=== PATIENT | female | born 1950 | race Caucasian/White ===

== ENCOUNTER 2019-05-01 09:39 | Emergency (ER) | payer MEDICARE, OTHER ==
[2019-05-01 09:50] VITALS: TEMP 98
--- NOTE | 2019-05-01 10:04 | ED ---
General Adult HPI - General Chief complaint: Anxiety Stated complaint: EPS eval Time Seen by Provider: 05/01/19 09:44 Source: patient, EMS, RN notes reviewed Mode of arrival: EMS Limitations: no limitations - History of Present Illness Initial comments: 68-year-old female presents emergency department via EMS for psychiatric evaluation. Patient reportedly locked herself out of the house so she called police upon arrival she was found to be depressed, suicidal. Patient states that she lost her 1 month ago. Patient states that she is not coping well with this. She states that she does feels that she does not know why she was left behind. She has not given any exact suicidal ideation and no plan. Denies any alcohol or drug abuse. She does admit that she fell yesterday because she tripped on her runner rug and did strike her head but she has no complaints of head, neck pain. She does have an abrasion on the left hand, states that her tetanus is up-to-date. - Related Data Home Medications Medication Instructions Recorded Confirmed Carisoprodol [Soma] 350 mg PO TID 09/03/15 05/01/19 DULoxetine HCL [Cymbalta] 60 mg PO DAILY 09/03/15 05/01/19 Enalapril [Vasotec] 10 mg PO DAILY 09/03/15 05/01/19 Folic Acid 1 mg PO DAILY 09/03/15 05/01/19 Furosemide [Lasix] 40 mg PO DAILY 09/03/15 05/01/19 Hydroxychloroquine Sulfate 200 mg PO HS 09/03/15 05/01/19 [Plaquenil] Omeprazole [PriLOSEC] 20 mg PO AC-BRKFST 09/03/15 05/01/19 Estradiol Cream [Estrace Cream 1 gm VAGINAL DIRECTED 05/01/19 05/01/19 0.01%] Hydrocodone/Acetaminophen [[place] 1 tab PO Q6H PRN 05/01/19 05/01/19 10-325] Methotrexate Sod 25mg/Ml Injec 25 mg SQ WE 05/01/19 05/01/19 Morphine Sulfate [Ms Contin] 30 mg PO Q12HR 05/01/19 05/01/19 busPIRone HCl [Buspar] 10 mg PO BID 05/01/19 05/01/19 Allergies Allergy/AdvReac Type Severity Reaction Status Date / Time adalimumab [From Humira] Allergy Rash/Hives Verified 05/01/19 11:49 cephalexin monohydrate Allergy Rash/Hives Verified 05/01/19 11:49 [From Keflex] meperidine HCl [From Demerol] AdvReac Nausea & Verified 05/01/19 11:49 Vomiting TB Med Allergy Unknown Uncoded 05/01/19 11:49 Review of Systems ROS Statement: Those systems with pertinent positive or pertinent negative responses have been documented in the HPI. ROS Other: All systems not noted in ROS Statement are negative. Past Medical History Past Medical History: Hypertension, Rheumatoid Arthritis (RA) History of Any Multi-Drug Resistant Organisms: None Reported Past Surgical History: Hysterectomy, Joint Replacement, Tonsillectomy Past Psychological History: No Psychological Hx Reported Smoking Status: Never smoker Past Alcohol Use History: None Reported Past Drug Use History: None Reported General Exam Limitations: no limitations General appearance: alert, in no apparent distress Head exam: Present: atraumatic, normocephalic. Absent: normal inspection (small hematoma on the right side of forehead) Eye exam: Present: normal appearance, PERRL, EOMI. Absent: scleral icterus, conjunctival injection, periorbital swelling ENT exam: Present: normal exam, mucous membranes moist Neck exam: Present: normal inspection, full ROM. Absent: tenderness, meningismus, lymphadenopathy Respiratory exam: Present: normal lung sounds bilaterally. Absent: respiratory distress, wheezes, rales, rhonchi, stridor Cardiovascular Exam: Present: regular rate, normal rhythm, normal heart sounds. Absent: systolic murmur, diastolic murmur, rubs, gallop, clicks Extremities exam: Present: other (abrasion to the left hand fourth fdigit) Course Vital Signs 05/01/19 09:45 Temperature 98.0 F Pulse Rate 87 Respiratory 16 Rate Blood Pressure 137/75 O2 Sat by Pulse 95 Oximetry - Reevaluation(s) Reevaluation #1: 05/01/19 10:[address] of the head and neck patient refuses states that she is asymptomatic. Medical Decision Making - Medical Decision Making patient evaluated by EPS case discussed with psychiatrist recommends patient be discharged she is not suicidal she does contract for safety and she does have underlying depression from recent grieving deaths. - Lab Data Lab Results 12/16/19 Range/Units 10:25 Urine Opiates Screen Detected H (NotDetected) Ur Oxycodone Screen Not Detected (NotDetected) Urine Methadone Screen Not Detected (NotDetected) Ur Propoxyphene Screen Not Detected (NotDetected) Ur Barbiturates Screen Not Detected (NotDetected) U Tricyclic Antidepress Not Detected (NotDetected) Ur Phencyclidine Scrn Not Detected (NotDetected) Ur Amphetamines Screen Not Detected (NotDetected) U Methamphetamines Scrn Not Detected (NotDetected) U Benzodiazepines Scrn Detected H (NotDetected) Urine Cocaine Screen Not Detected (NotDetected) U Marijuana (THC) Screen Not Detected (NotDetected) Disposition Clinical Impression: Depression Disposition: HOME SELF-CARE Condition: Stable Instructions (If sedation given, give patient instructions): Depression (ED) Additional Instructions: Please return to the Emergency Department if symptoms worsen or any other concerns. Is patient prescribed a controlled substance at d/c from ED?: No Referrals: Marina Franklin MD [Primary Care Provider] - 1-2 days Time of Disposition: 14:05
[2019-05-01 10:55] LABS: Amphetamine Screen,Urine Not Detected (NotDetected); Barbiturate Screen,Urine Not Detected (NotDetected); Benzodiazepines Screen,Urine Detected (NotDetected); Cocaine Screen,Urine Not Detected (NotDetected); Methadone Screen, Urine Not Detected (NotDetected); Opiate Screen,Urine Detected (NotDetected); Oxycodone Screen, Urine Not Detected (NotDetected); Phencyclidine Screen,Urine Not Detected (NotDetected); Tricyclic Antidepressant,Urine Not Detected (NotDetected); Urn Cannabinoid Scrn Not Detected (NotDetected)
--- NOTE | 2019-05-01 13:52 | CT ---
EXAMINATION TYPE: CT brain tatum [facility] con DATE OF EXAM: 05/01/2019 COMPARISON: 09/03/2015 HISTORY: Fall, bruise to right side supraorbital area CT DLP: 1281.[address] of the brain was performed. The ventricles, basal cisterns and sulci overlying the cerebral convexities demonstrate mild enlargem ent. There is no evidence for intracranial hemorrhage or sulcal effacement. There is decreased attenuatio n about the periventricular white matter and deep white matter of both cerebral hemispheres, compatib le with chronic small vessel ischemia. No mass effects are seen. If symptoms persist consider MRI. Osseous calvarium is intact. IMPRESSION: 1. Age related atrophic and chronic small vessel ischemic change without acute intracranial process seen at this time. CT Cervical Spine: Unenhanced CT of the cervical spine was performed with bone and soft tissue window settings submitted . Coronal and sagittal reconstruction is obtained. There is normal alignment and prevertebral soft tissues. No evidence for acute cervical fracture . Scattered degenerative disc disease and spondylosis. Biapical scarring. IMPRESSION: 1. No evidence for acute fracture or subluxation of the cervical spine.
[2019-05-01 14:44] VITALS: BP 130/70; PULSE 88; RESP 18
== END 2019-05-01 14:10 | disposition home or self-care (01) ==
LOC: EC 09:39
DX: F32.9 Major depressive disorder, single episode, unspecified (principal); S60.512A Abrasion of left hand, initial encounter; I10 Essential (primary) hypertension; M06.9 Rheumatoid arthritis, unspecified; Z79.899 Other long term (current) drug therapy; Z88.1 Allergy status to other antibiotic agents; Z88.5 Allergy status to narcotic agent; Z88.7 Allergy status to serum and vaccine; Z88.8 Allergy status to other drugs, medicaments and biological substances; W01.0XXA Fall on same level from slipping, tripping and stumbling without subsequent striking against object, initial encounter
CPT/HCPCS: 70450; 72125; 80306; 82075; 99284

== ENCOUNTER 2019-05-03 11:43 | Emergency (ER) | payer MEDICARE, OTHER ==
[2019-05-03 12:15] VITALS: TEMP 98.3
[2019-05-03 13:39] VITALS: RESP 18
[2019-05-03 13:50] LABS: Basophils % (A) 0 %; Eosinophils # (A) 0.3 k/uL (0-0.7); Eosinophils % (A) 5 %; HCT 31.2 % (34.0-46.0); HGB 11.7 gm/dL (11.4-16.0); Lymphocytes # (A) 1.4 k/uL (1.0-4.8); Lymphocytes % (A) 23 %; MCH 35.8 pg (25.0-35.0); MCHC 37.3 g/dL (31.0-37.0); MCV 95.9 fL (80.0-100.0); Mean Platelet Volume 6.7; Monocytes # (A) 0.3 k/uL (0-1.0); Monocytes % (A) 5 %; Neutrophils % (A) 64 %; Platelet Count 372 k/uL (150-450); RBC 3.26 m/uL (3.80-5.40); RDW 14.3 % (11.5-15.5); WBC 6.2 k/uL (3.8-10.6)
[2019-05-03 14:18] LABS: Albumin 4.6 g/dL (3.5-5.0); Appearance,Urine Clear (Clear); Bilirubin,Urine Negative (Negative); Blood,Urine Negative (Negative); Calcium 9.5 mg/dL (8.4-10.2); Color,Urine Light Yellow; Glucose,Urine (UA) Negative (Negative); Hyaline Casts,Urine 6 /lpf (0-2); Ketones,Urine Negative (Negative); Leukocyte Esterase,Urine Small (Negative); Mucus,Urine Rare /hpf; Nitrite,Urine Negative (Negative); Potassium 3.9 mmol/L (3.5-5.1); Protein,Urine Negative (Negative); RBC,Urine 1 /hpf (0-5); Specific Gravity,Urine 1.006 (1.001-1.035); Squamous Epithelial Cell,Urine 5 /hpf (0-4); Total Bilirubin 0.6 mg/dL (0.2-1.3); Total Protein 7.8 g/dL (6.3-8.2); Urobilinogen,Urine <2.0 mg/dL (<2.0); WBC,Urine 6 /hpf (0-5)
--- NOTE | 2019-05-03 14:25 | ED ---
General Adult HPI - General Chief complaint: Recheck/Abnormal Lab/Rx Stated complaint: Dehydration Source: patient Mode of arrival: ambulatory Limitations: no limitations - History of Present Illness Initial comments: The patient is a [age] female presents the emergency department with reported possible dehydration. She states that she sustained a mechanical fall 2 days ago and hit her head. She did come into the emergency room and had a CT performed. Imaging was negative. She then called and discussed the case with her primary care physician. Her primary care physician said that her weakness may have been from dehydration she wanted her to go into the emergency room and be evaluated. The patient states that she lost her 2 months ago. She has been grieving his loss. She has been eating and drinking without difficulty. Denies any difficulties with sleep. States that she does feel that on most days however she thinks that she is getting over the loss fairly well. Her primary care physician feels that it is taking her too long to grieve. The patient denies any suicidal, homicidal ideations. No hallucinations. Denies any drug use. There are no other alleviating, precipitating or modifying - Related Data Home Medications Medication Instructions Recorded Confirmed Carisoprodol [Soma] 350 mg PO TID 09/03/15 05/01/19 DULoxetine HCL [Cymbalta] 60 mg PO DAILY 09/03/15 05/01/19 Enalapril [Vasotec] 10 mg PO DAILY 09/03/15 05/01/19 Folic Acid 1 mg PO DAILY 09/03/15 05/01/19 Furosemide [Lasix] 40 mg PO DAILY 09/03/15 05/01/19 Hydroxychloroquine Sulfate 200 mg PO HS 09/03/15 05/01/19 [Plaquenil] Omeprazole [PriLOSEC] 20 mg PO AC-BRKFST 09/03/15 05/01/19 Estradiol Cream [Estrace Cream 1 gm VAGINAL DIRECTED 05/01/19 05/01/19 0.01%] Hydrocodone/Acetaminophen [[place] 1 tab PO Q6H PRN 05/01/19 05/01/19 10-325] Methotrexate Sod 25mg/Ml Injec 25 mg SQ WE 05/01/19 05/01/19 Morphine Sulfate [Ms Contin] 30 mg PO Q12HR 05/01/19 05/01/19 busPIRone HCl [Buspar] 10 mg PO BID 05/01/19 05/01/19 Allergies Allergy/AdvReac Type Severity Reaction Status Date / Time adalimumab [From Humira] Allergy Rash/Hives Verified 05/01/19 11:49 cephalexin monohydrate Allergy Rash/Hives Verified 05/01/19 11:49 [From Keflex] meperidine HCl [From Demerol] AdvReac Nausea & Verified 05/01/19 11:49 Vomiting TB Med Allergy Unknown Uncoded 05/01/19 11:49 Review of Systems ROS Statement: Those systems with pertinent positive or pertinent negative responses have been documented in the HPI. ROS Other: All systems not noted in ROS Statement are negative. Past Medical History Past Medical History: Hypertension, Rheumatoid Arthritis (RA) History of Any Multi-Drug Resistant Organisms: None Reported Past Surgical History: Hysterectomy, Joint Replacement, Tonsillectomy Past Psychological History: No Psychological Hx Reported Smoking Status: Never smoker Past Alcohol Use History: None Reported Past Drug Use History: None Reported General Exam Limitations: no limitations Course Vital Signs 05/03/19 05/03/19 05/03/19 12:12 13:37 15:37 Temperature 98.3 F Pulse Rate 96 70 90 Respiratory 19 18 18 Rate Blood Pressure 107/63 128/70 121/72 O2 Sat by Pulse 93 L 100 100 Oximetry 05/03/19 17:10 Temperature Pulse Rate 78 Respiratory 18 Rate Blood Pressure 138/72 O2 Sat by Pulse 100 Oximetry Medical Decision Making - Medical Decision Making Upon arrival the patient was placed into hallway 11. I did a thorough history and physical exam. The patient denies that she is suicidal or homicidal. A complete laboratory studies to evaluate for dehydration. CBC, CMP are within normal range. Urinalysis shows small leukocyte esterase with 6 white blood cells. No bacteria. I did receive a call from the patient's primary care physician who states that they are concerned for the patient's safety. They state that she has been having erratic behavior and made some comments to her brother and passed her that she didn't want to live. Because of this I did director of group counseling program bps. They did evaluate the patient's. She is of sound mind during the evaluation. They do believe that the patient is stable for discharge. 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 The patient is of sound mind and not curren tly suicidal, homicidal or hallucinating. The patient will be discharged home. She is asked to return to the emergency room for any worsening symptoms. - Lab Data Result diagrams: 05/03/19 13:30 05/03/19 13:30 Lab Results 05/03/19 05/03/19 05/03/19 Range/Units 13:30 13:30 13:30 WBC 6.2 (3.8-10.6) k/uL RBC 3.26 L (3.80-5.40) m/uL Hgb 11.7 (11.4-16.0) gm/dL Hct 31.2 L (34.0-46.0) % MCV 95.9 (80.0-100.0) fL MCH 35.8 H (25.0-35.0) pg MCHC 37.3 H (31.0-37.0) g/dL RDW 14.3 (11.5-15.5) % Plt Count 372 (150-450) k/uL Neutrophils % 64 % Lymphocytes % 23 % Monocytes % 5 % Eosinophils % 5 % Basophils % 0 % Neutrophils # 4.0 (1.3-7.7) k/uL Lymphocytes # 1.4 (1.0-4.8) k/uL Monocytes # 0.3 (0-1.0) k/uL Eosinophils # 0.3 (0-0.7) k/uL Basophils # 0.0 (0-0.2) k/uL Sodium 142 (137-145) mmol/L Potassium 3.9 (3.5-5.1) mmol/L Chloride 112 H (98-107) mmol/L Carbon Dioxide 19 L (22-30) mmol/L Anion Gap 11 mmol/L BUN 24 H (7-17) mg/dL Creatinine 1.12 H (0.52-1.04) mg/dL Est GFR (CKD-EPI)AfAm 59 (>60 ml/min/1.73 sqM) Est GFR (CKD-EPI)NonAf 51 (>60 ml/min/1.73 sqM) Glucose 121 H (74-99) mg/dL Calcium 9.5 (8.4-10.2) mg/dL Total Bilirubin 0.6 (0.2-1.3) mg/dL AST 45 H (14-36) U/L ALT 28 (4-34) U/L Alkaline Phosphatase 104 (38-126) U/L Total Protein 7.8 (6.3-8.2) g/dL Albumin 4.6 (3.5-5.0) g/dL Urine Color Light Yellow Urine Appearance Clear (Clear) Urine pH 5.0 (5.0-8.0) Ur Specific [place] 1.006 (1.001-1.035) Urine Protein Negative (Negative) Urine Glucose (UA) Negative (Negative) Urine Ketones Negative (Negative) Urine Blood Negative (Negative) Urine Nitrite Negative (Negative) Urine Bilirubin Negative (Negative) Urine Urobilinogen <2.0 (<2.0) mg/dL Ur Leukocyte Esterase Small H (Negative) Urine RBC 1 (0-5) /hpf Urine WBC 6 H (0-5) /hpf Ur Squamous Epith Cells 5 H (0-4) /hpf Hyaline Casts 6 H (0-2) /lpf Urine Mucus Rare H (None) /hpf Disposition Clinical Impression: Dehydration, Depression Disposition: HOME SELF-CARE Condition: Stable Additional Instructions: Please follow up with your primary care doctor in 2-4 days. Return to the emergency room for any new or worsening symptoms Is patient prescribed a controlled substance at d/c from ED?: No Referrals: Marina Franklin MD [Primary Care Provider] - 1-2 days Time of Disposition: 16:56
[2019-05-03 17:11] VITALS: BP 138/72; PULSE 78
== END 2019-05-03 17:10 | disposition home or self-care (01) ==
LOC: EC 11:43
DX: E86.0 Dehydration (principal); F32.9 Major depressive disorder, single episode, unspecified; Z79.899 Other long term (current) drug therapy; Z88.5 Allergy status to narcotic agent; Z88.1 Allergy status to other antibiotic agents; Z88.8 Allergy status to other drugs, medicaments and biological substances
CPT/HCPCS: 36415; 80053; 81001; 82075; 85025; 99283

== ENCOUNTER 2020-08-26 14:54 | Inpatient (IN) | payer MEDICARE, OTHER ==
[2020-08-26] MEDS ORDERED: SODIUM CHLORIDE 0.9% 1,000 ML IV ONE (15:29)
[2020-08-26 15:50] LABS: HCT 32.3 % (34.0-46.0); HGB 10.6 gm/dL (11.4-16.0); MCH 31.8 pg (25.0-35.0); MCHC 32.9 g/dL (31.0-37.0); MCV 96.6 fL (80.0-100.0); Mean Platelet Volume 6.7; Platelet Count 566 k/uL (150-450); RBC 3.34 m/uL (3.80-5.40); RDW 14.8 % (11.5-15.5); WBC 36.1 k/uL (3.8-10.6)
--- NOTE | 2020-08-26 15:56 | ED ---
General Adult HPI - General Chief complaint: Altered Mental Status Stated complaint: CARYL Time Seen by Provider: 08/26/20 15:06 Source: patient, EMS, RN notes reviewed Mode of arrival: EMS Limitations: altered mental status - History of Present Illness Initial comments: Patient is a pleasant 69-year-old female presenting to the emergency department with confusion. Patient was found wandering around her yard. Patient is unclear why. Patient is able to answer questions however does need to be re- asked questions at times or redirected on instructions. Patient does admit to having some difficulty in breathing. Patient is unclear of any history of dyspnea. Patient is a poor historian. - Related Data Home Medications Medication Instructions Recorded Confirmed Carisoprodol [Soma] 350 mg PO TID 09/03/15 08/26/20 DULoxetine HCL [Cymbalta] 60 mg PO DAILY 09/03/15 08/26/20 Enalapril [Vasotec] 10 mg PO DAILY 09/03/15 08/26/20 Furosemide [Lasix] 40 mg PO DAILY 09/03/15 08/26/20 Hydroxychloroquine Sulfate 200 mg PO DAILY 09/03/15 08/26/20 [Plaquenil] Hydrocodone/Acetaminophen [Duff 1 tab PO Q4H PRN 05/01/19 08/26/20 10-325] Methotrexate Sod 25mg/Ml Injec 15 mg SQ Q7D 05/01/19 08/26/20 Morphine Sulfate [Ms Contin] 30 mg PO Q12HR PRN 05/01/19 08/26/20 busPIRone HCl [Buspar] 10 mg PO BID 05/01/19 08/26/20 Fluticasone Nasal [place] [Flonase 2 spr EA NOSTRIL DAILY 08/26/20 08/26/20 Nasal [place]] Sulfamethoxazole/Trimethoprim 1 tab PO BID 08/26/20 08/26/20 [Bactrim DS 800-160 mg] Allergies Allergy/AdvReac Type Severity Reaction Status Date / Time adalimumab [From Humira] Allergy Rash/Hives Verified 08/26/20 16:55 cephalexin monohydrate Allergy Rash/Hives Verified 08/26/20 16:55 [From Keflex] meperidine HCl [From Demerol] AdvReac Nausea & Verified 08/26/20 16:55 Vomiting TB Med Allergy Unknown Uncoded 08/26/20 15:07 Review of Systems ROS Statement: Those systems with pertinent positive or pertinent negative responses have been documented in the HPI. ROS Other: All systems not noted in ROS Statement are negative. Constitutional: Denies: fever Eyes: Denies: eye pain ENT: Denies: ear pain Respiratory: Reports: as per HPI, dyspnea Cardiovascular: Denies: chest pain Endocrine: Denies: fatigue Gastrointestinal: Denies: abdominal pain Genitourinary: Denies: dysuria Musculoskeletal: Denies: back pain Skin: Denies: rash Neurological: Reports: as per HPI. Denies: headache, weakness Past Medical History Past Medical History: Hypertension, Rheumatoid Arthritis (RA) History of Any Multi-Drug Resistant Organisms: None Reported Past Surgical History: Hysterectomy, Joint Replacement, Tonsillectomy Past Psychological History: No Psychological Hx Reported Smoking Status: Former smoker Past Alcohol Use History: None Reported Past Drug Use History: None Reported General Exam Limitations: altered mental status General appearance: alert, in no apparent distress Head exam: Present: atraumatic, normocephalic Eye exam: Present: normal appearance, PERRL, EOMI. Absent: nystagmus ENT exam: Present: mucous membranes dry Neck exam: Present: normal inspection. Absent: tenderness, meningismus Respiratory exam: Present: normal lung sounds bilaterally Cardiovascular Exam: Present: regular rate, normal rhythm GI/Abdominal exam: Present: soft. Absent: tenderness Extremities exam: Present: normal inspection Neurological exam: Present: alert, oriented X3, CN II-XII intact, other (Occasionally needs to be redirected or re asked questions). Absent: motor sensory deficit Psychiatric exam: Present: normal affect, normal mood Skin exam: Present: normal color Course Vital Signs 08/26/20 08/26/20 08/26/20 14:58 15:30 16:00 Temperature 98.8 F Pulse Rate 97 97 Respiratory 24 20 Rate Blood Pressure 108/51 94/63 O2 Sat by Pulse 94 L 87 L 90 L Oximetry 08/26/20 08/26/20 16:21 17:10 Temperature Pulse Rate 90 90 Respiratory 20 20 Rate Blood Pressure 118/59 107/66 O2 Sat by Pulse 90 L 89 L Oximetry EKG Findings - EKG Comments: EKG Findings:: Normal sinus rhythm and 94. IL 120. QRS 76. QT 358. QTC 447. Normal axis. Low QRS voltage. Nonspecific ST-T. Medical Decision Making - Medical Decision Making Patient reevaluated. Patient updated. Case discussed in detail with Dr. muñoz, who will admit covering for Dr. Pascal. He does agree with consult with nephrology and pulmonology. Patient has been increased to Ventimask. - Lab Data Result diagrams: 08/26/20 15:35 08/26/20 15:35 Lab Results 08/26/20 08/26/20 08/26/20 Range/Units 15:35 15:35 15:35 WBC 36.1 H (3.8-10.6) k/uL RBC 3.34 L (3.80-5.40) m/uL Hgb 10.6 L (11.4-16.0) gm/dL Hct 32.3 L (34.0-46.0) % MCV 96.6 (80.0-100.0) fL MCH 31.8 (25.0-35.0) pg MCHC 32.9 (31.0-37.0) g/dL RDW 14.8 (11.5-15.5) % Plt Count 566 H (150-450) k/uL MPV 6.7 PT 10.3 (9.0-12.0) sec INR 1.0 (<1.2) APTT 21.5 L (22.0-30.0) sec Sample Site ABG pH (7.35-7.45) ABG pCO2 (35-45) mmHg ABG pO2 (83-108) mmHg ABG HCO3 (21-25) mmol/L ABG Total CO2 (19-24) mmol/L ABG O2 Saturation (94-97) % ABG Base Excess mmol/L Law Test VBG pH (7.31-7.41) VBG pCO2 (37-51) mmHg VBG HCO3 (24-28) mmol/L FiO2 % Sodium (137-145) mmol/L Potassium (3.5-5.1) mmol/L Chloride (98-107) mmol/L Carbon Dioxide (22-30) mmol/L Anion Gap mmol/L BUN (7-17) mg/dL Creatinine (0.52-1.04) mg/dL Est GFR (CKD-EPI)AfAm (>60 ml/min/1.73 sqM) Est GFR (CKD-EPI)NonAf (>60 ml/min/1.73 sqM) Glucose (74-99) mg/dL POC Glucose (mg/dL) (75-99) mg/dL POC Glu Hazardous Waste Management Specialist ID Calcium (8.4-10.2) mg/dL Total Bilirubin (0.2-1.3) mg/dL AST (14-36) U/L ALT (4-34) U/L Alkaline Phosphatase (38-126) U/L Ammonia (<30) umol/L Troponin I (0.000-0.034) ng/mL Total Protein (6.3-8.2) g/dL Albumin (3.5-5.0) g/dL Urine Color Yellow Urine Appearance Cloudy H (Clear) Urine pH 5.0 (5.0-8.0) Ur Specific [place] 1.015 (1.001-1.035) Urine Protein 1+ H (Negative) Urine Glucose (UA) Negative (Negative) Urine Ketones Negative (Negative) Urine Blood Small H (Negative) Urine Nitrite Negative (Negative) Urine Bilirubin 1+ H (Negative) Urine Urobilinogen <2.0 (<2.0) mg/dL Ur Leukocyte Esterase Negative (Negative) Urine RBC 1 (0-5) /hpf Urine WBC 3 (0-5) /hpf Ur Squamous Epith Cells 2 (0-4) /hpf Urine Bacteria Rare H (None) /hpf Hyaline Casts 39 H (0-2) /lpf Urine Mucus Rare H (None) /hpf Urine Opiates Screen Detected H (NotDetected) Ur Oxycodone Screen Not Detected (NotDetected) Urine Methadone Screen Not Detected (NotDetected) Ur Propoxyphene Screen Not Detected (NotDetected) Ur Barbiturates Screen Not Detected (NotDetected) U Tricyclic Antidepress Not Detected (NotDetected) Ur Phencyclidine Scrn Not Detected (NotDetected) Ur Amphetamines Screen Not Detected (NotDetected) U Methamphetamines Scrn Not Detected (NotDetected) U Benzodiazepines Scrn Not Detected (NotDetected) Urine Cocaine Screen Not Detected (NotDetected) U Marijuana (THC) Screen Not Detected (NotDetected) Coronavirus (PCR) (Not Detectd) 08/26/20 08/26/2008/26/21 Range/Units 15:35 15:35 15:35 WBC (3.8-10.6) k/uL RBC (3.80-5.40) m/uL Hgb (11.4-16.0) gm/dL Hct (34.0-46.0) % MCV (80.0-100.0) fL MCH (25.0-35.0) pg MCHC (31.0-37.0) g/dL RDW (11.5-15.5) % Plt Count (150-450) k/uL MPV PT (9.0-12.0) sec INR (<1.2) APTT (22.0-30.0) sec Sample Site ABG pH (7.35-7.45) ABG pCO2 (35-45) mmHg ABG pO2 (83-108) mmHg ABG HCO3 (21-25) mmol/L ABG Total CO2 (19-24) mmol/L ABG O2 Saturation (94-97) % ABG Base Excess mmol/L Law Test VBG pH (7.31-7.41) VBG pCO2 (37-51) mmHg VBG HCO3 (24-28) mmol/L FiO2 % Sodium 135 L (137-145) mmol/L Potassium 5.3 H (3.5-5.1) mmol/L Chloride 103 (98-107) mmol/L Carbon Dioxide 12 L (22-30) mmol/L Anion Gap 20 mmol/L BUN 75 H (7-17) mg/dL Creatinine 6.54 H (0.52-1.04) mg/dL Est GFR (CKD-EPI)AfAm 7 (>60 ml/min/1.73 sqM) Est GFR (CKD-EPI)NonAf 6 (>60 ml/min/1.73 sqM) Glucose 115 H (74-99) mg/dL POC Glucose (mg/dL) (75-99) mg/dL POC Glu Hazardous Waste Management Specialist ID Calcium 8.3 L (8.4-10.2) mg/dL Total Bilirubin 0.4 (0.2-1.3) mg/dL AST 40 H (14-36) U/L ALT 17 (4-34) U/L Alkaline Phosphatase 115 (38-126) U/L Ammonia 30 H (<30) umol/L Troponin I 0.022 (0.000-0.034) ng/mL Total Protein 6.5 (6.3-8.2) g/dL Albumin 3.7 (3.5-5.0) g/dL Urine Color Urine Appearance (Clear) Urine pH (5.0-8.0) Ur Specific [place] (1.001-1.035) Urine Protein (Negative) Urine Glucose (UA) (Negative) Urine Ketones (Negative) Urine Blood (Negative) Urine Nitrite (Negative) Urine Bilirubin (Negative) Urine Urobilinogen (<2.0) mg/dL Ur Leukocyte Esterase (Negative) Urine RBC (0-5) /hpf Urine WBC (0-5) /hpf Ur Squamous Epith Cells (0-4) /hpf Urine Bacteria (None) /hpf Hyaline Casts (0-2) /lpf Urine Mucus (None) /hpf Urine Opiates Screen (NotDetected) Ur Oxycodone Screen (NotDetected) Urine Methadone Screen (NotDetected) Ur Propoxyphene Screen (NotDetected) Ur Barbiturates Screen (NotDetected) U Tricyclic Antidepress (NotDetected) Ur Phencyclidine Scrn (NotDetected) Ur Amphetamines Screen (NotDetected) U Methamphetamines Scrn (NotDetected) U Benzodiazepines Scrn (NotDetected) Urine Cocaine Screen (NotDetected) U Marijuana (THC) Screen (NotDetected) Coronavirus (PCR) (Not Detectd) 08/26/20 08/26/20 08/26/20 Range/Units 15:57 15:59 16:00 WBC (3.8-10.6) k/uL RBC (3.80-5.40) m/uL Hgb (11.4-16.0) gm/dL Hct (34.0-46.0) % MCV (80.0-100.0) fL MCH (25.0-35.0) pg MCHC (31.0-37.0) g/dL RDW (11.5-15.5) % Plt Count (150-450) k/uL MPV PT (9.0-12.0) sec INR (<1.2) APTT (22.0-30.0) sec Sample Site ABG pH (7.35-7.45) ABG pCO2 (35-45) mmHg ABG pO2 (83-108) mmHg ABG HCO3 (21-25) mmol/L ABG Total CO2 (19-24) mmol/L ABG O2 Saturation (94-97) % ABG Base Excess mmol/L Law Test VBG pH 7.21 L (7.31-7.41) VBG pCO2 36 L (37-51) mmHg VBG HCO3 14 L (24-28) mmol/L FiO2 % Sodium (137-145) mmol/L Potassium (3.5-5.1) mmol/L Chloride (98-107) mmol/L Carbon Dioxide (22-30) mmol/L Anion Gap mmol/L BUN (7-17) mg/dL Creatinine (0.52-1.04) mg/dL Est GFR (CKD-EPI)AfAm (>60 ml/min/1.73 sqM) Est GFR (CKD-EPI)NonAf (>60 ml/min/1.73 sqM) Glucose (74-99) mg/dL POC Glucose (mg/dL) 117 H (75-99) mg/dL POC Glu Hazardous Waste Management Specialist ID Oliver, Johanna Calcium (8.4-10.2) mg/dL Total Bilirubin (0.2-1.3) mg/dL AST (14-36) U/L ALT (4-34) U/L Alkaline Phosphatase (38-126) U/L Ammonia (<30) umol/L Troponin I (0.000-0.034) ng/mL Total Protein (6.3-8.2) g/dL Albumin (3.5-5.0) g/dL Urine Color Urine Appearance (Clear) Urine pH (5.0-8.0) Ur Specific [place] (1.001-1.035) Urine Protein (Negative) Urine Glucose (UA) (Negative) Urine Ketones (Negative) Urine Blood (Negative) Urine Nitrite (Negative) Urine Bilirubin (Negative) Urine Urobilinogen (<2.0) mg/dL Ur Leukocyte Esterase (Negative) Urine RBC (0-5) /hpf Urine WBC (0-5) /hpf Ur Squamous Epith Cells (0-4) /hpf Urine Bacteria (None) /hpf Hyaline Casts (0-2) /lpf Urine Mucus (None) /hpf Urine Opiates Screen (NotDetected) Ur Oxycodone Screen (NotDetected) Urine Methadone Screen (NotDetected) Ur Propoxyphene Screen (NotDetected) Ur Barbiturates Screen (NotDetected) U Tricyclic Antidepress (NotDetected) Ur Phencyclidine Scrn (NotDetected) Ur Amphetamines Screen (NotDetected) U Methamphetamines Scrn (NotDetected) U Benzodiazepines Scrn (NotDetected) Urine Cocaine Screen (NotDetected) U Marijuana (THC) Screen (NotDetected) Coronavirus (PCR) Not Detected (Not Detectd) 08/26/20 Range/Units 16:28 WBC (3.8-10.6) k/uL RBC (3.80-5.40) m/uL Hgb (11.4-16.0) gm/dL Hct (34.0-46.0) % MCV (80.0-100.0) fL MCH (25.0-35.0) pg MCHC (31.0-37.0) g/dL RDW (11.5-15.5) % Plt Count (150-450) k/uL MPV PT (9.0-12.0) sec INR (<1.2) APTT (22.0-30.0) sec Sample Site Right Radial ABG pH 7.25 L (7.35-7.45) ABG pCO2 31 L (35-45) mmHg ABG pO2 69 L (83-108) mmHg ABG HCO3 13 L (21-25) mmol/L ABG Total CO2 14 L (19-24) mmol/L ABG O2 Saturation 89.0 L (94-97) % ABG Base Excess 13.9 mmol/L Law Test Yes VBG pH (7.31-7.41) VBG pCO2 (37-51) mmHg VBG HCO3 (24-28) mmol/L FiO2 45 % Sodium (137-145) mmol/L Potassium (3.5-5.1) mmol/L Chloride (98-107) mmol/L Carbon Dioxide (22-30) mmol/L Anion Gap mmol/L BUN (7-17) mg/dL Creatinine (0.52-1.04) mg/dL Est GFR (CKD-EPI)AfAm (>60 ml/min/1.73 sqM) Est GFR (CKD-EPI)NonAf (>60 ml/min/1.73 sqM) Glucose (74-99) mg/dL POC Glucose (mg/dL) (75-99) mg/dL POC Glu Hazardous Waste Management Specialist ID Calcium (8.4-10.2) mg/dL Total Bilirubin (0.2-1.3) mg/dL AST (14-36) U/L ALT (4-34) U/L Alkaline Phosphatase (38-126) U/L Ammonia (<30) umol/L Troponin I (0.000-0.034) ng/mL Total Protein (6.3-8.2) g/dL Albumin (3.5-5.0) g/dL Urine Color Urine Appearance (Clear) Urine pH (5.0-8.0) Ur Specific [place] (1.001-1.035) Urine Protein (Negative) Urine Glucose (UA) (Negative) Urine Ketones (Negative) Urine Blood (Negative) Urine Nitrite (Negative) Urine Bilirubin (Negative) Urine Urobilinogen (<2.0) mg/dL Ur Leukocyte Esterase (Negative) Urine RBC (0-5) /hpf Urine WBC (0-5) /hpf Ur Squamous Epith Cells (0-4) /hpf Urine Bacteria (None) /hpf Hyaline Casts (0-2) /lpf Urine Mucus (None) /hpf Urine Opiates Screen (NotDetected) Ur Oxycodone Screen (NotDetected) Urine Methadone Screen (NotDetected) Ur Propoxyphene Screen (NotDetected) Ur Barbiturates Screen (NotDetected) U Tricyclic Antidepress (NotDetected) Ur Phencyclidine Scrn (NotDetected) Ur Amphetamines Screen (NotDetected) U Methamphetamines Scrn (NotDetected) U Benzodiazepines Scrn (NotDetected) Urine Cocaine Screen (NotDetected) U Marijuana (THC) Screen (NotDetected) Coronavirus (PCR) (Not Detectd) - Radiology Data Radiology results: report reviewed (Computed tomography scan of the brain shows mild patchy chronic small vessel ischemic disease. No acute abnormality.), image reviewed (Chest x-ray shows patchy posterior infiltrate.) Critical Care Time Critical Care Time: Yes Total Critical Care Time: 32 Disposition Clinical Impression: Sepsis, Pneumonia, Acute renal failure (ARF) Disposition: ADMITTED IP TO THIS HOSP Condition: Serious Is patient prescribed a controlled substance at d/c from ED?: No Referrals: Marina Franklin MD [Primary Care Provider] - 1-2 days Decision Time: 17:39
[2020-08-26 16:02] LABS: Glucose,Whole Blood 117 mg/dL (75-99)
[2020-08-26 16:02] LABS: Albumin 3.7 g/dL (3.5-5.0); Calcium 8.3 mg/dL (8.4-10.2); Potassium 5.3 mmol/L (3.5-5.1); Total Bilirubin 0.4 mg/dL (0.2-1.3); Total Protein 6.5 g/dL (6.3-8.2)
[2020-08-26 16:11] LABS: Prothrombin Time 10.3 sec (9.0-12.0)
[2020-08-26 16:13] LABS: Partial Thromboplastin Time 21.5 sec (22.0-30.0)
[2020-08-26 16:18] LABS: Appearance,Urine Cloudy (Clear); Bacteria,Urine Rare /hpf; Bilirubin,Urine 1+ (Negative); Blood,Urine Small (Negative); Color,Urine Yellow; Glucose,Urine (UA) Negative (Negative); Hyaline Casts,Urine 39 /lpf (0-2); Ketones,Urine Negative (Negative); Leukocyte Esterase,Urine Negative (Negative); Mucus,Urine Rare /hpf; Nitrite,Urine Negative (Negative); Protein,Urine 1+ (Negative); RBC,Urine 1 /hpf (0-5); Specific Gravity,Urine 1.015 (1.001-1.035); Squamous Epithelial Cell,Urine 2 /hpf (0-4); Urobilinogen,Urine <2.0 mg/dL (<2.0); WBC,Urine 3 /hpf (0-5)
[2020-08-26 16:19] LABS: Amphetamine Screen,Urine Not Detected (NotDetected); Barbiturate Screen,Urine Not Detected (NotDetected); Benzodiazepines Screen,Urine Not Detected (NotDetected); Cocaine Screen,Urine Not Detected (NotDetected); Methadone Screen, Urine Not Detected (NotDetected); Opiate Screen,Urine Detected (NotDetected); Oxycodone Screen, Urine Not Detected (NotDetected); Phencyclidine Screen,Urine Not Detected (NotDetected); Tricyclic Antidepressant,Urine Not Detected (NotDetected); Urn Cannabinoid Scrn Not Detected (NotDetected)
[2020-08-26 16:21] LABS: VBG PH 7.21 (7.31-7.41)
--- NOTE | 2020-08-26 16:28 | CT ---
EXAMINATION TYPE: CT brain wo con DATE OF EXAM: 08/26/2020 COMPARISON: 05/01/2019 HISTORY: 69-year-old female confusion, altered mental status TECHNIQUE: Examination was done in axial plane without intravenous contrast. Coronal and sagittal r econstructions performed. CT DLP: 2192.4 mGycm Automated exposure control for dose reduction was used. FINDINGS: There is no evidence of acute intracranial hemorrhage, acute ischemic changes, mass, mass-effect, or extra-axial fluid collection. There is no effacement of cerebral sulci or basal subarachnoid cister ns. There is no hydrocephalus. There is no midline shift. Canales-white matter distinction is preserv ed. Mild patchy white matter hypodensities in both cerebral hemispheres. Visualized paranasal sinuses and mastoid air cells are pneumatized. Orbits and globes are intact. IMPRESSION: Mild patchy burden of chronic small vessel ischemic disease. No acute intracranial abnormality seen.
--- NOTE | 2020-08-26 16:29 | XR ---
EXAMINATION TYPE: XR chest 2V DATE OF EXAM: 08/26/2020 COMPARISON: None HISTORY: 69-year-old female confusion, altered mental status TECHNIQUE: AP and lateral views FINDINGS: Heart normal size. Aorta and pulmonary vasculature within normal limits. Patchy posterior basilar opa cities well-seen on the lateral view. No pleural effusion. IMPRESSION: Unable to exclude posterior basilar infiltrates best seen on the lateral view. Correlate for infectio us or aspiration pneumonitis.
[2020-08-26 16:41] LABS: ABG PH 7.25 (7.35-7.45); Allen Test Performed? Yes
[2020-08-26 16:42] LABS: ABG Base Excess 13.9 mmol/L; ABG HCO3 13 mmol/L (21-25); ABG PCO2 31 mmHg (35-45); ABG PO2 69 mmHg (83-108); ABG TCO2 14 mmol/L (19-24)
[2020-08-26] MEDS ORDERED: SODIUM CHLORIDE 0.9% 1,000 ML IV STA (17:40)
[2020-08-26] MEDS ORDERED: IPRATROPIUM-ALBUTEROL 3 ML NEB INHALATION PRN ×2 (17:41→17:56)
[2020-08-26] MEDS ORDERED: AZITHROMYCIN 500 MG in SODIUM CHLORIDE 0.9% 250 ML IVPB STA (17:41)
[2020-08-26] MEDS ORDERED: PNEUMONIA PROTOCOL UTILIZED 1 EACH MISC PO PRN (17:41)
[2020-08-26] MEDS ORDERED: LEVOFLOXACIN 500MG-D5W PMX 500 MG in DEXTROSE/WATER 1 100ML.BAG IVPB STA (17:44)
[2020-08-26] MEDS ORDERED: SODIUM CHLORIDE 0.9% 1,000 ML IV SCH (17:45)
[2020-08-26] MEDS ORDERED: NALOXONE 0.4 MG/ML 1 ML VIAL IVP STA (17:46)
[2020-08-26] MEDS ORDERED: ONDANSETRON 4 MG/2 ML VIAL IVP STA (18:09)
--- NOTE | 2020-08-26 18:12 | P.HPIM ---
History of Present Illness Patient's 69-year-old female came in with her to the ER with compensative confusion. Patient is able to provide me history patient knows year and where she is but not appropriate patient denied any fever chills patient denied any Dy suria. Patient does answer questions so the mother in appropriate. Patient does have constricted pupils patient was given a dose of Marcaine with the improvement in pupillary constriction patient is bit more awake still confused. Patient is found to have a severe metabolic acidosis and anion gap lactic acid is being obtained patient has white blood cell count of 36,000 doesn't have any fevers chest x-ray showed infiltrate in the posterior lung hurley possibly of aspiration patient is ALLERGIC to cephalosporins because of which patient was started on levofloxacin. Patient baseline creatinine is around 1.2 and patient is found to have creatinine was 6.5 ultrasound of the kidney will be obtained nephrology was consulted patient had coffee-ground emesis possibly of upper GI bleed, not gastroenterology will be consulted and patient was started on Protonix. Review of Systems Other review of systems is negative patient is confused unable to obtain most of review of systems Past Medical History Past Medical History: Hypertension, Rheumatoid Arthritis (RA) History of Any Multi-Drug Resistant Organisms: None Reported Past Surgical History: Hysterectomy, Joint Replacement, Tonsillectomy Past Psychological History: No Psychological Hx Reported Smoking Status: Former smoker Past Alcohol Use History: None Reported Past Drug Use History: None Reported Medications and Allergies Home Medications Medication Instructions Recorded Confirmed Type Carisoprodol [Soma] 350 mg PO TID 09/03/15 08/26/20 History DULoxetine HCL [Cymbalta] 60 mg PO DAILY 09/03/15 08/26/20 History Enalapril [Vasotec] 10 mg PO DAILY 09/03/15 08/26/20 History Furosemide [Lasix] 40 mg PO DAILY 09/03/15 08/26/20 History Hydroxychloroquine Sulfate 200 mg PO DAILY 09/03/15 08/26/20 History [Plaquenil] Hydrocodone/Acetaminophen [[place]ix 1 tab PO Q4H PRN 05/01/19 08/26/20 History 10-325] Methotrexate Sod 25mg/Ml Injec 15 mg SQ Q7D 05/01/19 08/26/20 History Morphine Sulfate [Ms Contin] 30 mg PO Q12HR PRN 05/01/19 08/26/20 History busPIRone HCl [Buspar] 10 mg PO BID 05/01/19 08/26/20 History Fluticasone Nasal [place] [Flonase 2 spr EA NOSTRIL DAILY 08/26/20 08/26/20 History Nasal [place]] Sulfamethoxazole/Trimethoprim 1 tab PO BID 08/26/20 08/26/20 History [Bactrim DS 800-160 mg] Allergies Allergy/AdvReac Type Severity Reaction Status Date / Time adalimumab [From Humira] Allergy Rash/Hives Verified 08/26/20 16:55 cephalexin monohydrate Allergy Rash/Hives Verified 08/26/20 16:55 [From Keflex] meperidine HCl [From Demerol] AdvReac Nausea & Verified 08/26/20 16:55 Vomiting TB Med Allergy Unknown Uncoded 08/26/20 15:07 Physical Exam Vitals: Vital Signs Temp Pulse Resp BP Pulse Ox 08/26/20 17:57 18 08/26/20 17:42 93 20 107/66 90 L 08/26/20 17:10 90 20 107/66 89 L 08/26/20 16:21 90 20 118/59 90 L 08/26/20 16:00 90 L 08/26/20 15:30 97 20 94/63 87 L 08/26/20 14:58 98.8 F 97 24 108/51 94 L Intake and Output 08/26/20 08/26/20 08/26/20 06:59 14:59 22:59 Other: Weight 54.431 kg PHYSICAL EXAMINATION: GENERAL: The patient is krupa confused oriented 3, not in any acute distress. Well developed, well nourished. HEENT: Restricted pupils nonreactive to light. EOMI. No scleral icterus. No conjunctival pallor. Normocephalic, atraumatic. No pharyngeal erythema. No thyromegaly. CARDIOVASCULAR: S1 and S2 present. No murmurs, rubs, or gallops. PULMONARY: Chest is clear to auscultation, no wheezing or crackles. ABDOMEN: Soft, nontender, nondistended, normoactive bowel sounds. No palpable organomegaly. MUSCULOSKELETAL: No joint swelling or deformity. EXTREMITIES: No cyanosis, clubbing, or pedal edema. NEUROLOGICAL: All 4 limbs doesn't appear to have any focal deficits SKIN: No rashes. Results CBC & Chem 7: 08/26/20 15:35 08/26/20 15:35 Labs: Abnormal Lab Results - Last 24 Hours (Table) 08/26/20 08/26/20 08/26/20 Range/Units 15:35 15:35 15:35 WBC 36.1 H (3.8-10.6) k/uL RBC 3.34 L (3.80-5.40) m/uL Hgb 10.6 L (11.4-16.0) gm/dL Hct 32.3 L (34.0-46.0) % Plt Count 566 H (150-450) k/uL APTT 21.5 L (22.0-30.0) sec ABG pH (7.35-7.45) ABG pCO2 (35-45) mmHg ABG pO2 (83-108) mmHg ABG HCO3 (21-25) mmol/L ABG Total CO2 (19-24) mmol/L ABG O2 Saturation (94-97) % VBG pH (7.31-7.41) VBG pCO2 (37-51) mmHg VBG HCO3 (24-28) mmol/L Sodium (137-145) mmol/L Potassium (3.5-5.1) mmol/L Carbon Dioxide (22-30) mmol/L BUN (7-17) mg/dL Creatinine (0.52-1.04) mg/dL Glucose (74-99) mg/dL POC Glucose (mg/dL) (75-99) mg/dL Calcium (8.4-10.2) mg/dL AST (14-36) U/L Ammonia (<30) umol/L Urine Appearance Cloudy H (Clear) Urine Protein 1+ H (Negative) Urine Blood Small H (Negative) Urine Bilirubin 1+ H (Negative) Urine Bacteria Rare H (None) /hpf Hyaline Casts 39 H (0-2) /lpf Urine Mucus Rare H (None) /hpf Urine Opiates Screen Detected H (NotDetected) 08/26/20 08/26/20 08/26/20 Range/Units 15:35 15:35 15:59 WBC (3.8-10.6) k/uL RBC (3.80-5.40) m/uL Hgb (11.4-16.0) gm/dL Hct (34.0-46.0) % Plt Count (150-450) k/uL APTT (22.0-30.0) sec ABG pH (7.35-7.45) ABG pCO2 (35-45) mmHg ABG pO2 (83-108) mmHg ABG HCO3 (21-25) mmol/L ABG Total CO2 (19-24) mmol/L ABG O2 Saturation (94-97) % VBG pH (7.31-7.41) VBG pCO2 (37-51) mmHg VBG HCO3 (24-28) mmol/L Sodium 135 L (137-145) mmol/L Potassium 5.3 H (3.5-5.1) mmol/L Carbon Dioxide 12 L (22-30) mmol/L BUN 75 H (7-17) mg/dL Creatinine 6.54 H (0.52-1.04) mg/dL Glucose 115 H (74-99) mg/dL POC Glucose (mg/dL) 117 H (75-99) mg/dL Calcium 8.3 L (8.4-10.2) mg/dL AST 40 H (14-36) U/L Ammonia 30 H (<30) umol/L Urine Appearance (Clear) Urine Protein (Negative) Urine Blood (Negative) Urine Bilirubin (Negative) Urine Bacteria (None) /hpf Hyaline Casts (0-2) /lpf Urine Mucus (None) /hpf Urine Opiates Screen (NotDetected) 08/26/20 08/26/20 Range/Units 16:00 16:28 WBC (3.8-10.6) k/uL RBC (3.80-5.40) m/uL Hgb (11.4-16.0) gm/dL Hct (34.0-46.0) % Plt Count (150-450) k/uL APTT (22.0-30.0) sec ABG pH 7.25 L (7.35-7.45) ABG pCO2 31 L (35-45) mmHg ABG pO2 69 L (83-108) mmHg ABG HCO3 13 L (21-25) mmol/L ABG Total CO2 14 L (19-24) mmol/L ABG O2 Saturation 89.0 L (94-97) % VBG pH 7.21 L (7.31-7.41) VBG pCO2 36 L (37-51) mmHg VBG HCO3 14 L (24-28) mmol/L Sodium (137-145) mmol/L Potassium (3.5-5.1) mmol/L Carbon Dioxide (22-30) mmol/L BUN (7-17) mg/dL Creatinine (0.52-1.04) mg/dL Glucose (74-99) mg/dL POC Glucose (mg/dL) (75-99) mg/dL Calcium (8.4-10.2) mg/dL AST (14-36) U/L Ammonia (<30) umol/L Urine Appearance (Clear) Urine Protein (Negative) Urine Blood (Negative) Urine Bilirubin (Negative) Urine Bacteria (None) /hpf Hyaline Casts (0-2) /lpf Urine Mucus (None) /hpf Urine Opiates Screen (NotDetected) Assessment and Plan Plan: -Altered mental status, toxic encephalopathy probably because of "opiate overdose, patient will be can you done IV fluids and patient was given a dose of Narcan. Patient remains confused and agitated. We will use Haldol for agitation. -Acute upper GI bleed secondary to be because of disease or gastritis patient will be started on Protonix Zofran gastric body was consulted -Anion gap are folic acidosis probably lactic acidosis patient was started on IV fluids Acute renal failure on chronic kidney disease stage II acute renal failure secondary to prerenal azotemia maybe even acute tubal necrosis will the rule out obstructive uropathy Marie catheter was replaced ultrasound of the kidneys will be obtained urine random creatinine urine random sodium will be obtained nephrology will be consulted. Lisinopril Bactrim, diuretics will be held, urinary symptoms will be obtained as well -Hypertension appears to have history of rheumatoid arthritis medications. -Depression
[2020-08-26] MEDS ORDERED: ONDANSETRON 4 MG/2 ML VIAL IVP PRN (18:16)
[2020-08-26] MEDS ORDERED: HALOPERIDOL LACTATE 5 MG/ML 1 ML VIAL IVP PRN (18:17)
[2020-08-26 18:53] LABS: Band Neutrophils % 1 %; Lymphocytes # (M) 0.36 k/uL (1.0-4.8); Monocytes # (M) 0.72 k/uL (0-1.0); Neutrophils % (M) 96 %; Nucleated Red Blood Cells 0 /100 WBC (0-0); Total Cells Counted 100
[2020-08-26] MEDS ORDERED: QUEtiapine 25 MG TAB PO STA (21:31)
[2020-08-26] MEDS: busPIRone HCl 10 MG TAB PO SCH (21:40)
[2020-08-26] MEDS: PANTOPRAZOLE 40 MG/10 ML VIAL IVP SCH (21:40)
[2020-08-26] MEDS: HEPARIN SODIUM,PORCINE/PF 5,000 UNIT/0.5 ML SYRINGE SQ SCH (21:41)
--- NOTE | 2020-08-26 21:50 | US ---
EXAMINATION TYPE: US kidneys/renal and bladder DATE OF EXAM: 08/26/2020 COMPARISON: NONE CLINICAL HISTORY: JEF. JEF per order. Patient very anxious and confused. Unable to obtain history. EXAM MEASUREMENTS: Right Kidney: 9.2 x 4.8 x 4.1 cm Left Kidney: 8.8 x 4.9 x 4.0 cm Very limited due to patient movement and bowel gas. Right Kidney: No hydronephrosis or masses seen Left Kidney: Appears slightly small, although measurement is slightly limited. Bladder: Unable to evaluate. Patient has catheter in place. Bilateral Jets seen: No IMPRESSION: Kidneys are small but no significant cortical thinning. No hydronephrosis.
[2020-08-27] MEDS: DEXTROSE 5% IN WATER 1,000 ML with SODIUM BICARB (1 MEQ/ML) 150 ML IV SCH ×3 (02:20→22:21)
[2020-08-27] MEDS ORDERED: HALOPERIDOL LACTATE 5 MG/ML 1 ML VIAL IM PRN (02:31)
[2020-08-27 08:26] LABS: African American GFR (CKD) 13 (>60 ml/min/1.73 sqM); Anion Gap 12 mmol/L; Blood Urea Nitrogen 68 mg/dL (7-17); Calcium 8.4 mg/dL (8.4-10.2); Carbon Dioxide 14 mmol/L (22-30); Chloride 110 mmol/L (98-107); Glucose 124 mg/dL (74-99); Magnesium 2.7 mg/dL (1.6-2.3); Non-African American GFR(CKD) 11 (>60 ml/min/1.73 sqM); Potassium 5.2 mmol/L (3.5-5.1); Sodium 136 mmol/L (137-145)
[2020-08-27] MEDS: HEPARIN SODIUM,PORCINE/PF 5,000 UNIT/0.5 ML SYRINGE SQ SCH ×2 (09:50→20:13)
[2020-08-27] MEDS: PANTOPRAZOLE 40 MG/10 ML VIAL IVP SCH ×2 (09:50→20:13)
[2020-08-27] MEDS: busPIRone HCl 10 MG TAB PO SCH ×2 (09:51→20:13)
[2020-08-27] MEDS: DULoxetine HCL 60 MG CAPSULE.DR PO SCH (09:51)
[2020-08-27] MEDS: FLUTICASONE 50MCG/SPRAY NASAL 16GM EA NOSTRIL SCH (09:52)
--- NOTE | 2020-08-27 10:40 | XR ---
EXAMINATION TYPE: XR chest 1V portable DATE OF EXAM: 08/27/2020 Comparison: 08/26/2020 Clinical History: 69-year-old female pneumonia Findings: Heart normal size. Aorta and pulmonary vasculature within normal limits. Patchy retrocardiac opacity remains. No pleural effusion. Impression: Persistent retrocardiac infiltrate.
--- NOTE | 2020-08-27 11:30 | P.NPCON ---
History of Present Illness - Reason for Consult acute renal failure - History of Present Illness Reason for admission: Acute kidney injury History of present illness: A patient is a 69-year-old female seen in consultation for acute kidney injury. Patient's creatinine in April 2019 was 1.12. This admission and was elevated at 6.54 and is down to 3.95 today. She is currently maintained on bicarb drip running at 100 mL an hour. Patient presented to the hospital with confusion. She was found wandering around her yard. She is currently not a reliable historian. Blood pressure was as low as 94/63 this admission. This morning it was 128/66. No edema. Has a Marie catheter. Nonoliguric. She was on enalapril as well as Lasix at home which are both healthy. Additionally Bactrim is also listed in her home medications but unclear as to when she last took her dose. COVID PCR was negative. Acidosis is improving. Bicarb level was 14 this morning. No vomiting or diarrhea. Renal ultrasound revealed no hydronephrosis. Chest x-ray suggestive of pneumonia. Receiving antibiotics. Vital signs are stable. General: The patient appeared well nourished and normally developed. HEENT: Head exam is unremarkable. Neck is without jugular venous distension. LUNGS: Breath sounds decreased. HEART: Rate and Rhythm are regular. ABDOMEN: Soft, nontender. EXTREMITITES: No edema. Past Medical History Past Medical History: Hypertension, Rheumatoid Arthritis (RA) History of Any Multi-Drug Resistant Organisms: None Reported Past Surgical History: Hysterectomy, Joint Replacement, Tonsillectomy Past Psychological History: No Psychological Hx Reported Smoking Status: Former smoker Past Alcohol Use History: None Reported Past Drug Use History: None Reported Medications and Allergies Home Medications Medication Instructions Recorded Confirmed Type Carisoprodol [Soma] 350 mg PO TID 09/03/15 08/26/20 History DULoxetine HCL [Cymbalta] 60 mg PO DAILY 09/03/15 08/26/20 History Enalapril [Vasotec] 10 mg PO DAILY 09/03/15 08/26/20 History Furosemide [Lasix] 40 mg PO DAILY 09/03/15 08/26/20 History Hydroxychloroquine Sulfate 200 mg PO DAILY 09/03/15 08/26/20 History [Plaquenil] Hydrocodone/Acetaminophen [[place] 1 tab PO Q4H PRN 05/01/19 08/26/20 History 10-325] Methotrexate Sod 25mg/Ml Injec 15 mg SQ Q7D 05/01/19 08/26/20 History Morphine Sulfate [Ms Contin] 30 mg PO Q12HR PRN 05/01/19 08/26/20 History busPIRone HCl [Buspar] 10 mg PO BID 05/01/19 08/26/20 History Fluticasone Nasal [place] [Flonase 2 spr EA NOSTRIL DAILY 08/26/20 08/26/20 History Nasal [place]] Sulfamethoxazole/Trimethoprim 1 tab PO BID 08/26/20 08/26/20 History [Bactrim DS 800-160 mg] Allergies Allergy/AdvReac Type Severity Reaction Status Date / Time adalimumab [From Humira] Allergy Rash/Hives Verified 08/26/20 16:55 cephalexin monohydrate Allergy Rash/Hives Verified 08/26/20 16:55 [From Keflex] meperidine HCl [From Demerol] AdvReac Nausea & Verified 08/26/20 16:55 Vomiting TB Med Allergy Unknown Uncoded 08/26/20 15:07 Physical Exam Vitals: Vital Signs Temp Pulse Pulse Resp BP BP Pulse Ox 08/27/20 10:36 98.6 F 97 16 128/66 93 L 08/27/20 08:00 16 08/27/20 06:00 97.8 F 93 109/57 93 L 08/27/20 02:50 98.6 F 103 H 20 119/63 95 08/26/20 20:33 98.5 F 20 101/57 91 L 08/26/20 20:00 91 L 08/26/20 19:11 99.5 F 98 22 104/58 96 08/26/20 18:15 91 22 147/75 93 L 08/26/20 17:57 18 08/26/20 17:42 93 20 107/66 90 L 08/26/20 17:10 90 20 107/66 89 L 08/26/20 16:21 90 20 118/59 90 L 08/26/20 16:00 90 L 08/26/20 15:30 97 20 94/63 87 L 08/26/20 14:58 98.8 F 97 24 108/51 94 L Intake and Output 08/26/20 08/27/2021 22:59 06:59 14:59 Output Total 1000 Balance -1000 Output: Urine 1000 Other: Voiding Method Indwelling Catheter Indwelling Catheter Results - Lab Results Most recent lab results ABG pH 7.25 (7.35-7.45) L 08/26/20 16:28 ABG pCO2 31 mmHg (35-45) L 08/26/20 16:28 ABG pO2 69 mmHg (83-108) L 08/26/20 16:28 ABG HCO3 13 mmol/L (21-25) L 08/26/20 16:28 ABG O2 Saturation 89.0 % (94-97) L 08/26/20 16:28 Calcium 8.4 mg/dL (8.4-10.2) 08/27/20 06:05 Magnesium 2.7 mg/dL (1.6-2.3) H 08/27/20 06:05 08/26/20 15:35 08/27/20 06:05 Assessment and Plan Plan: Assessment: 1. Acute kidney injury mostly prerenal improving with IV hydration. Creatinine 6.54 on admission and is 3.95 this morning. Creatinine was 1.12 in April 2019. No hydronephrosis noted on kidney ultrasound. Left kidney noted to be small in size. 2. Mild hyperkalemia secondary to acute kidney injury, enalapril and acidosis. ? Bactrim. 3. Metabolic acidosis secondary to acute kidney injury. 4. Acute hypoxia respiratory failure secondary to pneumonia currently on high flow nasal cannula. 5. Benign hypertension. Controlled. 6. Altered mental status. Possibly from hypoxia. Urine drug screen positive for opiates. She did receive Narcan. Plan: Maintain isotonic bicarbonate drip at 100 mL an hour. Maintain Marie catheter for now. Strict is and os. Avoid nephrotoxins. Hold off on antihypertensives and diuretics for now. Repeat electrolytes in the morning. Wean FiO2. Thank you for the consultation. I will continue to follow the patient with you during her hospital stay.
--- NOTE | 2020-08-27 12:42 | CDI ---
Sepsis is documented in the ED note 08/26. History/Risk Factors: 69-year-old female presents to the ED with confusion, the patient had constricted pupils was given a dose of Narcan. The patient had coffee ground emesis possibly of upper GI bleed. Medical history HTN and RA. H&P 08/26. Clinical Indicators: Patient is found to have severe metabolic acidosis and anion gap lactic acid is being obtained patient has Wbc count 36,000 doesnt have any fevers chest x ray showed infiltrate in the posterior lung [place] possibly of aspiration. H&P 08/26 WBC 41/2: 36.1 Lactic acid 08/26: 1.1 Vitals signs 08/26 14:58: B/P 108/51; HR 97; Temp 98.8 F. Oral; RR 24; SpO2 94% 4L nasal cannula. CXR 08/26: Patchy posterior basilar opacities well seen on the lateral view. Treatment: Antibiotics: 08/26 Levofloxacin 500mg IVPB x1; 08/27 Levofloxacin 500mg IVPB Q24HR. IV Bolus: 08/26 0.9NS 1L bolus. In your professional opinion, please clarify if these findings signify one of the following conditions: Sepsis POA Sepsis ruled out Other, please specify Unable to determine SIRS Criteria: 2 or more of the following may indicate SIRS -Temperature < 96.8F (36C) or > 101.0F (38.3C) -Heart Rate > 90 bpm -Respiratory Rate > 20 breaths/min or PaCO2 < 32 mmHg -White Blood Cell Count > 12,000 or < 4,000 cells/mm3 or > 10% bands No clear evidence of sepsis at this time [facility]
--- NOTE | 2020-08-27 13:14 | P.CNPUL ---
History of Present Illness Consult date: 08/27/20 Reason for consult: dyspnea History of present illness: 69-year-old female presented to the ED with altered mental status. The patient was confused. The patient was found to be wandering around in [place] in her apartment.. The patient was able to answer questions upon frequent questionings. The patient's was complaining of some shortness of breath. Essentially the history was limited and patient himself was very poor in her history providing ability. Pupils are constricted. She was found to have anion gap metabolic acidosis with elevated lactic acid level. White cell count was 36. Chest x-ray showed normal pulmonary infiltrates. Aspiration was considered and the patient was given Levaquin. The patient was also found to have an acute kidney injury in the creatinine was up to 6.5. He was 77 and the patient has anion gap metabolic acidosis with a serum bicarb of 12. The blood gas showed a pH of 7.25 with a pCO2 of 31 and pO2 of 69 and this was on FiO2 of 45%. The patient also had +1 bilirubin and +1 protein and her UA, negative for any infection, urine toxin was positive for opiates, the COVID 19 testing was neg ative. The patient was started on IV fluids and currently the patient is receiving normal saline at the rate of 130 mL an hour. The patient was given a dose of Levaquin in the emergency department. She was placed also on Levaquin. CAT scan of the brain showed mild patchy burden of chronic small vessel ischemic disease. No acute abnormalities noted. The ultrasound the kidneys showed no evidence of hydronephrosis. The patient is known to have RA and hypertension. The patient is currently on 10 L by nasal cannula to maintain saturation above 90%. Overnight, the patient was given IV fluids and the patient was also given bicarb infusion after being given normal saline. The patient was seen by nephrology. Renal function is improving and the patient is producing adequate amount of urine output. Oxygenation is still impaired and the patient on 10 L of oxygen by nasal cannula. She has crackling and there is still consideration of Covid 19 infection. Review of Systems General appearance: alert, in no apparent distress Head exam: Present: atraumatic, normocephalic Eye exam: Present: normal appearance, PERRL, EOMI. Absent: nystagmus ENT exam: Present: mucous membranes dry Neck exam: Present: normal inspection. Absent: tenderness, meningismus Respiratory exam: Present: normal lung sounds bilaterally Cardiovascular Exam: Present: regular rate, normal rhythm GI/Abdominal exam: Present: soft. Absent: tenderness Extremities exam: Present: normal inspection Neurological exam: Present: alert, oriented X3, CN II-XII intact, other (Occasionally needs to be redirected or re asked questions). Absent: motor sensory deficit Psychiatric exam: Present: normal affect, normal mood Skin exam: Present: normal color Past Medical History Past Medical History: Hypertension, Rheumatoid Arthritis (RA) History of Any Multi-Drug Resistant Organisms: None Reported Past Surgical History: Hysterectomy, Joint Replacement, Tonsillectomy Past Psychological History: No Psychological Hx Reported Smoking Status: Former smoker Past Alcohol Use History: None Reported Past Drug Use History: None Reported Medications and Allergies Home Medications Medication Instructions Recorded Confirmed Type Carisoprodol [Soma] 350 mg PO TID 09/03/15 08/26/20 History DULoxetine HCL [Cymbalta] 60 mg PO DAILY 09/03/15 08/26/20 History Enalapril [Vasotec] 10 mg PO DAILY 09/03/15 08/26/20 History Furosemide [Lasix] 40 mg PO DAILY 09/03/15 08/26/20 History Hydroxychloroquine Sulfate 200 mg PO DAILY 09/03/15 08/26/20 History [Plaquenil] Hydrocodone/Acetaminophen [[place] 1 tab PO Q4H PRN 05/01/19 08/26/20 History 10-325] Methotrexate Sod 25mg/Ml [place] 15 mg SQ Q7D 05/01/19 08/26/20 History Morphine Sulfate [Ms Contin] 30 mg PO Q12HR PRN 05/01/19 08/26/20 History busPIRone HCl [Buspar] 10 mg PO BID 05/01/19 08/26/20 History Fluticasone Nasal [place] [Flonase 2 spr EA NOSTRIL DAILY 08/26/20 08/26/20 Histo ry Nasal [place]] Sulfamethoxazole/Trimethoprim 1 tab PO BID 08/26/20 08/26/20 History [Bactrim DS 800-160 mg] Allergies Allergy/AdvReac Type Severity Reaction Status Date / Time adalimumab [From Humira] Allergy Rash/Hives Verified 08/26/20 16:55 cephalexin monohydrate Allergy Rash/Hives Verified 08/26/20 16:55 [From Keflex] meperidine HCl [From Demerol] AdvReac Nausea & Verified 08/26/20 16:55 Vomiting TB Med Allergy Unknown Uncoded 08/26/20 15:07 Physical Exam Vitals: Vital Signs Temp Pulse Pulse Resp BP BP Pulse Ox 08/27/20 10:36 98.6 F 97 16 128/66 93 L 08/27/20 08:00 16 08/27/20 06:00 97.8 F 93 109/57 93 L 08/27/20 02:50 98.6 F 103 H 20 119/63 95 08/26/20 20:33 98.5 F 20 101/57 91 L 08/26/20 20:00 91 L 08/26/20 19:11 99.5 F 98 22 104/58 96 08/26/20 18:15 91 22 147/75 93 L 08/26/20 17:57 18 08/26/20 17:42 93 20 107/66 90 L 08/26/20 17:10 90 20 107/66 89 L 08/26/20 16:21 90 20 118/59 90 L 08/26/20 16:00 90 L 08/26/20 15:30 97 20 94/63 87 L 08/26/20 14:58 98.8 F 97 24 108/51 94 L Intake and Output 08/26/20 08/27/20 08/27/20 22:59 06:59 14:59 Output Total 1000 Balance -1000 Output: Urine 1000 Other: Voiding Method Indwelling Catheter Indwelling Catheter General appearance: alert, in no apparent distress Head exam: Present: atraumatic, normocephalic Eye exam: Present: normal appearance, PERRL, EOMI. Absent: nystagmus ENT exam: Present: mucous membranes dry Neck exam: Present: normal inspection. Absent: tenderness, meningismus Respiratory exam: Present: normal lung sounds bilaterally, there is scattered rhonchi and scattered expiratory wheezes heard throughout the lung bases bilaterally Cardiovascular Exam: Present: regular rate, normal rhythm GI/Abdominal exam: Present: soft. Absent: tenderness Extremities exam: Present: normal inspection Neurological exam: Present: alert, oriented X3, CN II-XII intact, other (Occasionally needs to be redirected or re asked questions). Absent: motor sensory deficit Psychiatric exam: Present: normal affect, normal mood Skin exam: Present: normal color Results - Laboratory Findings CBC and BMP: 08/26/20 15:35 08/27/20 06:05 ABG ABG pH 7.25 (7.35-7.45) L 08/26/20 16:28 ABG pCO2 31 mmHg (35-45) L 08/26/20 16:28 ABG pO2 69 mmHg (83-108) L 08/26/20 16:28 ABG O2 Saturation 89.0 % (94-97) L 08/26/20 16:28 PT/INR, D-dimer PT 10.3 sec (9.0-12.0) 08/26/20 15:35 INR 1.0 (<1.2) 08/26/20 15:35 Abnormal lab findings: Abnormal Labs 08/26/20 08/26/20 08/26/20 15:35 15:35 15:35 WBC 36.1 H RBC 3.34 L Hgb 10.6 L Hct 32.3 L Plt Count 566 H Neutrophils # (Manual) 35.00 H Lymphocytes # (Manual) 0.36 L APTT 21.5 L ABG pH ABG pCO2 ABG pO2 ABG HCO3 ABG Total CO2 ABG O2 Saturation VBG pH VBG pCO2 VBG HCO3 Sodium Potassium Chloride Carbon Dioxide BUN Creatinine Glucose POC Glucose (mg/dL) Plasma Lactic Acid [place] Calcium Magnesium AST Ammonia Urine Appearance Cloudy H Urine Protein 1+ H Urine Blood Small H Urine Bilirubin 1+ H Urine Bacteria Rare H Hyaline Casts 39 H Urine Mucus Rare H Urine Opiates Screen Detected H 08/26/20 08/26/20 08/26/20 15:35 15:35 15:59 WBC RBC Hgb Hct Plt Count Neutrophils # (Manual) Lymphocytes # (Manual) APTT ABG pH ABG pCO2 ABG pO2 ABG HCO3 ABG Total CO2 ABG O2 Saturation VBG pH VBG pCO2 VBG HCO3 Sodium 135 L Potassium 5.3 H Chloride Carbon Dioxide 12 L BUN 75 H Creatinine 6.54 H Glucose 115 H POC Glucose (mg/dL) 117 H Plasma Lactic Acid [place] Calcium 8.3 L Magnesium AST 40 H Ammonia 30 H Urine Appearance Urine Protein Urine Blood Urine Bilirubin Urine Bacteria Hyaline Casts Urine Mucus Urine Opiates Screen 08/26/20 08/26/20 08/27/20 16:00 16:28 06:05 WBC RBC Hgb Hct Plt Count Neutrophils # (Manual) Lymphocytes # (Manual) APTT ABG pH 7.25 L ABG pCO2 31 L ABG pO2 69 L ABG HCO3 13 L ABG Total CO2 14 L ABG O2 Saturation 89.0 L VBG pH 7.21 L VBG pCO2 36 L VBG HCO3 14 L Sodium 136 L Potassium 5.2 H Chloride 110 H Carbon Dioxide 14 L BUN 68 H Creatinine 3.95 H Glucose 124 H POC Glucose (mg/dL) Plasma Lactic Acid [place] Calcium Magnesium 2.7 H AST Ammonia Urine Appearance Urine Protein Urine Blood Urine Bilirubin Urine Bacteria Hyaline Casts Urine Mucus Urine Opiates Screen 08/27/20 11:15 WBC RBC Hgb Hct Plt Count Neutrophils # (Manual) Lymphocytes # (Manual) APTT ABG pH ABG pCO2 ABG pO2 ABG HCO3 ABG Total CO2 ABG O2 Saturation VBG pH VBG pCO2 VBG HCO3 Sodium Potassium Chloride Carbon Dioxide BUN Creatinine Glucose POC Glucose (mg/dL) Plasma Lactic Acid [place] 0.6 L Calcium Magnesium AST Ammonia Urine Appearance Urine Protein Urine Blood Urine Bilirubin Urine Bacteria Hyaline Casts Urine Mucus Urine Opiates Screen - Diagnostic Findings Chest x-ray: image reviewed Assessment and Plan Plan: 1 altered mental status. In addition the patient has a component of metabolic encephalopathy secondary to acute kidney injury/renal failure. 2 acute kidney injury , with secondary metabolic acidosis 3 acute hypoxic respiratory failure with bilateral pulmonary infiltrates involving the lung bases, consider underlying aspiration. The patient is c urrently on 10 L O2 by nasal cannula, her Covid 19 testing was negative, he had nevertheless, there is still a high suspicion and I will suggest repeating the study. 4 GI bleed is suspected and the patient some coffee-ground emesis and the patient is considered to have an underlying upper GI bleeding 5 Arthritis 6 hypertension 7 depression 8 acute leukocytosis Plan Repeat Covid 19 testing by PCR Check COVID 19 antibodies IV fluids, icarb infusion so replaced underlying bicarb deficit Oxygen 10 L per minute nasal cannula Obtain blood culture Continue current antibiotic coverage with Levaquin Nephrology consultation monitor renal function Monitor electrolytes Ultrasound of the kidney was noted Noncontrast CAT scan of the chest We'll continue to follow
--- NOTE | 2020-08-27 14:22 | CT ---
EXAMINATION TYPE: CT neck chest without con DATE OF EXAM: 08/27/2020 COMPARISON: Chest x-ray 08/27/2020 HISTORY: SOB, loss of voice, covid CT DLP: 432.1 mGycm Automated exposure control for dose reduction was used. FINDINGS: Lack of contrast could compromise sensitivity. Airspace disease is present at the lung bases, no pleural or pericardial effusion. Dental amalgam causes streak artifact. Airway is patent. No endobronchial lesion seen. Borderline enl arged node present at the aorticopulmonary window level. There are some prevascular nodes which are s ubcentimeter size. There are extensive coronary artery calcifications present, heart is enlarged. There is a hiatal david ia present, thickening of the distal esophagus is indeterminate. No evident hilar, cervical, supracla vicular adenopathy. Salivary glands are within normal limits. Atheromatous changes are present within the carotid bifurcations. Thyroid gland shows homogenous density. There is a manubrial fracture whic h is not fused. Anterior rib fracture on the left is present at the fourth rib and likely the anterio r third rib which are nondisplaced, possible fracture healing. IMPRESSION: NONCONTRAST EXAM MAY LIMIT SENSITIVITY. CORRELATE FOR POSSIBLE ESOPHAGITIS, THERE IS A HIATAL HERNIA. CORRELATE FOR PNEUMONIA. CORONARY ARTERY DISEASE AND CARDIOMEGALY. 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
--- NOTE | 2020-08-27 15:38 | P.PN ---
Subjective Progress Note Date: 08/27/20 Patient's 69-year-old female came in with her to the ER with compensative confusion. Patient is able to provide me history patient knows year and where she is but not appropriate patient denied any fever chills patient denied any Dysuria. Patient does answer questions so the mother in appropriate. Patient does have constricted pupils patient was given a dose of Marcaine with the improvement in pupillary constriction patient is bit more awake still confused. Patient is found to have a severe metabolic acidosis and anion gap lactic acid is being obtained patient has white blood cell count of 36,000 doesn't have any fevers chest x-ray showed infiltrate in the posterior lung hurley possibly of aspiration patient is ALLERGIC to cephalosporins because of which patient was started on levofloxacin. Patient baseline creatinine is around 1.2 and patient is found to have creatinine was 6.5 ultrasound of the kidney will be obtained nephrology was consulted patient had coffee-ground emesis possibly of upper GI bleed, not gastroenterology will be consulted and patient was started on Protonix. 08/27/2020 Patient is seen and evaluated and follow-up continues to be confused. Multiple medical consultations including GI, nephrology, and pulmonary following. Patient currently continues to be dyspneic and requiring 11 L of oxygen via nasal cannula. Patient's initial Covid testing was negative and pulmonary following and there is high suspicion of Covid and repeat studies have been ordered and pending. Patient is maintained on IV bicarb and will continue. Patient continues with Levaquin. Kidney functions improved today and creatinine is 3.95. Lactic acid is also improved and is currently 0.6. No reports of chest pain or palpitations noted. No further reports of any GI bleeding noted. Will repeat a.m. labs and continue to monitor closely. review of systems: Unable to obtain as patient continues to be confused. Objective - Vital Signs Vital signs: Vital Signs Temp 98.6 F 08/27/20 10:36 Pulse 97 08/27/20 10:36 Resp 16 08/27/20 10:36 BP 128/66 08/27/20 10:36 Pulse Ox 93 L 08/27/20 10:36 Intake & Output 08/26/20 08/27/20 08/27/20 18:59 06:59 18:59 Output Total 1000 Balance -1000 Weight 54.431 kg Output: Urine 1000 Other: Voiding Method Indwelling Catheter Indwelling Catheter - Exam GENERAL: The patient is pleasantly confused oriented 1-2, not in any acute distress. Well developed, well nourished. HEENT: Restricted pupils nonreactive to light. EOMI. No scleral icterus. No conjunctival pallor. Normocephalic, atraumatic. No pharyngeal erythema. No thyromegaly. CARDIOVASCULAR: S1 and S2 present. No murmurs, rubs, or gallops. PULMONARY: Chest is clear to auscultation, no wheezing or crackles. ABDOMEN: Soft, nontender, nondistended, normoactive bowel sounds. No palpable organomegaly. MUSCULOSKELETAL: No joint swelling or deformity. EXTREMITIES: No cyanosis, clubbing, or pedal edema. NEUROLOGICAL: All 4 limbs doesn't appear to have any focal deficits SKIN: No rashes. - Labs CBC & Chem 7: 08/26/20 15:35 08/27/20 06:05 Labs: Abnormal Lab Results - Last 24 Hours (Table) 08/26/20 08/26/20 08/26/20 Range/Units 15:35 15:35 15:35 WBC 36.1 H (3.8-10.6) k/uL RBC 3.34 L (3.80-5.40) m/uL Hgb 10.6 L (11.4-16.0) gm/dL Hct 32.3 L (34.0-46.0) % Plt Count 566 H (150-450) k/uL Neutrophils # (Manual) 35.00 H (1.3-7.7) k/uL Lymphocytes # (Manual) 0.36 L (1.0-4.8) k/uL APTT 21.5 L (22.0-30.0) sec ABG pH (7.35-7.45) ABG pCO2 (35-45) mmHg ABG pO2 (83-108) mmHg ABG HCO3 (21-25) mmol/L ABG Total CO2 (19-24) mmol/L ABG O2 Saturation (94-97) % VBG pH (7.31-7.41) VBG pCO2 (37-51) mmHg VBG HCO3 (24-28) mmol/L Sodium (137-145) mmol/L Potassium (3.5-5.1) mmol/L Chloride (98-107) mmol/L Carbon Dioxide (22-30) mmol/L BUN (7-17) mg/dL Creatinine (0.52-1.04) mg/dL Glucose (74-99) mg/dL POC Glucose (mg/dL) (75-99) mg/dL Calcium (8.4-10.2) mg/dL Magnesium (1.6-2.3) mg/dL AST (14-36) U/L Ammonia (<30) umol/L Urine Appearance Cloudy H (Clear) Urine Protein 1+ H (Negative) Urine Blood Small H (Negative) Urine Bilirubin 1+ H (Negative) Urine Bacteria Rare H (None) /hpf Hyaline Casts 39 H (0-2) /lpf Urine Mucus Rare H (None) /hpf Urine Opiates Screen Detected H (NotDetected) 08/26/20 08/26/20 08/26/20 Range/Units 15:35 15:35 15:59 WBC (3.8-10.6) k/uL RBC (3.80-5.40) m/uL Hgb (11.4-16.0) gm/dL Hct (34.0-46.0) % Plt Count (150-450) k/uL Neutrophils # (Manual) (1.3-7.7) k/uL Lymphocytes # (Manual) (1.0-4.8) k/uL APTT (22.0-30.0) sec ABG pH (7.35-7.45) ABG pCO2 (35-45) mmHg ABG pO2 (83-108) mmHg ABG HCO3 (21-25) mmol/L ABG Total CO2 (19-24) mmol/L ABG O2 Saturation (94-97) % VBG pH (7.31-7.41) VBG pCO2 (37-51) mmHg VBG HCO3 (24-28) mmol/L Sodium 135 L (137-145) mmol/L Potassium 5.3 H (3.5-5.1) mmol/L Chloride (98-107) mmol/L Carbon Dioxide 12 L (22-30) mmol/L BUN 75 H (7-17) mg/dL Creatinine 6.54 H (0.52-1.04) mg/dL Glucose 115 H (74-99) mg/dL POC Glucose (mg/dL) 117 H (75-99) mg/dL Calcium 8.3 L (8.4-10.2) mg/dL Magnesium (1.6-2.3) mg/dL AST 40 H (14-36) U/L Ammonia 30 H (<30) umol/L Urine Appearance (Clear) Urine Protein (Negative) Urine Blood (Negative) Urine Bilirubin (Negative) Urine Bacteria (None) /hpf Hyaline Casts (0-2) /lpf Urine Mucus (None) /hpf Urine Opiates Screen (NotDetected) 08/26/20 08/26/20 08/27/20 Range/Units 16:00 16:28 06:05 WBC (3.8-10.6) k/uL RBC (3.80-5.40) m/uL Hgb (11.4-16.0) gm/dL Hct (34.0-46.0) % Plt Count (150-450) k/uL Neutrophils # (Manual) (1.3-7.7) k/uL Lymphocytes # (Manual) (1.0-4.8) k/uL APTT (22.0-30.0) sec ABG pH 7.25 L (7.35-7.45) ABG pCO2 31 L (35-45) mmHg ABG pO2 69 L (83-108) mmHg ABG HCO3 13 L (21-25) mmol/L ABG Total CO2 14 L (19-24) mmol/L ABG O2 Saturation 89.0 L (94-97) % VBG pH 7.21 L (7.31-7.41) VBG pCO2 36 L (37-51) mmHg VBG HCO3 14 L (24-28) mmol/L Sodium 136 L (137-145) mmol/L Potassium 5.2 H (3.5-5.1) mmol/L Chloride 110 H (98-107) mmol/L Carbon Dioxide 14 L (22-30) mmol/L BUN 68 H (7-17) mg/dL Creatinine 3.95 H (0.52-1.04) mg/dL Glucose 124 H (74-99) mg/dL POC Glucose (mg/dL) (75-99) mg/dL Calcium (8.4-10.2) mg/dL Magnesium 2.7 H (1.6-2.3) mg/dL AST (14-36) U/L Ammonia (<30) umol/L Urine Appearance (Clear) Urine Protein (Negative) Urine Blood (Negative) Urine Bilirubin (Negative) Urine Bacteria (None) /hpf Hyaline Casts (0-2) /lpf Urine Mucus (None) /hpf Urine Opiates Screen (NotDetected) Assessment and Plan Assessment: -possible aspiration pneumonia for which patient was started on levofloxacin -Hyperkalemia due to renal failure -Leukocytosis -Altered mental status, toxic encephalopathy probably because of "opiate overdose, patient continues on sodium bicarb. Patient remains confused and agitated. We will use Haldol for agitation. -Acute upper GI bleed secondary to possible gastritis, continue IV Protonix and Zofran as needed for nausea and GI following -Anion gap metabolic acidosis probably lactic acidosis which is improved and patient is maintained on sodium bicarb drip with no clear evidence of sepsis at this time -Acute renal failure on chronic kidney disease stage II acute renal failure secondary to prerenal azotemia maybe even acute tubular necrosis , continue with indwelling Marie catheter. ultrasound of the kidneys showing a slightly small left kidney with no evidence of hydronephrosis noted -Hypertension -Patient appears to have history of rheumatoid arthritis given her medication list -Depression Plan: Continue with current medications and IV antibiotics. Patient is maintained on sodium bicarb and will continue. Nephrology following. Pulmonary also following and patient is requiring 11 L of oxygen high flow and continues to be dyspneic. Repeat Covid testing and PCR and antibodies have been ordered and pending. Patient continues to be confused. Will repeat a.m. labs and continue to monitor closely.
--- NOTE | 2020-08-27 16:40 | CONS ---
CONSULTATION DATE OF DICTATION: 08/27/2020 REASON FOR CONSULTATION: Upper GI bleed and anemia. HISTORY OF PRESENT ILLNESS: The patient is a 69-year-old pleasant white female who presented to the emergency room yesterday with altered mental status, confusion and some shortness of breath. Apparently she was wandering in her apartment, and some of her neighbors brought her to the emergency room. In the ER she had an episode of coffee-ground emesis and hence we are consulted for an upper GI bleed. The patient is much more awake today but still continues to remain confused. She denies any abdominal pain. No further episodes of nausea or vomiting. She denies any rectal bleeding or melena. She does complain of some shortness of breath and hoarse voice. In the ER she did have a chest x-ray that showed pulmonary infiltrates, and the possibility of aspiration pneumonia is being considered; presently on broad-spectrum antibiotics. Initial labs showed a hemoglobin of 10.5 g/dL. PAST MEDICAL HISTORY: Significant for hypertension, history of rheumatoid arthritis, anxiety, depression, allergies. MEDICATIONS: Medications at home include Soma, Cymbalta, Vasotec, Lasix, Plaquenil, [place], methotrexate, MS Contin, BuSpar, Flonase, Bactrim. ALLERGIES: HUMIRA, KEFLEX, DEMEROL. SOCIAL HISTORY: Former smoker. No alcohol use. PAST SURGICAL HISTORY: Hysterectomy, tonsillectomy and some joint replacement. REVIEW OF SYSTEMS: CARDIOPULMONARY: She has some shortness of breath but no chest pain. GENITOURINARY: No dysuria or hematuria. MUSCULOSKELETAL: Unremarkable. SKIN: Unremarkable. ENDOCRINE: Unremarkable. PSYCHIATRIC: History of anxiety, depression. NEUROLOGY: Slightly confused. ENT/VISION: Unremarkable. CONSTITUTIONAL: No recent weight loss. No fever, chills, night sweats. PHYSICAL EXAMINATION: She appears comfortable. No apparent distress. VITAL SIGNS: Stable. Blood pressure is 128/66, pulse rate 97, temperature 98.6. HEENT examination unremarkable. Conjunctivae pink. Sclerae anicteric. Oral cavity no lesions. NECK: No JVD or lymph node enlargement. CHEST: Clear to auscultation. HEART: Regular rate and rhythm. ABDOMEN: Soft. It was non-tender, non-distended. Bowel sounds are positive. No organomegaly. EXTREMITIES: No pedal edema. SKIN: No rashes. NEUROLOGIC: She is alert to name and place but not to time. LABS: Labs from yesterday showed WBC 36.1, hemoglobin 10.6, platelets 566. PT 10.3, INR 1. BUN is 75, creatinine 6.54. Sodium 135, potassium 5.3, chloride 102, CO2 12. Ammonia level is 30. AST and ALT are 40 and 17, respectively. T-bilirubin and alkaline phosphatase are within normal limits. Coronavirus PCR is negative. IMPRESSION: 1. Coffee-ground emesis x1 in the emergency room yesterday. Hemoglobin at 10.6 g/dL. No further episodes of bleeding since being in the hospital. Presently on Protonix 40 mg daily. 2. Altered mental status. 3. Acute kidney injury with elevated BUN and creatinine. 4. Shortness of breath and chest x-ray showing bilateral pulmonary infiltrates suspicious for pneumonia, possible aspiration. Presently on high-flow nasal cannula at 10 L. COVID-19 was negative. 5. History of rheumatoid arthritis, on methotrexate and Plaquenil. 6. History of anxiety and depression. RECOMMENDATIONS: 1. Continue with broad-spectrum antibiotics. 2. Continue with Protonix 40 mg daily. 3. Monitor CBC on a daily basis. 4. No plans for any endoscopic intervention at the present time, given her underlying cardiopulmonary status. 5. Will follow with you closely. Thank you for this consultation. MMMINNIEL / IJN: [id number] /
[2020-08-27] MEDS ORDERED: AZITHROMYCIN 500 MG TAB PO SCH (17:42)
[2020-08-27] MEDS ORDERED: LEVOFLOXACIN 500MG-D5W PMX 500 MG in DEXTROSE/WATER 1 100ML.BAG IVPB SCH (18:00)
[2020-08-28 07:05] LABS: African American GFR (CKD) 48 (>60 ml/min/1.73 sqM); Anion Gap 8 mmol/L; Blood Urea Nitrogen 38 mg/dL (7-17); Calcium 8.9 mg/dL (8.4-10.2); Carbon Dioxide 22 mmol/L (22-30); Chloride 110 mmol/L (98-107); Glucose 116 mg/dL (74-99); Magnesium 2.3 mg/dL (1.6-2.3); Non-African American GFR(CKD) 41 (>60 ml/min/1.73 sqM); Potassium 4.9 mmol/L (3.5-5.1); Sodium 140 mmol/L (137-145)
[2020-08-28] MEDS: busPIRone HCl 10 MG TAB PO SCH ×2 (08:28→20:18)
[2020-08-28] MEDS: PANTOPRAZOLE 40 MG/10 ML VIAL IVP SCH ×2 (08:29→20:18)
[2020-08-28] MEDS: DULoxetine HCL 60 MG CAPSULE.DR PO SCH (08:29)
[2020-08-28] MEDS: HEPARIN SODIUM,PORCINE/PF 5,000 UNIT/0.5 ML SYRINGE SQ SCH ×2 (08:30→20:18)
[2020-08-28] MEDS ORDERED: LEVOFLOXACIN 250MG-D5W PMX 250 MG in DEXTROSE/WATER 1 50ML.BAG IVPB SCH (09:00)
[2020-08-28] MEDS: FLUTICASONE 50MCG/SPRAY NASAL 16GM EA NOSTRIL SCH (09:10)
[2020-08-28] MEDS: DEXTROSE 5% IN WATER 1,000 ML with SODIUM BICARB (1 MEQ/ML) 150 ML IV SCH (09:10)
[2020-08-28 09:38] LABS: HCT 31.5 % (34.0-46.0); HGB 9.8 gm/dL (11.4-16.0); MCH 30.7 pg (25.0-35.0); MCHC 31.1 g/dL (31.0-37.0); MCV 98.9 fL (80.0-100.0); Macrocytosis Slight; Mean Platelet Volume 7.1; Platelet Count 511 k/uL (150-450); RBC 3.18 m/uL (3.80-5.40); RDW 15.6 % (11.5-15.5); WBC 17.7 k/uL (3.8-10.6)
--- NOTE | 2020-08-28 11:07 | P.PN ---
Subjective Patient is seen in follow-up for acute kidney injury. Renal function continues to improve. Acidosis also improved. Currently on bicarb drip. Not a reliable historian. Nonoliguric. Hemodynamically stable. Vital signs are stable. General: The patient appeared well nourished and normally developed. HEENT: Head exam is unremarkable. Neck is without jugular venous distension. LUNGS: Breath sounds decreased. HEART: Rate and Rhythm are regular. ABDOMEN: Soft, nontender. EXTREMITITES: No edema. Objective - Vital Signs Vital signs: Vital Signs Temp 98.5 F 08/28/20 08:00 Pulse 101 H 08/28/20 08:00 Resp 18 08/28/20 08:00 BP 139/80 08/28/20 08:00 Pulse Ox 93 L 08/28/20 08:00 Intake & Output 08/27/20 08/28/20 08/28/20 18:59 06:59 18:59 Intake Total 480 1500 Output Total 2100 Balance 480 -600 Intake: Intake, IV Titration 180 600 Amount Dextrose 5% in Water 1, 600 000 ml @ 100 mls/hr IV . [id number] JINNY with Sodium Bicarb (1 Meq/ml) 150 ml Rx#:[id number] Levofloxacin 250Mg-D5w 50 Pmx 250 mg In Dextrose/ Water 1 50ml.bag @ 50 mls /hr IVPB Q48H [facility] Rx#: [id number] Sodium Chloride 0.9% 1, 130 000 ml @ 130 mls/hr IV . Q7H42M [facility] Rx#:[id number] Oral 300 900 Output: Urine 2100 Other: Voiding Method Indwelling Catheter Indwelling Catheter Indwelling Catheter - Labs CBC & Chem 7: 08/28/20 06:06 08/28/20 06:06 Labs: Abnormal Lab Results - Last 24 Hours (Table) 08/27/20 08/28/20 08/28/20 Range/Units 11:15 06:06 06:06 WBC 17.7 H (3.8-10.6) k/uL RBC 3.18 L (3.80-5.40) m/uL Hgb 9.8 L (11.4-16.0) gm/dL Hct 31.5 L (34.0-46.0) % RDW 15.6 H (11.5-15.5) % Plt Count 511 H (150-450) k/uL Chloride 110 H (98-107) mmol/L BUN 38 H (7-17) mg/dL Creatinine 1.33 H (0.52-1.04) mg/dL Glucose 116 H (74-99) mg/dL Plasma Lactic Acid Juan Francisco 0.6 L (0.7-2.0) mmol/L Microbiology - Last 24 Hours (Table) 08/26/20 16:37 Blood Culture - Preliminary Blood No Growth after 24 hours Assessment and Plan Plan: Assessment: 1. Acute kidney injury mostly prerenal improving with IV hydration. Creatinine 6.54 on admission and is 1.33 this morning. Creatinine was 1.12 in April 2019. No hydronephrosis noted on kidney ultrasound. Left kidney noted to be small in size. 2. Mild hyperkalemia secondary to acute kidney injury, enalapril and acidosis. ? Bactrim. Resolved. 3. Metabolic acidosis secondary to acute kidney injury. Improved with bicarbonate drip. 4. Acute hypoxia respiratory failure secondary to pneumonia currently on high flow nasal cannula. 5. Benign hypertension. Controlled. 6. Altered mental status. Possibly from hypoxia. Urine drug screen positive for opiates. She did receive Narcan. Plan: Stop bicarb drip. Start normal saline at 75 mL an hour. Maintain Marie catheter for now. Strict is and os. Avoid nephrotoxins. Repeat electrolytes in the morning. Wean FiO2. Okay to remove Marie catheter and to monitor serial postvoid residuals.
--- NOTE | 2020-08-28 14:03 | P.PN ---
Subjective Progress Note Date: 08/28/20 Principal diagnosis: Coffee-ground emesis A 69-year-old confused white female who presented to the emergency room with altered mental status, confusion and signs of shortness of breath. While in the emergency room she had an episode of coffee-ground emesis and hence gastroenter ology was consulted for possibility of an upper GI bleed. Today the patient seems more alert and answering questions more appropriately, however still remains confused. She's had no further episodes of coffee-ground emesis since she was admitted. She denies any black or maroon colored stool. Her hemoglobin is stable at 9.8. She remains on broad-spectrum antibiotics. Objective - Vital Signs Vital signs: Vital Signs Temp 98.5 F 08/28/20 05:35 Pulse 77 08/28/20 05:35 Resp 20 08/28/20 05:35 BP 144/70 08/28/20 05:35 Pulse Ox 93 L 08/28/20 05:35 Intake & Output 08/27/20 08/28/20 08/28/20 18:59 06:59 18:59 Intake Total 480 1500 Output Total 2100 Balance 480 -600 Intake: Intake, IV Titration 180 600 Amount Dextrose 5% in Water 1, 600 000 ml @ 100 mls/hr IV . [id number] JINNY with Sodium Bicarb (1 Meq/ml) 150 ml Rx#:[id number] Levofloxacin 250Mg-D5w 50 Pmx 250 mg In Dextrose/ Water 1 50ml.bag @ 50 mls /hr IVPB Q48H [facility] Rx#: [id number] Sodium Chloride 0.9% 1, 130 000 ml @ 130 mls/hr IV . Q7H42M [facility] Rx#:[id number] Oral 300 900 Output: Urine 2100 Other: Voiding Method Indwelling Catheter Indwelling Catheter - Exam General appearance: The patient is alert, confused, appears in no acute distr ess. HET: Head is normocephalic and atraumatic. Conjunctiva pink. Sclera anicteric. Neck: Supple without lymphadenopathy. Abdomen: Soft, nontender, nondistended with bowel sounds. No guarding or rigidity. Extremities: Normal skin color and turgor. No pedal edema Skin: No rashes, no jaundice Neurological: No focal deficits. Alert and oriented 2. - Labs CBC & Chem 7: 08/28/20 06:06 08/28/20 06:06 Labs: Abnormal Lab Results - Last 24 Hours (Table) 08/27/20 08/28/20 Range/Units 11:15 06:06 Chloride 110 H (98-107) mmol/L BUN 38 H (7-17) mg/dL Creatinine 1.33 H (0.52-1.04) mg/dL Glucose 116 H (74-99) mg/dL Plasma Lactic Acid Juan [place] 0.6 L (0.7-2.0) mmol/L Microbiology - Last 24 Hours (Table) 08/26/20 16:37 Blood Culture - Preliminary Blood No Growth after 24 hours Assessment and Plan (1) Coffee ground emesis Narrative/Plan: This is a 69-year-old female who had one episode of coffee-ground emesis while in the emergency room on admission. She's had no further episodes of bleeding since her admission. She is presently on Protonix 40 mg daily. Current Visit: Yes Status: Acute Code(s): K92.0 - HEMATEMESIS SNOMED Code(s): 73230380 (2) Acute renal failure (ARF) Narrative/Plan: Patient has acute kidney injury with elevated BUN and creatinine for which nephrology is following Current Visit: Yes Status: Acute Code(s): N17.9 - ACUTE KIDNEY FAILURE, UNSPECIFIED SNOMED Code(s): 06045496 (3) Pneumonia Narrative/Plan: Chest x-ray showing bilateral pulmonary infiltrates suspicious for pneumonia, possible aspiration. Covid-19 negative Current Visit: Yes Status: Acute Code(s): J18.9 - PNEUMONIA, UNSPECIFIED ORGANISM SNOMED Code(s): 611935884 (4) Altered mental status Current Visit: Yes Status: Acute Code(s): R41.82 - ALTERED MENTAL STATUS, UNSPECIFIED SNOMED Code(s): 094655465 Plan: 1. Continue with broad-spectrum antibiotic 2. Continue Protonix 40 mg daily 3. Monitor CBC daily 4. No plans for any endoscopic intervention at the present time given her underlying cardiopulmonary status. 5. Continue to monitor for signs and symptoms GI bleed Thank you for this consultation, we will continue to follow Dr. Mikal Steinberg I agree with the dictator's note, documented as a scribe by Sharona Hope.
[2020-08-28] MEDS: SODIUM CHLORIDE 0.9% 1,000 ML IV SCH (15:17)
--- NOTE | 2020-08-28 15:33 | P.PN ---
Subjective Progress Note Date: 08/28/20 Patient's 69-year-old female came in with her to the ER with compensative confusion. Patient is able to provide me history patient knows year and where she is but not appropriate patient denied any fever chills patient denied any Dysuria. Patient does answer questions so the mother in appropriate. Patient does have constricted pupils patient was given a dose of Marcaine with the improvement in pupillary constriction patient is bit more awake still confused. Patient is found to have a severe metabolic acidosis and anion gap lactic acid is being obtained patient has white blood cell count of 36,000 doesn't have any fevers chest x-ray showed infiltrate in the posterior lung hurley possibly of aspiration patient is ALLERGIC to cephalosporins because of which patient was started on levofloxacin. Patient baseline creatinine is around 1.2 and patient is found to have creatinine was 6.5 ultrasound of the kidney will be obtained nephrology was consulted patient had coffee-ground emesis possibly of upper GI bleed, not gastroenterology will be consulted and patient was started on Protonix. 08/27/2020 Patient is seen and evaluated and follow-up continues to be confused. Multiple medical consultations including GI, nephrology, and pulmonary following. Patient currently continues to be dyspneic and requiring 11 L of oxygen via nasal cannula. Patient's initial Covid testing was negative and pulmonary following and there is high suspicion of Covid and repeat studies have been ordered and pending. Patient is maintained on IV bicarb and will continue. Patient continues with Levaquin. Kidney functions improved today and creatinine is 3.95. Lactic acid is also improved and is currently 0.6. No reports of chest pain or palpitations noted. No further reports of any GI bleeding noted. Will repeat a.m. labs and continue to monitor closely. 08/28/2020 Patient is seen this morning continues to be confused although more verbal but conversation is scattered and patient is not able to stay on topic. Denies any worsening shortness of breath or difficulty in breathing although continues to be maintained on 10 L high flow. Serial antibody and repeat Covid testing are negative. Pulmonary and nephrology following along with GI. Patient denies any nausea or vomiting states she does not have much of an appetite and is not eating very much. Creatinine improved and is currently 1.33 with a BUN of 38 and sodium is 140 with a potassium of 4.9. White blood count is 17.7 and val ent is maintained on IV Levaquin and will continue, hemoglobin is 9.8 again with no active bleeding noted. Sodium bicarb was discontinued and patient is maintained on normal saline and will continue. Will repeat a.m. labs and continue to monitor closely. Review of systems: Constitutional: No reports of fatigue, fever, or chills, reports of being cold Cardiovascular: No reports of chest pain or palpitations Respiratory: No reports of shortness of breath or cough GI: No reports of nausea, vomiting, or diarrhea, reports no appetite : No reports of dysuria or retention, continued indwelling Marie catheter Neurovascular: No reports of weakness or numbness All medications have been reviewed Objective - Vital Signs Vital signs: Vital Signs Temp 98.5 F 08/28/20 05:35 Pulse 77 08/28/20 05:35 Resp 20 08/28/20 05:35 BP 144/70 08/28/20 05:35 Pulse Ox 93 L 08/28/20 05:35 Intake & Output 08/27/20 08/28/20 08/28/20 18:59 06:59 18:59 Intake Total 480 1500 Output Total 2100 Balance 480 -600 Intake: Intake, IV Titration 180 600 Amount Dextrose 5% in Water 1, 600 000 ml @ 100 mls/hr IV . [id number] JINNY with Sodium Bicarb (1 Meq/ml) 150 ml Rx#:[id number] Levofloxacin 250Mg-D5w 50 Pmx 250 mg In Dextrose/ Water 1 50ml.bag @ 50 mls /hr IVPB Q48H [facility] Rx#: [id number] Sodium Chloride 0.9% 1, 130 000 ml @ 130 mls/hr IV . Q7H42M [facility] Rx#:[id number] Oral 300 900 Output: Urine 2100 Other: Voiding Method Indwelling Catheter Indwelling Catheter - Exam GENERAL: The patient is pleasantly confused oriented 1-2, not in any acute distress. Well developed, well nourished. HEENT: Restricted pupils nonreactive to light. EOMI. No scleral icterus. No conjunctival pallor. Normocephalic, atraumatic. No pharyngeal erythema. No thyromegaly. CARDIOVASCULAR: S1 and S2 present. No murmurs, rubs, or gallops. PULMONARY: Chest is clear to auscultation, no wheezing or crackles. A few scattered rhonchi noted bilaterally ABDOMEN: Soft, nontender, nondistended, normoactive bowel sounds. No palpable organomegaly. MUSCULOSKELETAL: No joint swelling or deformity. EXTREMITIES: No cyanosis, clubbing, or pedal edema. NEUROLOGICAL: All 4 limbs doesn't appear to have any focal deficits SKIN: No rashes. - Labs CBC & Chem 7: 08/28/20 06:06 08/28/20 06:06 Labs: Abnormal Lab Results - Last 24 Hours (Table) 08/27/20 08/28/20 Range/Units 11:15 06:06 Chloride 110 H (98-107) mmol/L BUN 38 H (7-17) mg/dL Creatinine 1.33 H (0.52-1.04) mg/dL Glucose 116 H (74-99) mg/dL Plasma Lactic Acid Juan Francisco 0.6 L (0.7-2.0) mmol/L Microbiology - Last 24 Hours (Table) 08/26/20 16:37 Blood Culture - Preliminary Blood No Growth after 24 hours Assessment and Plan Assessment: -possible aspiration pneumonia for which patient was started on levofloxacin -Hyperkalemia due to renal failure, improving -Leukocytosis, trending down white blood count today is 17.7 -Altered mental status, toxic encephalopathy probably because of opiate overdose. Patient remains confused and agitated at times. We will use Haldol for agitation. -Acute upper GI bleed secondary to possible gastritis, continue IV Protonix and Zofran as needed for nausea and GI following, no further emesis or bleeding noted -Anion gap metabolic acidosis probably lactic acidosis which is improved with no clear evidence of sepsis at this time -Acute renal failure on chronic kidney disease stage II acute renal failure secondary to prerenal azotemia maybe even acute tubular necrosis , continue with indwelling Marie catheter. ultrasound of the kidneys showing a slightly small left kidney with no evidence of hydronephrosis noted -Hypertension -Patient appears to have history of rheumatoid arthritis given her medication list -Depression Plan: Continue with current medications and IV antibiotics. Patient is maintained on normal saline IV bicarb has been discontinued. Nephrology following. Pulmonary also following and patient is requiring 10 L of oxygen high flow and continues to be dyspneic. Repeat Covid testing and PCR and antibodies have been negative. Patient continues to be confused. Will repeat a.m. labs and continue to monitor closely.
--- NOTE | 2020-08-28 17:33 | P.PN ---
Subjective Progress Note Date: 08/28/20 69-year-old female presented to the ED with altered mental status. The patient was confused. The patient was found to be wandering around in [place] in her apartment.. The patient was able to answer questions upon frequent questionings. The patient's was complaining of some shortness of breath. E ssentially the history was limited and patient himself was very poor in her history providing ability. Pupils are constricted. She was found to have anion gap metabolic acidosis with elevated lactic acid level. White cell count was 36. Chest x-ray showed normal pulmonary infiltrates. Aspiration was considered and the patient was given Levaquin. The patient was also found to have an acute kidney injury in the creatinine was up to 6.5. He was 77 and the patient has anion gap metabolic acidosis with a serum bicarb of 12. The blood gas showed a pH of 7.25 with a pCO2 of 31 and pO2 of 69 and this was on FiO2 of 45%. The patient also had +1 bilirubin and +1 protein and her UA, negative for any infection, urine toxin was positive for opiates, the COVID 19 testing was negative. The patient was started on IV fluids and currently the patient is receiving normal saline at the rate of 130 mL an hour. The patient was given a dose of Levaquin in the emergency department. She was placed also on Levaquin. CAT scan of the brain showed mild patchy burden of chronic small vessel ischemic disease. No acute abnormalities noted. The ultrasound the kidneys showed no evidence of hydronephrosis. The patient is known to have RA and hypertension. The patient is currently on 10 L by nasal cannula to maintain saturation above 90%. Overnight, the patient was given IV fluids and the patient was also given bicarb infusion after being given normal saline. The patient was seen by nephrology. Renal function is improving and the patient is producing adequate amount of urine output. Oxygenation is still impaired and the patient on 10 L of oxygen by nasal cannula. She has crackling and there is still consideration of Covid 19 infection. On 08/28/2020 the patient is looking improved compared to yesterday. The patient is currently on 8 L of oxygen by nasal cannula. Her white cell count is improved. The patient is still on Levaquin. Computed tomography scan of the chest was done and showed some limited bibasilar pulmonary infiltrates. Overall CAT scan picture was limited due to lack of contrast. Otherwise, the patient is receiving IV fluids. The renal function continues to improve. The patient is producing urine output. Nephrology is on the case. The white cell count of 17.7 which is improved. Creatinine is down to 1.3. The SARS Cov2 d antibodies were negative and the rapid PCR was also negative. Computed tomography scan of the neck was also unremarkable. The blood culture is negative. Objective - Vital Signs Vital signs: Vital Signs Temp 98.5 F 08/28/20 13:58 Pulse 92 08/28/20 13:58 Resp 18 08/28/20 13:58 BP 147/73 08/28/20 13:58 Pulse Ox 94 L 08/28/20 13:58 Intake & Output 08/27/20 08/28/20 08/28/20 18:59 06:59 18:59 Intake Total 480 1500 Output Total 2100 Balance 480 -600 Intake: Intake, IV Titration 180 600 Amount Dextrose 5% in Water 1, 600 000 ml @ 100 mls/hr IV . [id number] JINNY with Sodium Bicarb (1 Meq/ml) 150 ml Rx#:[id number] Levofloxacin 250Mg-D5w 50 Pmx 250 mg In Dextrose/ Water 1 50ml.bag @ 50 mls /hr IVPB Q48H [facility] Rx#: [id number] Sodium Chloride 0.9% 1, 130 000 ml @ 130 mls/hr IV . Q7H42M [facility] Rx#:[id number] Oral 300 900 Output: Urine 2100 Other: Voiding Method Indwelling Catheter Indwelling Catheter Indwelling Catheter - Exam General appearance: alert, in no apparent distress Head exam: Present: atraumatic, normocephalic Eye exam: Present: normal appearance, PERRL, EOMI. Absent: nystagmus ENT exam: Present: mucous membranes dry Neck exam: Present: normal inspection. Absent: tenderness, meningismus Respiratory exam: Present: normal lung sounds bilaterally, there is scattered rhonchi and scattered expiratory wheezes heard throughout the lung bases bilaterally Cardiovascular Exam: Present: regular rate, normal rhythm GI/Abdominal exam: Present: soft. Absent: tenderness Extremities exam: Present: normal inspection Neurological exam: Present: alert, oriented X3, CN II-XII intact, other (Occasionally needs to be redirected or re asked questions). Absent: motor sensory deficit Psychiatric exam: Present: normal affect, normal mood Skin exam: Present: normal color - Labs CBC & Chem 7: 08/28/20 06:06 08/28/20 06:06 Labs: Abnormal Lab Results - Last 24 Hours (Table) 08/28/20 08/28/20 Range/Units 06:06 06:06 WBC 17.7 H (3.8-10.6) k/uL RBC 3.18 L (3.80-5.40) m/uL Hgb 9.8 L (11.4-16.0) gm/dL Hct 31.5 L (34.0-46.0) % RDW 15.6 H (11.5-15.5) % Plt Count 511 H (150-450) k/uL Chloride 110 H (98-107) mmol/L BUN 38 H (7-17) mg/dL Creatinine 1.33 H (0.52-1.04) mg/dL Glucose 116 H (74-99) mg/dL Microbiology - Last 24 Hours (Table) 08/26/20 16:37 Blood Culture - Preliminary Blood No Growth after 24 hours Assessment and Plan Plan: 1 altered mental status. In addition the patient has a component of metabolic encephalopathy secondary to acute kidney injury/renal failure. Clinically improving 2 acute kidney injury , with secondary metabolic acidosis , improving with adequate urine output and the creatinine is down to 1.3 3 acute hypoxic respiratory failure with bilateral pulmonary infiltrates involving the lung bases, consider underlying aspiration. this computed tomography scan also showing bilateral lower lobe pulmonary infiltrates. The patient is currently on 10 L by nasal cannula. The oxygenation in general is improved. The computed tomography scan is showing some lower lobe pulmonary infiltration. Patient is on Levaquin. 4 GI bleed is suspected and the patient some coffee-ground emesis and the patient is considered to have an underlying upper GI bleeding, stable hemoglobin 5 Arthritis 6 hypertension 7 depression 8 acute leukocytosis, improving Plan Covid 19 testing by PCR was negative COVID 19 antibodies was also negative IV fluids, icarb infusion so replaced underlying bicarb deficit Oxygen 10 L per minute nasal cannula white cell count is improving and the cultures are negative Continue current antibiotic coverage with Levaquin Nephrology consultation monitor renal function Monitor electrolytes Ultrasound of the kidney was noted Noncontrast CAT scan of the chest was noted We'll continue to follow
[2020-08-29] MEDS: SODIUM CHLORIDE 0.9% 1,000 ML IV SCH ×2 (00:05→17:00)
[2020-08-29 09:01] LABS: Basophils # (A) 0.1 k/uL (0-0.2); Basophils % (A) 0 %; Eosinophils # (A) 0.1 k/uL (0-0.7); Eosinophils % (A) 1 %; HCT 28.7 % (34.0-46.0); HGB 9.7 gm/dL (11.4-16.0); Lymphocytes # (A) 1.5 k/uL (1.0-4.8); Lymphocytes % (A) 9 %; MCH 32.3 pg (25.0-35.0); MCHC 33.7 g/dL (31.0-37.0); MCV 95.7 fL (80.0-100.0); Mean Platelet Volume 6.7; Monocytes # (A) 1.4 k/uL (0-1.0); Monocytes % (A) 8 %; Neutrophils # (A) 14.2 k/uL (1.3-7.7); Neutrophils % (A) 81 %; Platelet Count 433 k/uL (150-450); RDW 14.7 % (11.5-15.5); WBC 17.5 k/uL (3.8-10.6)
[2020-08-29] MEDS: busPIRone HCl 10 MG TAB PO SCH ×2 (09:12→19:29)
[2020-08-29] MEDS: PANTOPRAZOLE 40 MG/10 ML VIAL IVP SCH ×2 (09:12→19:29)
[2020-08-29] MEDS: HEPARIN SODIUM,PORCINE/PF 5,000 UNIT/0.5 ML SYRINGE SQ SCH ×2 (09:12→19:29)
[2020-08-29] MEDS: DULoxetine HCL 60 MG CAPSULE.DR PO SCH (09:12)
[2020-08-29] MEDS: LEVOFLOXACIN 250 MG TAB PO SCH (09:12)
[2020-08-29] MEDS: FLUTICASONE 50MCG/SPRAY NASAL 16GM EA NOSTRIL SCH (09:13)
--- NOTE | 2020-08-29 09:57 | P.PN ---
Subjective Progress Note Date: 08/29/20 Principal diagnosis: Coffee-ground emesis A 69-year-old confused white female who presented to the emergency room with altered mental status, confusion and signs of shortness of breath. While in the emergency room she had an episode of coffee-ground emesis and hence gastroenter ology was consulted for possibility of an upper GI bleed. The patient remains confused, cannot answer questions appropriately. Nursing is reporting that she's not had any further episodes of vomiting or coffee-ground emesis. She has not had any black or maroon-colored stools. Hemoglobin is stable at 9.7. Patient has a psychiatric consult pending evaluation. She denies any abdominal pain. Objective - Vital Signs Vital signs: Vital Signs Temp 98.4 F 08/29/20 05:37 Pulse 67 08/29/20 05:37 Resp 18 08/29/20 05:37 BP 152/73 08/29/20 05:37 Pulse Ox 94 L 08/29/20 05:37 Intake & Output 08/28/20 08/29/20 08/29/20 18:59 06:59 18:59 Intake Total 1100 Output Total 350 Balance 750 Intake: Intake, IV Titration 900 Amount Sodium Chloride 0.9% 1, 900 000 ml @ 75 mls/hr IV . [id number] [facility] Rx#:[id number] Oral 200 Output: Urine 350 Other: Voiding Method Indwelling Catheter Indwelling Catheter - Exam General appearance: The patient is alert, confused, appears in no acute di stress. HET: Head is normocephalic and atraumatic. Conjunctiva pink. Sclera anicteric. Neck: Supple without lymphadenopathy. Abdomen: Soft, nontender, nondistended with bowel sounds. No guarding or rigidity. Extremities: Normal skin color and turgor. No pedal edema Skin: No rashes, no jaundice Neurological: No focal deficits. Alert and oriented 2. - Labs CBC & Chem 7: 08/29/20 08:15 08/28/20 06:06 Labs: Abnormal Lab Results - Last 24 Hours (Table) 08/29/20 Range/Units 08:15 WBC 17.5 H (3.8-10.6) k/uL RBC 3.00 L (3.80-5.40) m/uL Hgb 9.7 L (11.4-16.0) gm/dL Hct 28.7 L (34.0-46.0) % Neutrophils # 14.2 H (1.3-7.7) k/uL Monocytes # 1.4 H (0-1.0) k/uL Microbiology - Last 24 Hours (Table) 08/26/20 16:37 Blood Culture - Preliminary Blood No Growth after 48 hours Assessment and Plan (1) Coffee ground emesis Narrative/Plan: This is a 69-year-old female who had one episode of coffee-ground emesis while in the emergency room on admission. She's had no further episodes of bleeding since her admission. She is presently on Protonix 40 mg daily. Continue Protonix 40 mg daily. Patient has had no further coffee-ground emesis, emesis, abdominal pain, melena. No plans for endoscopic evaluation at this time. Current Visit: Yes Status: Acute Code(s): K92.0 - HEMATEMESIS SNOMED Code(s): 71457277 (2) Acute renal failure (ARF) Narrative/Plan: Patient has acute kidney injury with elevated BUN and creatinine for which neph rology is following Current Visit: Yes Status: Acute Code(s): N17.9 - ACUTE KIDNEY FAILURE, UNSPECIFIED SNOMED Code(s): 63609325 (3) Pneumonia Narrative/Plan: Chest x-ray showing bilateral pulmonary infiltrates suspicious for pneumonia, possible aspiration. Covid-19 negative Current Visit: Yes Status: Acute Code(s): J18.9 - PNEUMONIA, UNSPECIFIED ORGANISM SNOMED Code(s): 715426237 (4) Altered mental status Current Visit: Yes Status: Acute Code(s): R41.82 - ALTERED MENTAL STATUS, UNSPECIFIED SNOMED Code(s): 017692074 Plan: 1. Continue with broad-spectrum antibiotic 2. Continue Protonix 40 mg daily 3. Monitor CBC daily 4. No plans for any endoscopic intervention at the present time given her underlying cardiopulmonary status and no signs or symptoms of GI bleed. 5. Continue to monitor for signs and symptoms GI bleed Thank you for this consultation, we will sign off at this time. Please do not hesitate to call us back with any concerns. Dr. Mikal Steinberg I agree with the dictator's note, documented as a scribe by Sharona Hope.
--- NOTE | 2020-08-29 10:59 | P.PN ---
Subjective Patient is seen in follow-up for acute kidney injury. Renal function continues to improve. Acidosis also improved. Maintained on normal saline. Not a reliable historian. Nonoliguric. Hemodynamically stable. Vital signs are stable. General: The patient appeared well nourished and normally developed. HEENT: Head exam is unremarkable. Neck is without jugular venous distension. LUNGS: Breath sounds decreased. HEART: Rate and Rhythm are regular. ABDOMEN: Soft, nontender. EXTREMITITES: No edema. Objective - Vital Signs Vital signs: Vital Signs Temp 98.5 F 08/29/20 10:13 Pulse 56 L 08/29/20 10:13 Resp 24 08/29/20 10:13 BP 153/65 08/29/20 10:13 Pulse Ox 96 08/29/20 10:13 Intake & Output 08/28/20 08/29/20 08/29/20 18:59 06:59 18:59 Intake Total 1100 Output Total 350 Balance 750 Intake: Intake, IV Titration 900 Amount Sodium Chloride 0.9% 1, 900 000 ml @ 75 mls/hr IV . R10H70M [facility] Rx#:[id number] Oral 200 Output: Urine 350 Other: Voiding Method Indwelling Catheter Indwelling Catheter - Labs CBC & Chem 7: 08/29/20 08:15 08/28/20 06:06 Labs: Abnormal Lab Results - Last 24 Hours (Table) 08/29/20 Range/Units 08:15 WBC 17.5 H (3.8-10.6) k/uL RBC 3.00 L (3.80-5.40) m/uL Hgb 9.7 L (11.4-16.0) gm/dL Hct 28.7 L (34.0-46.0) % Neutrophils # 14.2 H (1.3-7.7) k/uL Monocytes # 1.4 H (0-1.0) k/uL Microbiology - Last 24 Hours (Table) 08/26/20 16:37 Blood Culture - Preliminary Blood No Growth after 48 hours Assessment and Plan Plan: Assessment: 1. Acute kidney injury mostly prerenal improving with IV hydration. Creatinine 6.54 on admission and is 1.33 as of yesterday. Creatinine was 1.12 in April 2019. No hydronephrosis noted on kidney ultrasound. Left kidney noted to be small in size. 2. Mild hyperkalemia secondary to acute kidney injury, enalapril and acidosis. ? Bactrim. Resolved. 3. Metabolic acidosis secondary to acute kidney injury. Improved with bicarbonate drip. 4. Acute hypoxia respiratory failure secondary to pneumonia currently on high flow nasal cannula. 5. Benign hypertension. Controlled. 6. Altered mental status. Possibly from hypoxia. Urine drug screen positive for opiates. She did receive Narcan. Psychiatry consulted. 7. Anemia. Rule out iron deficiency. Plan: Maintain normal saline at 75 mL an hour. Maintain Marie catheter for now. Strict is and os. Avoid nephrotoxins. Repeat electrolytes in the morning. Wean FiO2. Marie catheter to be removed today. Monitor postvoid residuals to make sure no urinary retention. Morning labs pending. Check iron studies.
[2020-08-29 12:28] LABS: African American GFR (CKD) 88.4 (60.0-200.0); Anion Gap 12.1 mmol/L (4.00-12.00); Calcium 8.5 mg/dL (8.7-10.3); Carbon Dioxide 26.9 mmol/L (21.6-31.8); Magnesium 1.8 mg/dL (1.5-2.4); Non-African American GFR(CKD) 76.3 (60.0-200.0); Potassium 4.1 mmol/L (3.5-5.5)
[2020-08-29 13:01] LABS: Appearance,Urine Clear (Clear); Bilirubin,Urine Negative (Negative); Blood,Urine Trace (Negative); Color,Urine Yellow; Glucose,Urine (UA) Negative (Negative); Hyaline Casts,Urine 1 /lpf (0-2); Ketones,Urine Negative (Negative); Leukocyte Esterase,Urine Moderate (Negative); Mucus,Urine Rare /hpf; Nitrite,Urine Negative (Negative); Protein,Urine Trace (Negative); RBC,Urine 3 /hpf (0-5); WBC,Urine 9 /hpf (0-5)
[2020-08-29] MEDS ORDERED: HALOPERIDOL LACTATE 5 MG/ML 1 ML VIAL IM PRN (13:48)
--- NOTE | 2020-08-29 13:48 | P.CN ---
Psychiatric Consult - . Consult date: 08/29/20 Consult:: 08/29/20 13:33 IDENTIFYING DATA: This patient is a 69 yo female lives in a house independently. REASON FOR REFERRAL: Psychiatry was consulted for "capacity, found wandering around the yard" HISTORY OF PRESENT ILLNESS: The patient presented to the hospital on 08/26/20 for confusion. Patient was apparently found wandering around her yard prior to coming in the hospital. She was a poor historian and was confused in the ER. She was complaining of dyspnea. Patient's UDS was positive for opiates. Her white blood cell count was elevated to 36.1 and RBCs were down to 3.34 on admission. Patient also had platelet count of 566. She had elevated creatinine at 6.54 and BUN was 74. Patient had a computed tomography scan of her brain which showed mild patchy small vessel ischemia and no acute changes. Patient was found to have metabolic acidosis and hyperkalemia and was admitted to medicine. Nursing care physician states that patient has been confused throughout her hospitalization and has been sleeping poorly and has been grabbing at things/hallucinating at times. Patient was seen at the bedside today by check writer and patient was looking at the TV. Patient responded to check writer and acknowledged him however did not respond to her name. She repeated her name "Libia" after check writer did however would then turn away from check writer. Patient appeared to be bizarre and confused during the conversation and had poor att ention span/concentration. She was following minimal commands. She would not answer most questions during the interview and simply looked at check writer and said "ahh" then would turn away. He was unable to get any further history from patient. PAST PSYCHIATRIC HISTORY: Patient has no documented psychiatric hospitalizations on the mental health floor. She was seen in April 2019 for depression by EPS. Patient is currently on Cymbalta and BuSpar. PAST MEDICAL HISTORY: Hypertension and rheumatoid arthritis. ALLERGIES: as per EMR. CHEMICAL DEPENDENCY HISTORY: Patient's UDS was positive for opiates. FAMILY PSYCHIATRIC/SUBSTANCE USE HISTORY: Unable to obtain SOCIAL HISTORY: Unable to obtain. MENTAL STATUS EXAM: General Appearance: Patient appears to be stated age is alert, difficult to redirect poor concentration and appears to be confused and bizarre. Patient appears to have fair hygiene and grooming wearing hospital gown with poor eye contact. Behavior: Confused and bizarre. Lying in bed with no agitation. Speech: Patient's speech is fluent and nonpressured. Mood/Affect: Unable to obtain Suicidality/Homicidality: Unable to obtain Perceptions: Unable to obtain Though content/process: Ball, poverty of content. Memory and concentration: Poor concentration. Oriented to just name. Judgment and insight: poor IMPRESSIONS: Delirium likely multiple etiologies including acute renal failure, electrolytes, possibly opiates, and infection History of depression PLAN: -At this time patient DOES NOT meet criteria for inpatient psychiatric admission. -Delirium precautions recommended with patient including - avoiding use of narcotics and [employer] sedatives, limit anticholinergic medications when possible, frequent re-orientation, minimize use of restraints, open window shades during the day and close them at night -Would recommend the following medication changes/additions: Continue with BuSpar 10 mg twice a day and Cymbalta 30 mg daily as these are her home dose and medications. Increased Haldol IM 2.5 mg IM q8prn for agitation. start Zyprexa 2.5 mg qhs for psychosis/delirium/insomnia. Continue with treatment of underlying comorbities and infection and the delirium should gradually improve. -Communicated plan to patient's nurse -Will continue to follow along -Please contact with any questions.
--- NOTE | 2020-08-29 15:21 | P.PN ---
Subjective Progress Note Date: 08/29/20 Principal diagnosis: Altered mental status, acute kidney injury, bibasilar pneumonia, possibly aspiration related 69-year-old female presented to the ED with altered mental status. The patient was confused. The patient was found to be wandering around in [place] in her apartment.. The patient was able to answer questions upon frequent questionings. The patient's was complaining of some shortness of breath. Essentially the history was limited and patient himself was very poor in her history providing ability. Pupils are constricted. She was found to have anion gap metabolic acidosis with elevated lactic acid level. White cell count was 36. Chest x-ray showed normal pulmonary infiltrates. Aspiration was considered and the patient was given Levaquin. The patient was also found to have an acute kidney injury in the creatinine was up to 6.5. He was 77 and the patient has anion gap metabolic acidosis with a serum bicarb of 12. The blood gas showed a pH of 7.25 with a pCO2 of 31 and pO2 of 69 and this was on FiO2 of 45%. The patient also had +1 bilirubin and +1 protein and her UA, negative for any infection, urine toxin was positive for opiates, the COVID 19 testing was negative. The patient was started on IV fluids and currently the patient is rec eiving normal saline at the rate of 130 mL an hour. The patient was given a dose of Levaquin in the emergency department. She was placed also on Levaquin. CAT scan of the brain showed mild patchy burden of chronic small vessel ischemic disease. No acute abnormalities noted. The ultrasound the kidneys showed no evidence of hydronephrosis. The patient is known to have RA and hypertension. The patient is currently on 10 L by nasal cannula to maintain saturation above 90%. Overnight, the patient was given IV fluids and the patient was also given bicarb infusion after being given normal saline. The patient was seen by nephrology. Renal function is improving and the patient is producing adequate amount of urine output. Oxygenation is still impaired and the patient on 10 L of oxygen by nasal cannula. She has crackling and there is still consideration of Covid 19 infection. On 08/28/2020 the patient is looking improved compared to yesterday. The patient is currently on 8 L of oxygen by nasal cannula. Her white cell count is improved. The patient is still on Levaquin. Computed tomography scan of the chest was done and showed some limited bibasilar pulmonary infiltrates. Overall CAT scan picture was limited due to lack of contrast. Otherwise, the patient is receiving IV fluids. The renal function continues to improve. The patient is producing urine output. Nephrology is on the case. The white cell count of 17.7 which is improved. Creatinine is down to 1.3. The SARS Cov2 d antibodies were negative and the rapid PCR was also negative. Computed tomography scan of the neck was also unremarkable. The blood culture is negative. 08/29/2020 patient remains somewhat confused, but appears to be in no acute distress, breathing comfortably, she is currently on 6 L of oxygen her pulse ox of 93-94%, she is afebrile, denies any chest discomfort, lung sounds reveal bibasilar crackles, no wheezing, no rhonchi, she had no fever or chills, today's labs reviewed showing stable white count of 17.5, hemoglobin of 9.7, electrolytes within normal limits, BUN is 16 creatinine 0.8, urinalysis showed no definite sign of infection, patient tested negative for coronavirus, she remains on Levaquin for possibility of aspiration related pneumonia, no recent chest x-ray, no acute events overnight. No cough, hemoptysis. Objective - Vital Signs Vital signs: Vital Signs Temp 97.5 F L 08/29/20 14:00 Pulse 68 08/29/20 14:00 Resp 18 08/29/20 14:00 BP 171/76 08/29/20 14:00 Pulse Ox 93 L 08/29/20 14:00 Intake & Output 08/28/20 08/29/20 08/29/20 18:59 06:59 18:59 Intake Total 1100 Output Total 350 Balance 750 Intake: Intake, IV Titration 900 Amount Sodium Chloride 0.9% 1, 900 000 ml @ 75 mls/hr IV . [id number] [facility] Rx#:[id number] Oral 200 Output: Urine 350 Other: Voiding Method Indwelling Catheter Indwelling Catheter Indwelling Catheter - Exam GENERAL EXAM: Alert, confused, 69-year-old white female, who appears to be hard of hearing and confused in addition to it, currently on 6 L of oxygen the pulse ox of 93-94% comfortable in no apparent distress. HEAD: Normocephalic/atraumatic. EYES: Normal reaction of pupils, equal size. Conjunctiva pink, sclera white. NOSE: Clear with pink turbinates. THROAT: No erythema or exudates. NECK: No masses, no JVD, no thyroid enlargement, no adenopathy. CHEST: No chest wall deformity. Symmetrical expansion. LUNGS: Equal air entry with bibasilar crackles CVS: Regular rate and rhythm, normal S1 and S2, no gallops, no murmurs, no rubs ABDOMEN: Soft, nontender. No hepatosplenomegaly, normal bowel sounds, no guarding or rigidity. EXTREMITIES: No clubbing, no edema, no cyanosis, 2+ pulses and upper and lower extremities. MUSCULOSKELETAL: Muscle strength and tone normal. SPINE: No scoliosis or deformity SKIN: No rashes CENTRAL NERVOUS SYSTEM: Alert and oriented -2 No focal deficits, tone is normal in all 4 extremities. PSYCHIATRIC: Alert and oriented -2. Appropriate affect. Intact judgment and insight. - Labs CBC & Chem 7: 08/29/20 08:15 08/29/20 08:15 Labs: Abnormal Lab Results - Last 24 Hours (Table) 08/29/20 08/29/20 08/29/20 Range/Units 08:15 08:15 10:45 WBC 17.5 H (3.8-10.6) k/uL RBC 3.00 L (3.80-5.40) m/uL Hgb 9.7 L (11.4-16.0) gm/dL Hct 28.7 L (34.0-46.0) % Neutrophils # 14.2 H (1.3-7.7) k/uL Monocytes # 1.4 H (0-1.0) k/uL Anion Gap 12.10 H (4.00-12.00) mmol/L Glucose 144 H (70-110) mg/dL Calcium 8.5 L (8.7-10.3) mg/dL Urine Protein Trace H (Negative) Urine Blood Trace H (Negative) Ur Leukocyte Esterase Moderate H (Negative) Urine WBC 9 H (0-5) /hpf Urine Mucus Rare H (None) /hpf Microbiology - Last 24 Hours (Table) 08/26/20 16:37 Blood Culture - Preliminary Blood No Growth after 48 hours Assessment and Plan Plan: 1 altered mental status. In addition the patient has a component of metabolic encephalopathy secondary to acute kidney injury/renal failure. Clinically improving 2 acute kidney injury , with secondary metabolic acidosis , improving with adequate urine output and the creatinine is down to 0.8 3 acute hypoxic respiratory failure with bilateral pulmonary infiltrates involving the lung bases, consider underlying aspiration. this computed tomography scan also showing bilateral lower lobe pulmonary infiltrates. The patient is currently on 10 L by nasal cannula. The oxygenation in general is improved. The computed tomography scan is showing some lower lobe pulmonary infiltration. Patient is on Levaquin. 4 GI bleed is suspected and the patient some coffee-ground emesis and the patient is considered to have an underlying upper GI bleeding, stable hemoglobin 5 Arthritis 6 hypertension 7 depression 8 acute leukocytosis, improving Plan: We will obtain follow-up chest x-ray tomorrow, clinically stable, wean FiO2 to maintain O2 saturations at or above 90-92%, no fever or chills, blood culture has shown no growth thus far, 7 stable, no worsening dyspnea or cough. We'll continue to follow continue oral antibiotics I performed a history & physical examination of the patient and discussed their management with my nurse practitioner, Sheila Diaz. I reviewed the nurse practitioner's note and agree with the documented findings and plan of care. Lung sounds are positive for diminished breath sounds The findings and the impression was discussed with the patient. I attest to the documentation by the nurse practitioner. Time with Patient: Less than 30
--- NOTE | 2020-08-29 15:22 | P.PN ---
Subjective Progress Note Date: 08/29/20 Patient's 69-year-old female came in with her to the ER with compensative confusion. Patient is able to provide me history patient knows year and where she is but not appropriate patient denied any fever chills patient denied any Dysuria. Patient does answer questions so the mother in appropriate. Patient does have constricted pupils patient was given a dose of Marcaine with the improvement in pupillary constriction patient is bit more awake still confused. Patient is found to have a severe metabolic acidosis and anion gap lactic acid is being obtained patient has white blood cell count of 36,000 doesn't have any fevers chest x-ray showed infiltrate in the posterior lung hurley possibly of aspiration patient is ALLERGIC to cephalosporins because of which patient was started on levofloxacin. Patient baseline creatinine is around 1.2 and patient is found to have creatinine was 6.5 ultrasound of the kidney will be obtained nephrology was consulted patient had coffee-ground emesis possibly of upper GI bleed, not gastroenterology will be consulted and patient was started on Protonix. 08/27/2020 Patient is seen and evaluated and follow-up continues to be confused. Multiple medical consultations including GI, nephrology, and pulmonary following. Patient currently continues to be dyspneic and requiring 11 L of oxygen via nasal cannula. Patient's initial Covid testing was negative and pulmonary following and there is high suspicion of Covid and repeat studies have been ordered and pending. Patient is maintained on IV bicarb and will continue. Patient continues with Levaquin. Kidney functions improved today and creatinine is 3.95. Lactic acid is also improved and is currently 0.6. No reports of chest pain or palpitations noted. No further reports of any GI bleeding noted. Will repeat a.m. labs and continue to monitor closely. 08/28/2020 Patient is seen this morning continues to be confused although more verbal but conversation is scattered and patient is not able to stay on topic. Denies any worsening shortness of breath or difficulty in breathing although continues to be maintained on 10 L high flow. Serial antibody and repeat Covid testing are negative. Pulmonary and nephrology following along with GI. Patient denies any nausea or vomiting states she does not have much of an appetite and is not eating very much. Creatinine improved and is currently 1.33 with a BUN of 38 and sodium is 140 with a potassium of 4.9. White blood count is 17.7 and val ent is maintained on IV Levaquin and will continue, hemoglobin is 9.8 again with no active bleeding noted. Sodium bicarb was discontinued and patient is maintained on normal saline and will continue. Will repeat a.m. labs and continue to monitor closely. 08/29/2020 Patient is seen and evaluated and follow-up this morning continues to be confused and is alert and oriented to name. Per nursing staff patient is eating very small amounts of meals although is eating and is continued on oxygen via nasal cannula and is titrating down currently maintained on 6 L high flow. Psychiatry evaluated the patient with medication adjustments and nephrology, pulmonary, and GI are following. No endoscopic intervention at this time with no active bleeding noted. Patient is to continue with normal saline and will discontinue Marie catheter. We count today 17.5 and hemoglobin is 9.7, sodium is 143 with a potassium of 4.1 and creatinine is 0.8. Magnesium is 1.8. Per nursing staff urinalysis was obtained as patient continues to state she has to urinate although continue with an indwelling Marie catheter. Will repeat a.m. labs and continue to monitor closely. Continue to wean FiO2 as tolerated. Patient is afebrile Review of systems: Constitutional: No reports of fatigue, fever, or chills Cardiovascular: No reports of chest pain or palpitations Respiratory: No reports of shortness of breath or cough GI: No reports of nausea, vomiting, or diarrhea, reports poor appetite : No reports of dysuria or retention, reports urinary frequency Neurovascular: No reports of weakness or numbness All medications have been reviewed Objective - Vital Signs Vital signs: Vital Signs Temp 98.4 F 08/29/20 05:37 Pulse 67 08/29/20 05:37 Resp 18 08/29/20 05:37 BP 152/73 08/29/20 05:37 Pulse Ox 94 L 08/29/20 05:37 Intake & Output 08/28/20 08/29/20 08/29/20 18:59 06:59 18:59 Intake Total 1100 Output Total 350 Balance 750 Intake: Intake, IV Titration 900 Amount Sodium Chloride 0.9% 1, 900 000 ml @ 75 mls/hr IV . [id number] [facility] Rx#:[id number] Oral 200 Output: Urine 350 Other: Voiding Method Indwelling Catheter Indwelling Catheter - Exam GENERAL: The patient is pleasantly confused oriented 1, not in any acute distress. Well developed, well nourished. HEENT: Restricted pupils nonreactive to light. EOMI. No scleral icterus. No conjunctival pallor. Normocephalic, atraumatic. No pharyngeal erythema. No thyromegaly. CARDIOVASCULAR: S1 and S2 present. No murmurs, rubs, or gallops. PULMONARY: Chest is clear to auscultation, no wheezing or crackles. A few scattered rhonchi noted bilaterally ABDOMEN: Soft, nontender, nondistended, normoactive bowel sounds. No palpable organomegaly. MUSCULOSKELETAL: No joint swelling or deformity. EXTREMITIES: No cyanosis, clubbing, or pedal edema. NEUROLOGICAL: All 4 limbs doesn't appear to have any focal deficits SKIN: No rashes. - Labs CBC & Chem 7: 08/29/20 08:15 08/29/20 08:15 Labs: Abnormal Lab Results - Last 24 Hours (Table) 08/28/20 08/29/20 Range/Units 06:06 08:15 WBC 17.7 H 17.5 H (3.8-10.6) k/uL RBC 3.18 L 3.00 L (3.80-5.40) m/uL Hgb 9.8 L 9.7 L (11.4-16.0) gm/dL Hct 31.5 L 28.7 L (34.0-46.0) % RDW 15.6 H (11.5-15.5) % Plt Count 511 H (150-450) k/uL Neutrophils # 14.2 H (1.3-7.7) k/uL Monocytes # 1.4 H (0-1.0) k/uL Microbiology - Last 24 Hours (Table) 08/26/20 16:37 Blood Culture - Preliminary Blood No Growth after 48 hours Assessment and Plan Assessment: -possible aspiration pneumonia for which patient was started on levofloxacin -Hyperkalemia due to renal failure, improving -Leukocytosis, trending down white blood count today is 17.5 -Altered mental status, toxic encephalopathy probably because of opiate overdose. Patient remains confused and agitated at times. We will use Haldol for agitation. Psychiatry following -Acute upper GI bleed secondary to possible gastritis, continue IV Protonix and Zofran as needed for nausea and GI following, no further emesis or bleeding noted -Anion gap metabolic acidosis probably lactic acidosis which is improved with no clear evidence of sepsis at this time -Acute renal failure on chronic kidney disease stage II acute renal failure secondary to prerenal azotemia maybe even acute tubular necrosis , removing indwelling Marie catheter monitor for retention. ultrasound of the kidneys showing a slightly small left kidney with no evidence of hydronephrosis noted -Hypertension -Patient appears to have history of rheumatoid arthritis given her medication list -Depression Plan: Continue with current medications and IV antibiotics. Patient is maintained on normal saline. Nephrology following. Psychiatry consulted and following. Pulmonary also following and patient is requiring 6 L of oxygen high flow and continues to be dyspneic. Weaning FiO2 as tolerated. Removing indwelling Marie catheter and monitor for retention. Repeat Covid testing and PCR and antibodies have been negative. Patient continues to be confused. Will repeat a.m. labs and continue to monitor closely.
[2020-08-29] MEDS: ALBUTEROL HFA INHALER INHALATION PRN (16:28)
[2020-08-29] MEDS ORDERED: OLANZapine 2.5 MG TAB PO SCH (21:00)
[2020-08-29 21:46] LABS: Ferritin 260.1 ng/mL (10.0-291.0)
[2020-08-29 21:48] LABS: % Iron Saturation 7.01 (12.00-45.00)
[2020-08-30] MEDS: SODIUM CHLORIDE 0.9% 1,000 ML IV SCH ×2 (00:50→15:38)
[2020-08-30] MEDS: ACETAMINOPHEN TAB 325 MG TAB PO PRN (06:17)
--- NOTE | 2020-08-30 07:22 | XR ---
EXAMINATION TYPE: XR chest 1V portable DATE OF EXAM: 08/30/2020 Comparison: 08/27/2020 Clinical History: 69-year-old female follow-up pneumonia Findings: Heart normal size. Aorta within normal limits. Increasing diffuse interstitial densities and patchy l eft greater than right lower lung opacities. No pleural effusion. Impression: Interval worsening now with diffuse interstitial infiltrates and left greater than right basilar airs pace disease.
[2020-08-30] MEDS: LEVOFLOXACIN 250 MG TAB PO SCH (07:58)
[2020-08-30] MEDS: FLUTICASONE 50MCG/SPRAY NASAL 16GM EA NOSTRIL SCH (07:58)
[2020-08-30] MEDS: DULoxetine HCL 60 MG CAPSULE.DR PO SCH (07:58)
[2020-08-30] MEDS: PANTOPRAZOLE 40 MG/10 ML VIAL IVP SCH ×2 (07:58→20:38)
[2020-08-30] MEDS: HEPARIN SODIUM,PORCINE/PF 5,000 UNIT/0.5 ML SYRINGE SQ SCH ×2 (07:58→20:38)
[2020-08-30] MEDS: busPIRone HCl 10 MG TAB PO SCH ×2 (07:58→20:38)
[2020-08-30 11:03] LABS: HCT 32.5 % (34.0-46.0); HGB 10.3 gm/dL (11.4-16.0); MCH 30.9 pg (25.0-35.0); MCHC 31.6 g/dL (31.0-37.0); MCV 97.6 fL (80.0-100.0); Mean Platelet Volume 7.1; Platelet Count 419 k/uL (150-450); RBC 3.33 m/uL (3.80-5.40); RDW 14.6 % (11.5-15.5); WBC 18.5 k/uL (3.8-10.6)
--- NOTE | 2020-08-30 11:22 | P.PN ---
Subjective Patient is seen in follow-up for acute kidney injury. Renal function continues to improve. Acidosis also improved. Maintained on normal saline. Not a reliable historian. Nonoliguric. Hemodynamically stable. Marie catheter was removed yesterday which she required straight catheterization twice with 500 mL urine obtained each time. Vital signs are stable. General: The patient appeared well nourished and normally developed. HEENT: Head exam is unremarkable. Neck is without jugular venous distension. LUNGS: Breath sounds decreased. HEART: Rate and Rhythm are regular. ABDOMEN: Soft, nontender. EXTREMITITES: No edema. Objective - Vital Signs Vital signs: Vital Signs Temp 98.9 F 08/30/20 09:26 Pulse 66 08/30/20 09:26 Resp 17 08/30/20 09:26 BP 149/71 08/30/20 09:26 Pulse Ox 95 08/30/20 09:26 Intake & Output 08/29/20 08/30/20 08/30/20 18:59 06:59 18:59 Output Total 237 014 0388 Balance -500 -525 -1000 Output: Urine 500 1000 Uretheral (Marie) 500 Post Void Residual 525 Other: Voiding Method Indwelling Catheter Diaper Incontinent # Bowel Movements 1 - Labs CBC & Chem 7: 08/30/20 09:59 08/29/20 08:15 Labs: Abnormal Lab Results - Last 24 Hours (Table) 08/29/20 08/29/20 08/29/20 Range/Units 08:15 08:15 10:45 WBC (3.8-10.6) k/uL RBC (3.80-5.40) m/uL Hgb (11.4-16.0) gm/dL Hct (34.0-46.0) % Anion Gap 12.10 H (4.00-12.00) mmol/L Glucose 144 H (70-110) mg/dL Calcium 8.5 L (8.7-10.3) mg/dL Iron 15 L (50-170) ug/dL TIBC 214 L (228-460) ug/dL % Saturation 7.01 L (12.00-45.00) Urine Protein Trace H (Negative) Urine Blood Trace H (Negative) Ur Leukocyte Esterase Moderate H (Negative) Urine WBC 9 H (0-5) /hpf Urine Mucus Rare H (None) /hpf 08/30/20 Range/Units 09:59 WBC 18.5 H (3.8-10.6) k/uL RBC 3.33 L (3.80-5.40) m/uL Hgb 10.3 L (11.4-16.0) gm/dL Hct 32.5 L (34.0-46.0) % Anion Gap (4.00-12.00) mmol/L Glucose (70-110) mg/dL Calcium (8.7-10.3) mg/dL Iron (50-170) ug/dL TIBC (228-460) ug/dL % Saturation (12.00-45.00) Urine Protein (Negative) Urine Blood (Negative) Ur Leukocyte Esterase (Negative) Urine WBC (0-5) /hpf Urine Mucus (None) /hpf Microbiology - Last 24 Hours (Table) 08/26/20 16:37 Blood Culture - Preliminary Blood No Growth after 72 hours Assessment and Plan Plan: Assessment: 1. Acute kidney injury mostly prerenal improving with IV hydration. Creatinine 6.54 on admission and is 0.8 as of yesterday. Creatinine was 1.12 in April 2019. No hydronephrosis noted on kidney ultrasound. Left kidney noted to be small in size. 2. Mild hyperkalemia secondary to acute kidney injury, enalapril and acidosis. ? Bactrim. Resolved. 3. Metabolic acidosis secondary to acute kidney injury. Improved with bicarbonate drip. 4. Acute hypoxia respiratory failure secondary to pneumonia currently on high flow nasal cannula. 5. Benign hypertension. Controlled. 6. Altered mental status. Possibly from hypoxia. Urine drug screen positive for opiates. She did receive Narcan. Psychiatry consulted. 7. Anemia. Iron deficiency noted. Plan: Decrease normal saline to 50 mL an hour. Marie catheter reinserted for urinary retention. I will add Flomax as well. Avoid nephrotoxins. Wean FiO2. IV iron 3 doses. First dose today.
[2020-08-30] MEDS: TAMSULOSIN 0.4 MG CAP.ER.24H PO SCH (12:00)
--- NOTE | 2020-08-30 12:44 | P.PN ---
Progress Note - Text Progress Note Date: 08/30/20 Interval History: Patient was seen today for psychiatric follow-up regarding patient's delirium. Patient's nurse states that patient has been doing better today and less confused and more appropriate with her however did state that she did not get any sleep at all and required a Haldol prn injection for her to get some rest. Patient responded to her name once again however appear to have improvement in her concentration. She was more appropriately with property underwriter and teared to be attempting to cooperate as best as she could. She answered most questions. She correctly stated her name and that she was in hospital. She did not know today's date and believes that it was "1994". She states that she is at Hospital for "pneumonia". She states that she could not sleep last night and is denying any changes in her mood. She was asking about discharge today and appears to have poor insight. At this time patient denies any suicidal or homical ideations, intent or plan. Patient denies any auditory, visual hallucinations. Patient denies any side effects from the medications and has been compliant with meds. Mental Status Exam: General Appearance: Patient appears to be stated age is alert, improvement in her concentration and is attempting to cooperate. Patient appears to have fair hygiene and grooming wearing hospital gown with improving eye contact. Behavior: Lying in bed with no agitation. Attending to cooperate. Speech: Patient's speech is fluent and nonpressured. Mood/Affect: She reports that her mood is "okay" and affect is constricted. Suicidality/Homicidality: Denies Perceptions: Denies any auditory or visual hallucinations. Though content/process: [place], poverty of content. Not endorsing any paranoia or delusions. Memory and concentration: Alert and oriented 2 however does not know today's date. She believes it is 1994. Concentration improving. Judgment and insight: poor, improving mildly Assessment Delirium likely multiple etiologies including acute renal failure, electrolytes, possibly opiates, and infection History of depression Plan: -At this time patient DOES NOT meet criteria for inpatient psychiatric admission. -Delirium precautions recommended with patient including - avoiding use of narcotics and PRIVATE PILOT sedatives, limit anticholinergic medications when possible, frequent re-orientation, minimize use of restraints, open window shades during the day and close them at night -Would recommend the following medication changes/additions: Continue with BuSpar 10 mg twice a day and Cymbalta 60 mg daily as these are her home dose and medications. Continue with Haldol IM 2.5 mg IM q8prn for agitation. Increased Zyprexa 5 mg qhs for psychosis/delirium/insomnia. Continue with treatment of underlying comorbities and infection and the delirium should gradually improve. -Communicated plan to patient's nurse -Will continue to follow along -Please contact with any questions.
[2020-08-30] MEDS: SODIUM FERRIC GLUCONAT-SUCROSE 125 MG in SODIUM CHLORIDE 0.9% 100 ML IVPB SCH (12:50)
[2020-08-30 12:54] LABS: ALT 20 U/L (4-34); AST 50 U/L (14-36); African American GFR (CKD) >90 (>60 ml/min/1.73 sqM); Albumin 3.3 g/dL (3.5-5.0); Albumin/Globulin Ratio 1.1; Alkaline Phosphatase 98 U/L (38-126); Anion Gap 9 mmol/L; Blood Urea Nitrogen 13 mg/dL (7-17); Calcium 8.3 mg/dL (8.4-10.2); Carbon Dioxide 25 mmol/L (22-30); Chloride 107 mmol/L (98-107); Globulin 2.9 g/dL; Glucose 88 mg/dL (74-99); Magnesium 1.7 mg/dL (1.6-2.3); Non-African American GFR(CKD) 79 (>60 ml/min/1.73 sqM); Potassium 3.5 mmol/L (3.5-5.1); Sodium 141 mmol/L (137-145); Total Bilirubin 0.7 mg/dL (0.2-1.3); Total Protein 6.2 g/dL (6.3-8.2)
--- NOTE | 2020-08-30 16:02 | P.PN ---
Subjective Progress Note Date: 08/30/20 Principal diagnosis: Altered mental status, acute kidney injury, bibasilar pneumonia, possibly aspiration related 69-year-old female presented to the ED with altered mental status. The patient was confused. The patient was found to be wandering around in [place] in her apartment.. The patient was able to answer questions upon frequent questionings. The patient's was complaining of some shortness of breath. Essentially the history was limited and patient himself was very poor in her history providing ability. Pupils are constricted. She was found to have anion gap metabolic acidosis with elevated lactic acid level. White cell count was 36. Chest x-ray showed normal pulmonary infiltrates. Aspiration was considered and the patient was given Levaquin. The patient was also found to have an acute kidney injury in the creatinine was up to 6.5. He was 77 and the patient has anion gap metabolic acidosis with a serum bicarb of 12. The blood gas showed a pH of 7.25 with a pCO2 of 31 and pO2 of 69 and this was on FiO2 of 45%. The patient also had +1 bilirubin and +1 protein and her UA, negative for any infection, urine toxin was positive for opiates, the COVID 19 testing was negative. The patient was started on IV fluids and currently the patient is rec eiving normal saline at the rate of 130 mL an hour. The patient was given a dose of Levaquin in the emergency department. She was placed also on Levaquin. CAT scan of the brain showed mild patchy burden of chronic small vessel ischemic disease. No acute abnormalities noted. The ultrasound the kidneys showed no evidence of hydronephrosis. The patient is known to have RA and hypertension. The patient is currently on 10 L by nasal cannula to maintain saturation above 90%. Overnight, the patient was given IV fluids and the patient was also given bicarb infusion after being given normal saline. The patient was seen by nephrology. Renal function is improving and the patient is producing adequate amount of urine output. Oxygenation is still impaired and the patient on 10 L of oxygen by nasal cannula. She has crackling and there is still consideration of Covid 19 infection. On 08/28/2020 the patient is looking improved compared to yesterday. The patient is currently on 8 L of oxygen by nasal cannula. Her white cell count is improved. The patient is still on Levaquin. Computed tomography scan of the chest was done and showed some limited bibasilar pulmonary infiltrates. Overall CAT scan picture was limited due to lack of contrast. Otherwise, the patient is receiving IV fluids. The renal function continues to improve. The patient is producing urine output. Nephrology is on the case. The white cell count of 17.7 which is improved. Creatinine is down to 1.3. The SARS Cov2 d antibodies were negative and the rapid PCR was also negative. Computed tomography scan of the neck was also unremarkable. The blood culture is negative. 08/29/2020 patient remains somewhat confused, but appears to be in no acute distress, breathing comfortably, she is currently on 6 L of oxygen her pulse ox of 93-94%, she is afebrile, denies any chest discomfort, lung sounds reveal bibasilar crackles, no wheezing, no rhonchi, she had no fever or chills, today's labs reviewed showing stable white count of 17.5, hemoglobin of 9.7, electrolytes within normal limits, BUN is 16 creatinine 0.8, urinalysis showed no definite sign of infection, patient tested negative for coronavirus, she remains on Levaquin for possibility of aspiration related pneumonia, no recent chest x-ray, no acute events overnight. No cough, hemoptysis. On 08/30/2020 patient seen in follow-up on medical surgical floor, her mentation is much improved, she is oriented to person, place and time, she is much more coherent, and seems to have definitely improved, no confusion or agitation, she is quite comfortable, she does not remember what brought her to the hospital, but she remembers being agitated in the emergency department, denies any worsening dyspnea, she remains 4 L of oxygen her pulse ox is 94%, she is afebrile, hemodynamically patient is stable. Today's follow-up chest x-ray shows some interval worsening with diffuse interstitial infiltrates and left greater than right basilar airspace disease. Clinically she remains stable, no completes of chest pain, only occasional cough, lung sounds reveal bibasilar crackles, today's labs have been reviewed, white blood cell count is 18.5, he moglobin is 10.3, electrolytes and renal profile are stable on today's labs, creatinine is improved, and is at 0.78, patient continues on IV fluids at 100 seen at 50 ML per hour, she is tolerating oral intake, no nausea vomiting or diarrhea. She remains on Levaquin for antibiotic coverage, vital signs have been stable, she's had no fever or chills. Objective - Vital Signs Vital signs: Vital Signs Temp 98.4 F 08/30/20 13:55 Pulse 73 08/30/20 13:55 Resp 20 08/30/20 13:55 BP 122/53 08/30/20 13:55 Pulse Ox 94 L 08/30/20 13:55 Intake & Output 08/29/20 08/30/20 08/30/20 18:59 06:59 18:59 Output Total 466 978 2739 Balance -500 -525 -1000 Output: Urine 500 1000 Uretheral (Marie) 500 Post Void Residual 525 Other: Voiding Method Indwelling Catheter Diaper Incontinent # Bowel Movements 1 - Exam GENERAL EXAM: Alert, pleasant, cooperative 69-year-old white female, much more awake and alert, and patient is oriented 3, and much less confused, no agitation currently on 4 L of oxygen the pulse ox of 93-94% comfortable in no apparent distress. HEAD: Normocephalic/atraumatic. EYES: Normal reaction of pupils, equal size. Conjunctiva pink, sclera white. NOSE: Clear with pink turbinates. THROAT: No erythema or exudates. NECK: No masses, no JVD, no thyroid enlargement, no adenopathy. CHEST: No chest wall deformity. Symmetrical expansion. LUNGS: Equal air entry with bibasilar crackles CVS: Regular rate and rhythm, normal S1 and S2, no gallops, no murmurs, no rubs ABDOMEN: Soft, nontender. No hepatosplenomegaly, normal bowel sounds, no guarding or rigidity. EXTREMITIES: No clubbing, no edema, no cyanosis, 2+ pulses and upper and lower extremities. MUSCULOSKELETAL: Muscle strength and tone normal. SPINE: No scoliosis or deformity SKIN: No rashes CENTRAL NERVOUS SYSTEM: Alert and oriented -3 No focal deficits, tone is normal in all 4 extremities. PSYCHIATRIC: Alert and oriented -3. Appropriate affect. Intact judgment and insight. - Labs CBC & Chem 7: 08/30/20 09:59 08/30/20 09:59 Labs: Abnormal Lab Results - Last 24 Hours (Table) 08/29/20 08/30/20 08/30/20 Range/Units 08:15 09:59 09:59 WBC 18.5 H (3.8-10.6) k/uL RBC 3.33 L (3.80-5.40) m/uL Hgb 10.3 L (11.4-16.0) gm/dL Hct 32.5 L (34.0-46.0) % Calcium 8.3 L (8.4-10.2) mg/dL Iron 15 L (50-170) ug/dL TIBC 214 L (228-460) ug/dL % Saturation 7.01 L (12.00-45.00) AST 50 H (14-36) U/L Total Protein 6.2 L (6.3-8.2) g/dL Albumin 3.3 L (3.5-5.0) g/dL Microbiology - Last 24 Hours (Table) 08/26/20 16:37 Blood Culture - Preliminary Blood No Growth after 72 hours Assessment and Plan Plan: 1 altered mental status, significantly improved and this was due to metabolic encephalopathy secondary to acute kidney injury/renal failure. Clinically improving 2 acute kidney injury , with secondary metabolic acidosis , improving with adequate urine output and the creatinine is down to 0.8 3 acute hypoxic respiratory failure with bilateral pulmonary infiltrates involving the lung bases, consider underlying aspiration. this computed tomography scan also showing bilateral lower lobe pulmonary infiltrates. The pa tient is currently on 10 L by nasal cannula. The oxygenation in general is improved. The computed tomography scan is showing some lower lobe pulmonary infiltration. Patient is on Levaquin. 4 GI bleed is suspected and the patient some coffee-ground emesis and the patient is considered to have an underlying upper GI bleeding, stable hemoglobin 5 Arthritis 6 hypertension 7 depression 8 acute leukocytosis, improving Plan: Continue current antibiotic coverage Wean FiO2 Increase activity as tolerated Mentation has much improved, Vital signs are stable Cut back to KVO If continues to improve consider discharge in next 24-48 hours I performed a history & physical examination of the patient and discussed their management with my nurse practitioner, Sheila Diaz. I reviewed the nurse practitioner's note and agree with the documented findings and plan of care. Lung sounds are positive for diminished breath sounds The findings and the impression was discussed with the patient. I attest to the documentation by the nurse practitioner. Time with Patient: Less than 30
--- NOTE | 2020-08-30 16:43 | P.PN ---
Subjective Progress Note Date: 08/30/20 Principal diagnosis: Altered mental status, acute kidney injury, bibasilar pneumonia, possibly aspiration related 69-year-old female presented to the ED with altered mental status. The patient was confused. The patient was found to be wandering around in [place] in her apartment.. The patient was able to answer questions upon frequent questionings. The patient's was complaining of some shortness of breath. Essentially the history was limited and patient himself was very poor in her history providing ability. Pupils are constricted. She was found to have anion gap metabolic acidosis with elevated lactic acid level. White cell count was 36. Chest x-ray showed normal pulmonary infiltrates. Aspiration was considered and the patient was given Levaquin. The patient was also found to have an acute kidney injury in the creatinine was up to 6.5. He was 77 and the patient has anion gap metabolic acidosis with a serum bicarb of 12. The blood gas showed a pH of 7.25 with a pCO2 of 31 and pO2 of 69 and this was on FiO2 of 45%. The patient also had +1 bilirubin and +1 protein and her UA, negative for any infection, urine toxin was positive for opiates, the COVID 19 testing was negative. The patient was started on IV fluids and currently the patient is re ceiving normal saline at the rate of 130 mL an hour. The patient was given a dose of Levaquin in the emergency department. She was placed also on Levaquin. CAT scan of the brain showed mild patchy burden of chronic small vessel ischemic disease. No acute abnormalities noted. The ultrasound the kidneys showed no evidence of hydronephrosis. The patient is known to have RA and hypertension. The patient is currently on 10 L by nasal cannula to maintain saturation above 90%. Overnight, the patient was given IV fluids and the patient was also given bicarb infusion after being given normal saline. The patient was seen by nephrology. Renal function is improving and the patient is producing adequate amount of urine output. Oxygenation is still impaired and the patient on 10 L of oxygen by nasal cannula. She has crackling and there is still consideration of Covid 19 infection. 08/30/2020 patient seen in follow-up on medical surgical floor, her mentation is much improved, she is oriented to person, place and time, she is much more coherent, and seems to have definitely improved, no confusion or agitation, she is quite comfortable, she does not remember what brought her to the hospital, but she remembers being agitated in the emergency department, denies any worsening dyspnea, she remains 4 L of oxygen her pulse ox is 94%, she is afebrile, hemodyn amically patient is stable. Today's follow-up chest x-ray shows some interval worsening with diffuse interstitial infiltrates and left greater than right basilar airspace disease. Clinically she remains stable, no completes of chest pain, only occasional cough, lung sounds reveal bibasilar crackles, today's labs have been reviewed, white blood cell count is 18.5, hemoglobin is 10.3, electrolytes and renal profile are stable on today's labs, creatinine is improved, and is at 0.78, patient continues on IV fluids at 100 seen at 50 ML per hour, she is tolerating oral intake, no nausea vomiting or diarrhea. She remains on Levaquin for antibiotic coverage, vital signs have been stable, she's had no fever or chills. Objective - Vital Signs Vital signs: Vital Signs Temp 98.9 F 08/30/20 09:26 Pulse 66 08/30/20 09:26 Resp 17 08/30/20 09:26 BP 149/71 08/30/20 09:26 Pulse Ox 95 08/30/20 09:26 Intake & Output 08/29/20 08/30/20 08/30/20 18:59 06:59 18:59 Output Total 169 676 8079 Balance -500 -525 -1000 Output: Urine 500 1000 Uretheral (Marie) 500 Post Void Residual 525 Other: Voiding Method Indwelling Catheter Diaper Incontinent # Bowel Movements 1 - Exam GENERAL: The patient is pleasantly confused oriented 1, not in any acute distress. Well developed, well nourished. HEENT: Restricted pupils nonreactive to light. EOMI. No scleral icterus. No conjunctival pallor. Normocephalic, atraumatic. No pharyngeal erythema. No thyromegaly. CARDIOVASCULAR: S1 and S2 present. No murmurs, rubs, or gallops. PULMONARY: Chest is clear to auscultation, no wheezing or crackles. A few scattered rhonchi noted bilaterally ABDOMEN: Soft, nontender, nondistended, normoactive bowel sounds. No palpable organomegaly. MUSCULOSKELETAL: No joint swelling or deformity. EXTREMITIES: No cyanosis, clubbing, or pedal edema. NEUROLOGICAL: All 4 limbs doesn't appear to have any focal deficits SKIN: No rashes. - Labs CBC & Chem 7: 08/30/20 09:59 08/30/20 09:59 Labs: Abnormal Lab Results - Last 24 Hours (Table) 08/29/20 08/29/20 08/30/20 Range/Units 08:15 10:45 09:59 WBC 18.5 H (3.8-10.6) k/uL RBC 3.33 L (3.80-5.40) m/uL Hgb 10.3 L (11.4-16.0) gm/dL Hct 32.5 L (34.0-46.0) % Iron 15 L (50-170) ug/dL TIBC 214 L (228-460) ug/dL % Saturation 7.01 L (12.00-45.00) Urine Protein Trace H (Negative) Urine Blood Trace H (Negative) Ur Leukocyte Esterase Moderate H (Negative) Urine WBC 9 H (0-5) /hpf Urine Mucus Rare H (None) /hpf Microbiology - Last 24 Hours (Table) 08/26/20 16:37 Blood Culture - Preliminary Blood No Growth after 72 hours Assessment and Plan Assessment: -possible aspiration pneumonia for which patient was started on levofloxacin -Hyperkalemia due to renal failure, improving -Leukocytosis, trending down white blood count today is 17.5 -Altered mental status, toxic encephalopathy probably because of opiate overdose. Patient remains confused and agitated at times. We will use Haldol for agitation. Psychiatry following -Acute upper GI bleed secondary to possible gastritis, continue IV Protonix and Zofran as needed for nausea and GI following, no further emesis or bleeding noted -Anion gap metabolic acidosis probably lactic acidosis which is improved with no clear evidence of sepsis at this time -Acute renal failure on chronic kidney disease stage II acute renal failure secondary to prerenal azotemia maybe even acute tubular necrosis , removing indwelling Marie catheter monitor for retention. ultrasound of the kidneys showing a slightly small left kidney with no evidence of hydronephrosis noted -Hypertension -Patient appears to have history of rheumatoid arthritis given her medication list -Depression Plan: Continue with current medications and IV antibiotics. Patient is maintained on normal saline. Nephrology following. Psychiatry consulted and following. Pulmonary also following and patient is requiring 6 L of oxygen high flow and continues to be dyspneic. Weaning FiO2 as tolerated. Removing indwelling Marie catheter and monitor for retention. Repeat Covid testing and PCR and antibodies have been negative. Patient continues to be confused. Will repeat a.m. labs and continue to monitor closely.
[2020-08-30] MEDS: ALBUTEROL HFA INHALER INHALATION PRN (16:54)
[2020-08-30] MEDS: OLANZapine 5 MG TAB PO SCH (20:38)
[2020-08-31 08:42] LABS: Basophils # (A) 0.1 k/uL (0-0.2); Basophils % (A) 0 %; Eosinophils # (A) 0.3 k/uL (0-0.7); Eosinophils % (A) 2 %; HCT 31.1 % (34.0-46.0); HGB 10.3 gm/dL (11.4-16.0); Lymphocytes % (A) 15 %; MCHC 33.2 g/dL (31.0-37.0); MCV 96.4 fL (80.0-100.0); Monocytes # (A) 0.9 k/uL (0-1.0); Monocytes % (A) 7 %; Neutrophils # (A) 9.4 k/uL (1.3-7.7); Neutrophils % (A) 74 %; Platelet Count 362 k/uL (150-450); RBC 3.23 m/uL (3.80-5.40); RDW 14.8 % (11.5-15.5); WBC 12.8 k/uL (3.8-10.6)
[2020-08-31 08:53] LABS: African American GFR (CKD) >90 (>60 ml/min/1.73 sqM); Anion Gap 8 mmol/L; Blood Urea Nitrogen 10 mg/dL (7-17); Calcium 8.2 mg/dL (8.4-10.2); Carbon Dioxide 24 mmol/L (22-30); Chloride 107 mmol/L (98-107); Glucose 102 mg/dL (74-99); Magnesium 1.7 mg/dL (1.6-2.3); Non-African American GFR(CKD) 78 (>60 ml/min/1.73 sqM); Potassium 3.6 mmol/L (3.5-5.1); Sodium 139 mmol/L (137-145)
--- NOTE | 2020-08-31 08:56 | XR ---
EXAMINATION TYPE: XR chest 1V portable DATE OF EXAM: 08/31/2020 CLINICAL HISTORY: Difficulty breathing and pneumonia progress study. TECHNIQUE: Single AP portable upright view of the chest is obtained. COMPARISON: Chest x-ray from one day earlier and older studies. CT chest 4 days ago. FINDINGS: Cardiac silhouette size stable and upper limits of normal. Reticular increased opacities b ilaterally remain present with interval improvement with suspected small to tiny bilateral pleural ef fusions. Osseous structures are intact. IMPRESSION: Bilateral improved interstitial edema and/or infiltrates from one day earlier. Persistent small to tiny bilateral pleural effusions and mild bilateral underlying edema and/or infiltrates. Brown spect resolving CHF exacerbation. Correlate clinically.
[2020-08-31] MEDS: PANTOPRAZOLE 40 MG/10 ML VIAL IVP SCH ×2 (08:59→21:14)
[2020-08-31] MEDS: LEVOFLOXACIN 250 MG TAB PO SCH (09:00)
[2020-08-31] MEDS: DULoxetine HCL 60 MG CAPSULE.DR PO SCH (09:00)
[2020-08-31] MEDS: TAMSULOSIN 0.4 MG CAP.ER.24H PO SCH (09:00)
[2020-08-31] MEDS: HEPARIN SODIUM,PORCINE/PF 5,000 UNIT/0.5 ML SYRINGE SQ SCH ×2 (09:00→21:14)
[2020-08-31] MEDS: busPIRone HCl 10 MG TAB PO SCH ×2 (09:00→21:14)
[2020-08-31] MEDS: SODIUM FERRIC GLUCONAT-SUCROSE 125 MG in SODIUM CHLORIDE 0.9% 100 ML IVPB SCH (09:27)
[2020-08-31] MEDS: FLUTICASONE 50MCG/SPRAY NASAL 16GM EA NOSTRIL SCH (09:34)
[2020-08-31] MEDS ORDERED: FUROSEMIDE 10 MG/ML 4 ML VIAL IV STA (13:10)
--- NOTE | 2020-08-31 13:56 | P.PN ---
Subjective Progress Note Date: 08/31/20 69-year-old female presented to the ED with altered mental status. The patient was confused. The patient was found to be wandering around in [place] in her apartment.. The patient was able to answer questions upon frequent questionings. The patient's was complaining of some shortness of breath. E ssentially the history was limited and patient himself was very poor in her history providing ability. Pupils are constricted. She was found to have anion gap metabolic acidosis with elevated lactic acid level. White cell count was 36. Chest x-ray showed normal pulmonary infiltrates. Aspiration was considered and the patient was given Levaquin. The patient was also found to have an acute kidney injury in the creatinine was up to 6.5. He was 77 and the patient has anion gap metabolic acidosis with a serum bicarb of 12. The blood gas showed a pH of 7.25 with a pCO2 of 31 and pO2 of 69 and this was on FiO2 of 45%. The patient also had +1 bilirubin and +1 protein and her UA, negative for any infection, urine toxin was positive for opiates, the COVID 19 testing was negative. The patient was started on IV fluids and currently the patient is receiving normal saline at the rate of 130 mL an hour. The patient was given a dose of Levaquin in the emergency department. She was placed also on Levaquin. CAT scan of the brain showed mild patchy burden of chronic small vessel ischemic disease. No acute abnormalities noted. The ultrasound the kidneys showed no evidence of hydronephrosis. The patient is known to have RA and hypertension. The patient is currently on 10 L by nasal cannula to maintain saturation above 90%. Overnight, the patient was given IV fluids and the patient was also given bicarb infusion after being given normal saline. The patient was seen by nephrology. Renal function is improving and the patient is producing adequate amount of urine output. Oxygenation is still impaired and the patient on 10 L of oxygen by nasal cannula. She has crackling and there is still consideration of Covid 19 infection. On 08/28/2020 the patient is looking improved compared to yesterday. The patient is currently on 8 L of oxygen by nasal cannula. Her white cell count is improved. The patient is still on Levaquin. Computed tomography scan of the chest was done and showed some limited bibasilar pulmonary infiltrates. Overall CAT scan picture was limited due to lack of contrast. Otherwise, the patient is receiving IV fluids. The renal function continues to improve. The patient is producing urine output. Nephrology is on the case. The white cell count of 17.7 which is improved. Creatinine is down to 1.3. The SARS Cov2 d antibodies were negative and the rapid PCR was also negative. Computed tomography scan of the neck was also unremarkable. The blood culture is negative. 08/29/2020 patient remains somewhat confused, but appears to be in no acute distress, breathing comfortably, she is currently on 6 L of oxygen her pulse ox of 93-94%, she is afebrile, denies any chest discomfort, lung sounds reveal bibasilar crackles, no wheezing, no rhonchi, she had no fever or chills, today's labs reviewed showing stable white count of 17.5, hemoglobin of 9.7, electrolytes within normal limits, BUN is 16 creatinine 0.8, urinalysis showed no definite sign of infection, patient tested negative for coronavirus, she remains on Levaquin for possibility of aspiration related pneumonia, no recent chest x-ray, no acute events overnight. No cough, hemoptysis. On 08/30/2020 patient seen in follow-up on medical surgical floor, her mentation is much improved, she is oriented to person, place and time, she is much more coherent, and seems to have definitely improved, no confusion or agitation, she is quite comfortable, she does not remember what brought her to the hospital, but she remembers being agitated in the emergency department, denies any worsening dyspnea, she remains 4 L of oxygen her pulse ox is 94%, she is afebrile, hemodynamically patient is stable. Today's follow-up chest x-ray shows some interval worsening with diffuse interstitial infiltrates and left greater than right basilar airspace disease. Clinically she remains stable, no completes of chest pain, only occasional cough, lung sounds reveal bibasilar crackles, today's labs have been reviewed, white blood cell count is 18.5, hemoglobin is 10.3, electrolytes and renal profile are stable on today's labs, creatinine is improved, and is at 0.78, patient continues on IV fluids at 100 seen at 50 ML per hour, she is tolerating oral intake, no nausea vomiting or diarrhea. She remains on Levaquin for antibiotic coverage, vital signs have been stable, she's had no fever or chills. 08/31/2020, the patient is resting comfortably in bed. She did have a component of delirium and she was also seen by psychiatry. Overall, I would say she is gradually improving and today she was noted to be on 5 L about 2 by nasal cannula with a pulse is ranging between 90 and 92%. No fever. No chills. She remains on Levaquin. This is covering for an underlying pneumonia, possibly of an aspiration type. Her Covid 19 testing came back negative both by PCR and antibodies were also negative. She is afebrile. Her lungs are still showing crackles. Repeat chest x-ray was done that showed improvement in the bilateral interstitial infiltrates. The white cell count of 12.8. Hemoglobin is 10.3. Electrolytes are all normal. The blood cultures of been negative for now. The patient is on Levaquin. The patient is also on IV fluids at [facility]. Lasix will be given a dose of 40 mg IV 1. Monitor fluid balance. Objective - Vital Signs Vital signs: Vital Signs Temp 97.6 F 08/31/20 10:44 Pulse 75 08/31/20 10:44 Resp 18 08/31/20 10:44 BP 131/75 08/31/20 10:44 Pulse Ox 90 L 08/31/20 10:44 Intake & Output 08/30/20 08/31/20 08/31/20 18:59 06:59 18:59 Intake Total 100 Output Total 1000 900 Balance -1000 -800 Intake: Oral 100 Output: Urine 1000 900 Uretheral (Marie) 500 Other: Voiding Method Indwelling Catheter # Voids 600 # Bowel Movements 1 - Exam General appearance: alert, in no apparent distress Head exam: Present: atraumatic, normocephalic Eye exam: Present: normal appearance, PERRL, EOMI. Absent: nystagmus ENT exam: Present: mucous membranes dry Neck exam: Present: normal inspection. Absent: tenderness, meningismus Respiratory exam: Present: normal lung sounds bilaterally, there is scattered rhonchi and scattered expiratory wheezes heard throughout the lung bases bilaterally Cardiovascular Exam: Present: regular rate, normal rhythm GI/Abdominal exam: Present: soft. Absent: tenderness Extremities exam: Present: normal inspection Neurological exam: Present: alert, oriented X3, CN II-XII intact, other (Occasionally needs to be redirected or re asked questions). Absent: motor sensory deficit Psychiatric exam: Present: normal affect, normal mood Skin exam: Present: normal color - Labs CBC & Chem 7: 08/31/20 07:17 08/31/20 07:17 Labs: Abnormal Lab Results - Last 24 Hours (Table) 08/31/20 08/31/20 Range/Units 07:17 07:17 WBC 12.8 H (3.8-10.6) k/uL RBC 3.23 L (3.80-5.40) m/uL Hgb 10.3 L (11.4-16.0) gm/dL Hct 31.1 L (34.0-46.0) % Neutrophils # 9.4 H (1.3-7.7) k/uL Glucose 102 H (74-99) mg/dL Calcium 8.2 L (8.4-10.2) mg/dL Microbiology - Last 24 Hours (Table) 08/30/20 09:59 Blood Culture - Preliminary Blood No Growth after 24 hours 08/26/20 16:37 Blood Culture - Preliminary Blood No Growth after 96 hours Assessment and Plan Plan: 1 altered mental status. In addition the patient has a component of metabolic encephalopathy secondary to acute kidney injury/renal failure. Clinically improving. The patient was seen by psychiatry and the patient was told to have a component of delirium. I will consider the mental status is improved cons iderably and the patient is making better since without any focal neurological deficits. 2 acute kidney injury , with secondary metabolic acidosis , recovered 3 acute hypoxic respiratory failure with bilateral pulmonary infiltrates involving the lung bases, consider underlying aspiration. this computed tomography scan also showing bilateral lower lobe pulmonary infiltrates. The patient is currently on 5 L by nasal cannula. The oxygenation in general is improved. The computed tomography scan is showing some lower lobe pulmonary infiltration. Patient is on Levaquin. There may be a component of pulmonary vessel congestion and interstitial edema. The patient will be given diuretics for now. 4 GI bleed is suspected and the patient some coffee-ground emesis and the patient is considered to have an underlying upper GI bleeding, stable hemoglobin , and hemoglobin has remained stable over the past several days. 5 Arthritis 6 hypertension 7 depression 8 acute leukocytosis, improving Plan Covid 19 testing by PCR was negative COVID 19 antibodies was also negative IV fluids will be switched to KVO. Oxygen 5L per minute nasal cannula white cell count is improving and the cultures are negative Continue current antibiotic coverage with Levaquin Lasix 40 mg IV 1. Monitor electrolytes Mental status is gradually improving. We'll continue to follow
--- NOTE | 2020-08-31 16:41 | P.PN ---
Subjective Progress Note Date: 08/31/20 Principal diagnosis: Altered mental status, acute kidney injury, bibasilar pneumonia, possibly aspiration related 69-year-old female presented to the ED with altered mental status. The patient was confused. The patient was found to be wandering around in [place] in her apartment.. The patient was able to answer questions upon frequent questionings. The patient's was complaining of some shortness of breath. Essentially the history was limited and patient himself was very poor in her history providing ability. Pupils are constricted. She was found to have anion gap metabolic acidosis with elevated lactic acid level. White cell count was 36. Chest x-ray showed normal pulmonary infiltrates. Aspiration was considered and the patient was given Levaquin. The patient was also found to have an acute kidney injury in the creatinine was up to 6.5. He was 77 and the patient has anion gap metabolic acidosis with a serum bicarb of 12. The blood gas showed a pH of 7.25 with a pCO2 of 31 and pO2 of 69 and this was on FiO2 of 45%. The patient also had +1 bilirubin and +1 protein and her UA, negative for any infection, urine toxin was positive for opiates, the COVID 19 testing was negative. The patient was started on IV fluids and currently the patient is re ceiving normal saline at the rate of 130 mL an hour. The patient was given a dose of Levaquin in the emergency department. She was placed also on Levaquin. CAT scan of the brain showed mild patchy burden of chronic small vessel ischemic disease. No acute abnormalities noted. The ultrasound the kidneys showed no evidence of hydronephrosis. The patient is known to have RA and hypertension. The patient is currently on 10 L by nasal cannula to maintain saturation above 90%. Overnight, the patient was given IV fluids and the patient was also given bicarb infusion after being given normal saline. The patient was seen by nephrology. Renal function is improving and the patient is producing adequate amount of urine output. Oxygenation is still impaired and the patient on 10 L of oxygen by nasal cannula. She has crackling and there is still consideration of Covid 19 infection. 08/30/2020 patient seen in follow-up on medical surgical floor, her mentation is much improved, she is oriented to person, place and time, she is much more coherent, and seems to have definitely improved, no confusion or agitation, she is quite comfortable, she does not remember what brought her to the hospital, but she remembers being agitated in the emergency department, denies any worsening dyspnea, she remains 4 L of oxygen her pulse ox is 94%, she is afebrile, hemodyn amically patient is stable. Today's follow-up chest x-ray shows some interval worsening with diffuse interstitial infiltrates and left greater than right basilar airspace disease. Clinically she remains stable, no completes of chest pain, only occasional cough, lung sounds reveal bibasilar crackles, today's labs have been reviewed, white blood cell count is 18.5, hemoglobin is 10.3, electrolytes and renal profile are stable on today's labs, creatinine is improved, and is at 0.78, patient continues on IV fluids at 100 seen at 50 ML per hour, she is tolerating oral intake, no nausea vomiting or diarrhea. She remains on Levaquin for antibiotic coverage, vital signs have been stable, she's had no fever or chills. 08/31/2020 Patient is seen and evaluated resting comfortably in bed; patient remains alert oriented 3. She did have a component of delirium and she was also seen by psychiatry. Patient is currently on 5 L O2 by nasal cannula with a pulse is ranging between 90 and 92%. No fever. No chills. She remains on Levaquin for an underlying pneumonia, possibly of an aspiration type. Her Covid 19 testing came back negative both by PCR and antibodies were also negative. She is afebrile. Her lungs are still showing crackles. Repeat chest x-ray was done that showed improvement in the bilateral interstitial infiltrates. The white cell count of 12.8. Hemoglobin is 10.3. Electrolytes are all normal. The blood cultures of been negative for now. The patient is on Levaquin. The patient is also on IV fluids at [facility]. Lasix will be given a dose of 40 mg IV 1. Monitor fluid balance. Objective - Vital Signs Vital signs: Vital Signs Temp 97.8 F 08/31/20 05:45 Pulse 81 08/31/20 05:45 Resp 20 08/31/20 05:45 BP 153/81 08/31/20 05:45 Pulse Ox 91 L 08/31/20 05:45 Intake & Output 08/30/20 08/31/20 08/31/20 18:59 06:59 18:59 Intake Total 100 Output Total 1000 900 Balance -1000 -800 Intake: Oral 100 Output: Urine 1000 900 Uretheral (Marie) 500 Other: Voiding Method Indwelling Catheter # Voids 600 # Bowel Movements 1 - Exam GENERAL: The patient is pleasantly confused oriented 1, not in any acute distress. Well developed, well nourished. HEENT: Restricted pupils nonreactive to light. EOMI. No scleral icterus. No conjunctival pallor. Normocephalic, atraumatic. No pharyngeal erythema. No thyromegaly. CARDIOVASCULAR: S1 and S2 present. No murmurs, rubs, or gallops. PULMONARY: Chest is clear to auscultation, no wheezing or crackles. A few scatt ered rhonchi noted bilaterally ABDOMEN: Soft, nontender, nondistended, normoactive bowel sounds. No palpable organomegaly. MUSCULOSKELETAL: No joint swelling or deformity. EXTREMITIES: No cyanosis, clubbing, or pedal edema. NEUROLOGICAL: All 4 limbs doesn't appear to have any focal deficits SKIN: No rashes. - Labs CBC & Chem 7: 08/31/20 07:17 08/31/20 07:17 Labs: Abnormal Lab Results - Last 24 Hours (Table) 08/30/20 08/30/20 08/31/20 Range/Units 09:59 09:59 07:17 WBC 18.5 H (3.8-10.6) k/uL RBC 3.33 L (3.80-5.40) m/uL Hgb 10.3 L (11.4-16.0) gm/dL Hct 32.5 L (34.0-46.0) % Neutrophils # (1.3-7.7) k/uL Glucose 102 H (74-99) mg/dL Calcium 8.3 L 8.2 L (8.4-10.2) mg/dL AST 50 H (14-36) U/L Total Protein 6.2 L (6.3-8.2) g/dL Albumin 3.3 L (3.5-5.0) g/dL 08/31/20 Range/Units 07:17 WBC 12.8 H (3.8-10.6) k/uL RBC 3.23 L (3.80-5.40) m/uL Hgb 10.3 L (11.4-16.0) gm/dL Hct 31.1 L (34.0-46.0) % Neutrophils # 9.4 H (1.3-7.7) k/uL Glucose (74-99) mg/dL Calcium (8.4-10.2) mg/dL AST (14-36) U/L Total Protein (6.3-8.2) g/dL Albumin (3.5-5.0) g/dL Microbiology - Last 24 Hours (Table) 08/26/20 16:37 Blood Culture - Preliminary Blood No Growth after 96 hours Assessment and Plan Assessment: -possible aspiration pneumonia for which patient was started on levofloxacin -Hyperkalemia due to renal failure, improving -Leukocytosis, trending down white blood count today is 17.5 -Altered mental status, toxic encephalopathy probably because of opiate overdose. Patient remains confused and agitated at times. We will use Haldol for agitation. Psychiatry following -Acute upper GI bleed secondary to possible gastritis, continue IV Protonix and Zofran as needed for nausea and GI following, no further emesis or bleeding noted -Anion gap metabolic acidosis probably lactic acidosis which is improved with no clear evidence of sepsis at this time -Acute renal failure on chronic kidney disease stage II acute renal failure secondary to prerenal azotemia maybe even acute tubular necrosis , removing indwelling Marie catheter monitor for retention. ultrasound of the kidneys showing a slightly small left kidney with no evidence of hydronephrosis noted -Hypertension -Patient appears to have history of rheumatoid arthritis given her medication list -Depression Plan: Continue with current medications and IV antibiotics. Patient is maintained on normal saline. Nephrology following. Psychiatry consulted and following. Pulmonary also following and patient is requiring 6 L of oxygen high flow and continues to be dyspneic. Weaning FiO2 as tolerated. Removing indwelling Marie catheter and monitor for retention. Repeat Covid testing and PCR and antibodies have been negative. Patient continues to be confused. Will repeat a.m. labs and continue to monitor closely.
--- NOTE | 2020-08-31 17:17 | PN ---
PROGRESS NOTE The patient is seen for followup for acute kidney injury. Her renal function has improved significantly with IV hydration. She is maintained on saline at about 50 mL an hour. Creatinine is down to 0.79 with peak at 6.5 on initial admission. The patient had an indwelling Marie catheter. A 24 hour urine output documented at about 1900 mL. PHYSICAL EXAMINATION: Blood pressure 131/75, heart rate 75 per minute, she is afebrile. Examination of the heart S1, S2. Examination of lungs, decreased breath sounds at bases. Abdomen is soft, nontender. Examination of lower extremities shows no evidence of edema. C[employer]ING exam grossly intact. LABS: Show sodium 139, potassium 3.6, chloride 107, BUN 10, serum creatinine 0.79. ASSESSMENT: 1. Acute kidney injury, prerenal, currently significantly improved. 2. Mild hyperkalemia associated with acute kidney injury, metabolic acidosis, enalapril and Bactrim, now resolved. 3. Metabolic acidosis associated with acute kidney injury, status post bicarb drip. 4. Benign hypertension. 5. Altered mentation, improving. 6. Anemia with evidence of iron deficiency maintained on IV iron. PLAN: Can discontinue IV fluids and encourage increased oral intake. MMODL / IJN: [id number] /
[2020-08-31] MEDS: SODIUM CHLORIDE 0.9% 1,000 ML IV SCH (17:40)
[2020-08-31] MEDS: OLANZapine 5 MG TAB PO SCH (21:14)
[2020-08-31] MEDS: ACETAMINOPHEN TAB 325 MG TAB PO PRN (21:15)
[2020-09-01] MEDS: PANTOPRAZOLE 40 MG/10 ML VIAL IVP SCH ×2 (08:51→20:20)
[2020-09-01] MEDS: DULoxetine HCL 60 MG CAPSULE.DR PO SCH (08:51)
[2020-09-01] MEDS: busPIRone HCl 10 MG TAB PO SCH ×2 (08:51→20:21)
[2020-09-01] MEDS: TAMSULOSIN 0.4 MG CAP.ER.24H PO SCH (08:51)
[2020-09-01] MEDS: LEVOFLOXACIN 500 MG TAB PO SCH (08:51)
[2020-09-01] MEDS: FLUTICASONE 50MCG/SPRAY NASAL 16GM EA NOSTRIL SCH (08:51)
[2020-09-01] MEDS: HEPARIN SODIUM,PORCINE/PF 5,000 UNIT/0.5 ML SYRINGE SQ SCH ×2 (08:52→20:21)
[2020-09-01] MEDS: SODIUM FERRIC GLUCONAT-SUCROSE 125 MG in SODIUM CHLORIDE 0.9% 100 ML IVPB SCH (09:27)
[2020-09-01] MEDS ORDERED: FUROSEMIDE 10 MG/ML 4 ML VIAL IV STA (11:56)
--- NOTE | 2020-09-01 13:12 | PN ---
PROGRESS NOTE Patient is seen for followup for acute kidney injury. Her renal function has improved. She is currently stable. Creatinine down to 0.79 from 6.4 on initial admission. Currently patient is comfortable. She is maintained on IV iron. Denies any significant complaints. She was maintained on fluids which are now discontinued. PHYSICAL EXAMINATION: On examination today, blood pressure 91/63, earlier it was 114/70; heart rate 70 to 90 per minute. She is afebrile. She is maintained on high-flow oxygen via nasal cannula. No evidence of edema lower extremities. MOLDER MACHINE exam grossly intact. Patient is hard of hearing. LAB: Show sodium 139, potassium 3.6, chloride 107, BUN 10, serum creatinine 0.79. ASSESSMENT: 1. Acute kidney injury, prerenal, currently improved. 2. Mild hyperkalemia associated with acute kidney injury, metabolic acidosis, TATO inhibitors and Bactrim, now resolved. 3. Benign hypertension. 4. Iron deficiency, maintained on IV iron. 5. Metabolic acidosis status post IV bicarb drip. 6. Altered mentation, now improved. PLAN: Repeat another dose of Lasix today. MMODL / IJN: [id number] /
--- NOTE | 2020-09-01 15:47 | P.PN ---
Subjective Progress Note Date: 09/01/20 Principal diagnosis: Altered mental status, acute kidney injury, bibasilar pneumonia, possibly aspiration related 69-year-old female presented to the ED with altered mental status. The patient was confused. The patient was found to be wandering around in [place] in her apartment.. The patient was able to answer questions upon frequent questionings. The patient's was complaining of some shortness of breath. Essentially the history was limited and patient himself was very poor in her history providing ability. Pupils are constricted. She was found to have anion gap metabolic acidosis with elevated lactic acid level. White cell count was 36. Chest x-ray showed normal pulmonary infiltrates. Aspiration was considered and the patient was given Levaquin. The patient was also found to have an acute kidney injury in the creatinine was up to 6.5. He was 77 and the patient has anion gap metabolic acidosis with a serum bicarb of 12. The blood gas showed a pH of 7.25 with a pCO2 of 31 and pO2 of 69 and this was on FiO2 of 45%. The patient also had +1 bilirubin and +1 protein and her UA, negative for any infection, urine toxin was positive for opiates, the COVID 19 testing was negative. The patient was started on IV fluids and currently the patient is rec eiving normal saline at the rate of 130 mL an hour. The patient was given a dose of Levaquin in the emergency department. She was placed also on Levaquin. CAT scan of the brain showed mild patchy burden of chronic small vessel ischemic disease. No acute abnormalities noted. The ultrasound the kidneys showed no evidence of hydronephrosis. The patient is known to have RA and hypertension. The patient is currently on 10 L by nasal cannula to maintain saturation above 90%. Overnight, the patient was given IV fluids and the patient was also given bicarb infusion after being given normal saline. The patient was seen by nephrology. Renal function is improving and the patient is producing adequate amount of urine output. Oxygenation is still impaired and the patient on 10 L of oxygen by nasal cannula. She has crackling and there is still consideration of Covid 19 infection. On 08/28/2020 the patient is looking improved compared to yesterday. The patient is currently on 8 L of oxygen by nasal cannula. Her white cell count is improved. The patient is still on Levaquin. Computed tomography scan of the chest was done and showed some limited bibasilar pulmonary infiltrates. Overall CAT scan picture was limited due to lack of contrast. Otherwise, the patient is receiving IV fluids. The renal function continues to improve. The patient is producing urine output. Nephrology is on the case. The white cell count of 17.7 which is improved. Creatinine is down to 1.3. The SARS Cov2 d antibodies were negative and the rapid PCR was also negative. Computed tomography scan of the neck was also unremarkable. The blood culture is negative. 08/29/2020 patient remains somewhat confused, but appears to be in no acute distress, breathing comfortably, she is currently on 6 L of oxygen her pulse ox of 93-94%, she is afebrile, denies any chest discomfort, lung sounds reveal bibasilar crackles, no wheezing, no rhonchi, she had no fever or chills, today's labs reviewed showing stable white count of 17.5, hemoglobin of 9.7, electrolytes within normal limits, BUN is 16 creatinine 0.8, urinalysis showed no definite sign of infection, patient tested negative for coronavirus, she remains on Levaquin for possibility of aspiration related pneumonia, no recent chest x-ray, no acute events overnight. No cough, hemoptysis. On 08/30/2020 patient seen in follow-up on medical surgical floor, her mentation is much improved, she is oriented to person, place and time, she is much more coherent, and seems to have definitely improved, no confusion or agitation, she is quite comfortable, she does not remember what brought her to the hospital, but she remembers being agitated in the emergency department, denies any worsening dyspnea, she remains 4 L of oxygen her pulse ox is 94%, she is afebrile, hemodynamically patient is stable. Today's follow-up chest x-ray shows some interval worsening with diffuse interstitial infiltrates and left greater than right basilar airspace disease. Clinically she remains stable, no completes of chest pain, only occasional cough, lung sounds reveal bibasilar crackles, today's labs have been reviewed, white blood cell count is 18.5, he moglobin is 10.3, electrolytes and renal profile are stable on today's labs, creatinine is improved, and is at 0.78, patient continues on IV fluids at 100 seen at 50 ML per hour, she is tolerating oral intake, no nausea vomiting or diarrhea. She remains on Levaquin for antibiotic coverage, vital signs have been stable, she's had no fever or chills. On 09/01/2020 patient seen in follow-up on medical surgical floor, she is much more awake and alert, she is oriented 3, she remains generally weak, but she is improving, she requires assistance with getting up out of bed and ambulating to the bathroom, no confusion, agitation, she remains on supplemental oxygen, currently at 4 L, and her pulse ox is 90-91%, she's had no fever or chills, lung sounds are diminished with some basilar crackles, no new chest x-ray but yesterday's chest x-ray showed diffuse interstitial infiltrates and left greater than right basilar airspace disease, with small pleural effusions. Patient was given a dose of Lasix yesterday, and again today, she is a -2.6 L fluid balance over the last 24 hours, Marie catheter is in place, today's labs have been reviewed with blood cell count is trending down down to 12.8, hemoglobin is 10.3, electrolytes and renal profile were within normal limits. Patient is requesting to go home tomorrow if possible, she is being encouraged to deep breathe and cough and use incentive spirometer, she remains on antibiotic coverage in the form of Levaquin 500 mg daily. Objective - Vital Signs Vital signs: Vital Signs Temp 97.6 F 09/01/20 14:00 Pulse 56 L 09/01/20 14:00 Resp 18 09/01/20 14:00 BP 111/68 09/01/20 14:00 Pulse Ox 90 L 09/01/20 14:00 Intake & Output 08/31/20 09/01/20 09/01/20 18:59 06:59 18:59 Intake Total 600 Output Total 2200 400 Balance -2200 -400 600 Intake: Oral 600 Output: Urine 2200 400 Other: Voiding Method Indwelling Catheter Indwelling Catheter # Voids 400 # Bowel Movements 1 - Exam GENERAL EXAM: Alert, pleasant, cooperative 69-year-old white female, much more awake and alert, and patient is oriented 3, and much less confused, no agitation currently on 4 L of oxygen the pulse ox of 93-94% comfortable in no apparent distress. HEAD: Normocephalic/atraumatic. EYES: Normal reaction of pupils, equal size. Conjunctiva pink, sclera white. NOSE: Clear with pink turbinates. THROAT: No erythema or exudates. NECK: No masses, no JVD, no thyroid enlargement, no adenopathy. CHEST: No chest wall deformity. Symmetrical expansion. LUNGS: Equal air entry with bibasilar crackles CVS: Regular rate and rhythm, normal S1 and S2, no gallops, no murmurs, no rubs ABDOMEN: Soft, nontender. No hepatosplenomegaly, normal bowel sounds, no guarding or rigidity. EXTREMITIES: No clubbing, no edema, no cyanosis, 2+ pulses and upper and lower extremities. MUSCULOSKELETAL: Muscle strength and tone normal. SPINE: No scoliosis or deformity SKIN: No rashes CENTRAL NERVOUS SYSTEM: Alert and oriented -3 No focal deficits, tone is normal in all 4 extremities. PSYCHIATRIC: Alert and oriented -3. Appropriate affect. Intact judgment and insight. - Labs CBC & Chem 7: 08/31/20 07:17 08/31/20 07:17 Labs: Microbiology - Last 24 Hours (Table) 08/30/20 09:59 Blood Culture - Preliminary Blood No Growth after 48 hours 08/26/20 16:37 Blood Culture - Preliminary Blood No Growth after 120 hours Assessment and Plan Plan: 1 altered mental status, significantly improved and this was due to metabolic encephalopathy secondary to acute kidney injury/renal failure. Clinically improving 2 acute kidney injury , with secondary metabolic acidosis , improving with adequate urine output and the creatinine is down to 0.8 3 acute hypoxic respiratory failure with bilateral pulmonary infiltrates involving the lung bases, consider underlying aspiration. this computed tomography scan also showing bilateral lower lobe pulmonary infiltrates. The patient is currently on 10 L by nasal cannula. The oxygenation in general is improved. The computed tomography scan is showing some lower lobe pulmonary infiltration. Patient is on Levaquin. 4 GI bleed is suspected and the patient some coffee-ground emesis and the patient is considered to have an underlying upper GI bleeding, stable hemoglobin 5 Arthritis 6 hypertension 7 depression 8 acute leukocytosis, improving Plan: Encouraged to deep breathing and cough and uses senna spirometer Agree with another dose of IV Lasix Follow-up labs, including CBC and BMP Clinically improving, mental status has improved Continue current antibiotic coverage Wean FiO2 Increase activity as tolerated Mentation has much improved, Vital signs are stable Cut back to KVO If continues to improve consider discharge in next 24-48 hours Time with Patient: Less than 30
[2020-09-01] MEDS: ALBUTEROL HFA INHALER INHALATION PRN ×2 (16:23→20:24)
--- NOTE | 2020-09-01 17:08 | P.PN ---
Subjective Progress Note Date: 09/01/20 Principal diagnosis: Altered mental status, acute kidney injury, bibasilar pneumonia, possibly aspiration related 69-year-old female presented to the ED with altered mental status. The patient was confused. The patient was found to be wandering around in [place] in her apartment.. The patient was able to answer questions upon frequent questionings. The patient's was complaining of some shortness of breath. Essentially the history was limited and patient himself was very poor in her history providing ability. Pupils are constricted. She was found to have anion gap metabolic acidosis with elevated lactic acid level. White cell count was 36. Chest x-ray showed normal pulmonary infiltrates. Aspiration was considered and the patient was given Levaquin. The patient was also found to have an acute kidney injury in the creatinine was up to 6.5. He was 77 and the patient has anion gap metabolic acidosis with a serum bicarb of 12. The blood gas showed a pH of 7.25 with a pCO2 of 31 and pO2 of 69 and this was on FiO2 of 45%. The patient also had +1 bilirubin and +1 protein and her UA, negative for any infection, urine toxin was positive for opiates, the COVID 19 testing was negative. The patient was started on IV fluids and currently the patient is re ceiving normal saline at the rate of 130 mL an hour. The patient was given a dose of Levaquin in the emergency department. She was placed also on Levaquin. CAT scan of the brain showed mild patchy burden of chronic small vessel ischemic disease. No acute abnormalities noted. The ultrasound the kidneys showed no evidence of hydronephrosis. The patient is known to have RA and hypertension. The patient is currently on 10 L by nasal cannula to maintain saturation above 90%. Overnight, the patient was given IV fluids and the patient was also given bicarb infusion after being given normal saline. The patient was seen by nephrology. Renal function is improving and the patient is producing adequate amount of urine output. Oxygenation is still impaired and the patient on 10 L of oxygen by nasal cannula. She has crackling and there is still consideration of Covid 19 infection. 08/30/2020 patient seen in follow-up on medical surgical floor, her mentation is much improved, she is oriented to person, place and time, she is much more coherent, and seems to have definitely improved, no confusion or agitation, she is quite comfortable, she does not remember what brought her to the hospital, but she remembers being agitated in the emergency department, denies any worsening dyspnea, she remains 4 L of oxygen her pulse ox is 94%, she is afebrile, hemodyn amically patient is stable. Today's follow-up chest x-ray shows some interval worsening with diffuse interstitial infiltrates and left greater than right basilar airspace disease. Clinically she remains stable, no completes of chest pain, only occasional cough, lung sounds reveal bibasilar crackles, today's labs have been reviewed, white blood cell count is 18.5, hemoglobin is 10.3, electrolytes and renal profile are stable on today's labs, creatinine is improved, and is at 0.78, patient continues on IV fluids at 100 seen at 50 ML per hour, she is tolerating oral intake, no nausea vomiting or diarrhea. She remains on Levaquin for antibiotic coverage, vital signs have been stable, she's had no fever or chills. 08/31/2020 Patient is seen and evaluated resting comfortably in bed; patient remains alert oriented 3. She did have a component of delirium and she was also seen by psychiatry. Patient is currently on 5 L O2 by nasal cannula with a pulse is ranging between 90 and 92%. No fever. No chills. She remains on Levaquin for an underlying pneumonia, possibly of an aspiration type. Her Covid 19 testing came back negative both by PCR and antibodies were also negative. She is afebrile. Her lungs are still showing crackles. Repeat chest x-ray was done that showed improvement in the bilateral interstitial infiltrates. The white cell count of 12.8. Hemoglobin is 10.3. Electrolytes are all normal. The blood cultures of been negative for now. The patient is on Levaquin. The patient is also on IV fluids at [facility]. Lasix will be given a dose of 40 mg IV 1. Monitor fluid balance. 09/01/2020 Patient is seen and evaluated in follow-up on medical surgical floor, she is much more awake and alert, she is oriented 3, she remains generally weak; requires assistance with getting up out of bed and ambulating to the bathroom, no confusion, agitation, she remains on supplemental oxygen, currently at 4 L, and her pulse ox is 90-91%, she's had no fever or chills, lung sounds are diminished with some basilar crackles Chest x-ray from yesterday showed diffuse interstitial infiltrates and left greater than right basilar airspace disease, with small pleural effusions. Patient received a dose of Lasix yesterday, and again today, she is a -2.6 L fluid balance over the last 24 hours, Marie catheter is in place, today's labs have been reviewed with blood cell count is trending down down to 12.8, hemoglobin is 10.3, electrolytes and renal profile were within normal limits. Patient is requesting to go home tomorrow if possible, she is being encouraged to deep breathe and cough and use incentive spirometer, she remains on antibiotic coverage in the form of Levaquin 500 mg daily. Objective - Vital Signs Vital signs: Vital Signs Temp 97.6 F 09/01/20 10:00 Pulse 99 09/01/20 10:00 Resp 18 09/01/20 10:00 BP 91/63 09/01/20 10:00 Pulse Ox 91 L 09/01/20 10:00 Intake & Output 08/31/20 09/01/20 09/01/20 18:59 06:59 18:59 Intake Total 300 Output Total 2200 400 Balance -2200 -400 300 Intake: Oral 300 Output: Urine 2200 400 Other: Voiding Method Indwelling Catheter Indwelling Catheter # Voids 400 # Bowel Movements 1 - Exam GENERAL: The patient is pleasantly confused oriented 1, not in any acute distress. Well developed, well nourished. HEENT: Restricted pupils nonreactive to light. EOMI. No scleral icterus. No conjunctival pallor. Normocephalic, atraumatic. No pharyngeal erythema. No thyromegaly. CARDIOVASCULAR: S1 and S2 present. No murmurs, rubs, or gallops. PULMONARY: Chest is clear to auscultation, no wheezing or crackles. A few scattered rhonchi noted bilaterally ABDOMEN: Soft, nontender, nondistended, normoactive bowel sounds. No palpable organomegaly. MUSCULOSKELETAL: No joint swelling or deformity. EXTREMITIES: No cyanosis, clubbing, or pedal edema. NEUROLOGICAL: All 4 limbs doesn't appear to have any focal deficits SKIN: No rashes. - Labs CBC & Chem 7: 08/31/20 07:17 08/31/20 07:17 Labs: Microbiology - Last 24 Hours (Table) 08/26/20 16:37 Blood Culture - Preliminary Blood No Growth after 120 hours 08/30/20 09:59 Blood Culture - Preliminary Blood No Growth after 24 hours Assessment and Plan Assessment: -possible aspiration pneumonia for which patient was started on levofloxacin -Hyperkalemia due to renal failure, improving -Leukocytosis, trending down white blood count today is 17.5 -Altered mental status, toxic encephalopathy probably because of opiate overd ose. Patient remains confused and agitated at times. We will use Haldol for agitation. Psychiatry following -Acute upper GI bleed secondary to possible gastritis, continue IV Protonix and Zofran as needed for nausea and GI following, no further emesis or bleeding noted -Anion gap metabolic acidosis probably lactic acidosis which is improved with no clear evidence of sepsis at this time -Acute renal failure on chronic kidney disease stage II acute renal failure secondary to prerenal azotemia maybe even acute tubular necrosis , removing indwelling Marie catheter monitor for retention. ultrasound of the kidneys showing a slightly small left kidney with no evidence of hydronephrosis noted -Hypertension -Patient appears to have history of rheumatoid arthritis given her medication list -Depression Plan: Continue with current medications and IV antibiotics. Patient is maintained on normal saline. Nephrology following. Psychiatry consulted and following. Pulmonary also following and patient is requiring 6 L of oxygen high flow and continues to be dyspneic. Weaning FiO2 as tolerated. Removing indwelling Marie catheter and monitor for retention. Repeat Covid testing and PCR and antibodies have been negative. Patient continues to be confused. Will repeat a.m. labs and continue to monitor closely.
[2020-09-01] MEDS: SODIUM CHLORIDE 0.9% 1,000 ML IV SCH (18:05)
[2020-09-01] MEDS: OLANZapine 5 MG TAB PO SCH (20:21)
[2020-09-02] MEDS: ALBUTEROL HFA INHALER INHALATION PRN ×4 (07:40→21:02)
[2020-09-02] MEDS: PANTOPRAZOLE 40 MG/10 ML VIAL IVP SCH ×2 (08:30→20:05)
[2020-09-02] MEDS: HEPARIN SODIUM,PORCINE/PF 5,000 UNIT/0.5 ML SYRINGE SQ SCH ×2 (08:30→20:05)
[2020-09-02] MEDS: FLUTICASONE 50MCG/SPRAY NASAL 16GM EA NOSTRIL SCH (08:31)
[2020-09-02] MEDS: busPIRone HCl 10 MG TAB PO SCH ×2 (08:31→20:04)
[2020-09-02] MEDS: DULoxetine HCL 60 MG CAPSULE.DR PO SCH (08:31)
[2020-09-02] MEDS: TAMSULOSIN 0.4 MG CAP.ER.24H PO SCH (08:31)
[2020-09-02] MEDS: LEVOFLOXACIN 500 MG TAB PO SCH (08:31)
--- NOTE | 2020-09-02 09:00 | XR ---
EXAMINATION TYPE: XR chest 1V portable DATE OF EXAM: 09/02/2020 Comparison: 08/31/2020 Clinical History: 69-year-old female pneumonia Findings: Heart upper limits of normal in size. Mild hyperinflation. Patchy lower lung opacities show no signif icant change. Impression: COPD and patchy bibasilar infiltrates without significant change.
[2020-09-02] MEDS: SODIUM FERRIC GLUCONAT-SUCROSE 125 MG in SODIUM CHLORIDE 0.9% 100 ML IVPB SCH (11:35)
--- NOTE | 2020-09-02 13:34 | P.PN ---
Progress Note - Text Progress Note Date: 09/02/20 Interval History: Patient was seen today for psychiatric follow-up regarding patient's delirium. Patient has not been receiving Haldol when necessary's and has been, according to nurse. Nurse also claims that patient has been refusing to go to rehab and wants to go home. Patient was seen today sitting at the bedside on her care and was watching TV. She appeared to be more awake today and was more cooperative. She had an improvement in her train of thought. She was fairly persistent in being discharged back home today. She claims that she does not care about any risks about going home and spoke about her building at home. She claims that her mood is "fine" and denies any depression today. She answered most questions. She correctly stated her name and that she was in hospital and knew that today was August 2020 and knows her full name. She states that she is able to sleep a lot better now with the medications. She was asking about discharge today and appears to have poor insight into her need for rehab. At this time patient denies any suicidal or homical ideations, intent or plan. Patient denies any auditory, visual hallucinations. Patient denies any side effects from the medications and has been compliant with meds. Mental Status Exam: General Appearance: Patient appears to be stated age is alert, improvement in her concentration and is attempting to cooperate. Patient appears to have fair hygiene and grooming wearing hospital gown with improving eye contact. Behavior: Lying in bed with no agitation. Demanding discharge today. Speech: Patient's speech is fluent and nonpressured. Mood/Affect: She reports that her mood is "ok" and affect is constricted. Suicidality/Homicidality: Denies Perceptions: Denies any auditory or visual hallucinations. Though content/process: [place], poverty of content. Not endorsing any paranoia or delusions. Memory and concentration: Alert and oriented 3, improvement in her concentration. Judgment and insight: poor, improving mildly Assessment Delirium likely multiple etiologies including acute renal failure, electrolytes, possibly opiates, and infection, resolved. History of depression Plan: -At this time patient DOES NOT meet criteria for inpatient psychiatric admission. -Patient DOES NOT have decision making capacity at this time and is unable to reason through and communicate/appreciate the risks, benefits and alternatives to treatment. -Delirium precautions recommended with patient including - avoiding use of narcotics and [employer] HE[employer] NURSE [employer]IC[employer]ED PRACTICAL sedatives, limit anticholinergic medications when possible, frequent re-orientation, minimize use of restraints, open window shades during the day and close them at night -Would recommend the following medication changes/additions: Continue with BuSpar 10 mg twice a day and Cymbalta 60 mg daily as these are her home dose and medications. Continue with Haldol IM 2.5 mg IM q8prn for agitation. Continue with Zyprexa 5 mg qhs for psychosis/delirium/insomnia. -Communicated plan to patient's nurse -At this time psychiatry will sign off. -Please contact with any questions.
[2020-09-02 15:13] VITALS: BMI 20.5
--- NOTE | 2020-09-02 16:21 | P.PN ---
Subjective Progress Note Date: 09/02/20 69-year-old female presented to the ED with altered mental status. The patient was confused. The patient was found to be wandering around in [place] in her apartment.. The patient was able to answer questions upon frequent questionings. The patient's was complaining of some shortness of breath. Es sentially the history was limited and patient himself was very poor in her history providing ability. Pupils are constricted. She was found to have anion gap metabolic acidosis with elevated lactic acid level. White cell count was 36. Chest x-ray showed normal pulmonary infiltrates. Aspiration was considered and the patient was given Levaquin. The patient was also found to have an acute kidney injury in the creatinine was up to 6.5. He was 77 and the patient has anion gap metabolic acidosis with a serum bicarb of 12. The blood gas showed a pH of 7.25 with a pCO2 of 31 and pO2 of 69 and this was on FiO2 of 45%. The patient also had +1 bilirubin and +1 protein and her UA, negative for any infection, urine toxin was positive for opiates, the COVID 19 testing was negative. The patient was started on IV fluids and currently the patient is receiving normal saline at the rate of 130 mL an hour. The patient was given a dose of Levaquin in the emergency department. She was placed also on Levaquin. CAT scan of the brain showed mild patchy burden of chronic small vessel ischemic disease. No acute abnormalities noted. The ultrasound the kidneys showed no evidence of hydronephrosis. The patient is known to have RA and hypertension. The patient is currently on 10 L by nasal cannula to maintain saturation above 90%. Overnight, the patient was given IV fluids and the patient was also given bicarb infusion after being given normal saline. The patient was seen by nephrology. Renal function is improving and the patient is producing adequate amount of urine output. Oxygenation is still impaired and the patient on 10 L of oxygen by nasal cannula. She has crackling and there is still consideration of Covid 19 infection. 09/02/2020 Patient is seen and evaluated and follow-up in mentation is improved and patient is more alert and oriented. Patient is being followed by pulmonary along with nephrology and was seen and evaluated by psychiatry. Patient was deemed unable to make appropriate decisions and social work is following with the possibility of needing to obtain guardianship as she lives alone. Patient does have friends and family that live nearby that sporadically check on her but not on a consistent basis. Patient continues to require or liters high flow nasal cannula with oxygen saturation of 94%. Discussed with nursing staff about weaning FiO2 as tolerated and increasing activity as well. Discontinue indwelling Marie catheter and monitor for signs of retention. Patient is very persistent on wanting to leave and go home. Chest x-ray today shows patchy bibasilar infiltrates without significant change. Review of systems: Constitutional: No reports of fatigue, fever, or chills Cardiovascular: No reports of chest pain or palpitations Respiratory: No reports of shortness of breath or cough GI: No reports of nausea, vomiting, or diarrhea : No reports of dysuria or retention Neurovascular: No reports of weakness or numbness All medications have been reviewed Active Medications Acetaminophen (Acetaminophen Tab 325 Mg Tab) 650 mg PO Q4HR PRN PRN Reason: Fever and/ or Pain Last Admin: 08/31/20 21:15 Dose: 650 mg Documented by: Albuterol Sulfate (Albuterol Hfa Inhaler) 2 puff INHALATION RT-Q4H PRN PRN Reason: shortness of breath Last Admin: 09/02/20 10:51 Dose: 2 puff Documented by: Buspirone HCl (Buspirone Hcl 10 Mg Tab) 10 mg PO BID [facility] Last Admin: 09/02/20 08:31 Dose: 10 mg Documented by: Duloxetine HCl (Duloxetine Hcl 60 Mg Capsule.Dr) 60 mg PO DAILY [facility] Last Admin: 09/02/20 08:31 Dose: 60 mg Documented by: Fluticasone Propionate (Fluticasone 50mcg/[place] Nasal 16gm) 2 spray EA NOSTRIL DAILY [facility] Last Admin: 09/02/20 08:31 Dose: 2 spray Documented by: Haloperidol Lactate (Haloperidol Lactate 5 Mg/Ml 1 Ml Vial) 2.5 mg IM Q8HR PRN PRN Reason: Agitation or Acute Psychosis Last Admin: 08/30/20 02:24 Dose: 2.5 mg Documented by: Heparin Sodium (Porcine) (Heparin Sodium,Porcine/Pf 5,000 Unit/0.5 Ml Syringe) 5,000 unit SQ Q12HR [facility] Last Admin: 09/02/20 08:30 Dose: 5,000 unit Documented by: Sodium Chloride (Saline 0.9%) 1,000 mls @ 20 mls/hr IV .Q24H [facility] Last Admin: 09/01/20 18:05 Dose: Not Given Documented by: Levofloxacin (Levofloxacin 500 Mg Tab) 500 mg PO DAILY [facility] Last Admin: 09/02/20 08:31 Dose: 500 mg Documented by: Miscellaneous Information (Pneumonia Protocol Utilized 1 Each [facility]) 1 each PO ONCE PRN PRN Reason: Per Protocol Olanzapine (Olanzapine 5 Mg Tab) 5 mg PO HS [facility] Last Admin: 09/01/20 20:21 Dose: 5 mg Documented by: Pantoprazole Sodium (Pantoprazole 40 Mg/10 Ml Vial) 40 mg IVP BID [facility] Last Admin: 09/02/20 08:30 Dose: 40 mg Documented by: Tamsulosin HCl (Tamsulosin 0.4 Mg Cap.Er.24h) 0.4 mg PO PC-BRKFST [facility] Last Admin: 09/02/20 08:31 Dose: 0.4 mg Documented by: Objective - Vital Signs Vital signs: Vital Signs Temp 98.3 F 09/02/20 10:00 Pulse 95 09/02/20 10:00 Resp 18 09/02/20 10:00 BP 104/69 09/02/20 10:00 Pulse Ox 94 L 09/02/20 10:00 Intake & Output 09/01/20 09/02/20 09/02/20 18:59 06:59 18:59 Intake Total 600 Output Total 1200 500 Balance -600 -500 Intake: Oral 600 Output: Urine 1200 500 Other: Voiding Method Indwelling Catheter Indwelling Catheter Indwelling Catheter # Voids 3 - Exam GENERAL: The patient is more alert and oriented 2-3, not in any acute distress. Well developed, well nourished. Temp is 98.3F, pulse is 95, respirations are 18, blood pressures 104/69, oxygen saturation is 94% on 4 L high flow nasal cannula HEENT: PERRLA. EOMI. No scleral icterus. No conjunctival pallor. Normocephalic, atraumatic. No pharyngeal erythema. No thyromegaly. CARDIOVASCULAR: S1 and S2 muffled. PULMONARY: diminished breath sounds bilaterally with A few scattered rhonchi noted bilaterally ABDOMEN: Soft, nontender, nondistended, normoactive bowel sounds. No palpable organomegaly. MUSCULOSKELETAL: No joint swelling or deformity. EXTREMITIES: No cyanosis, clubbing, or pedal edema. NEUROLOGICAL: Able to move all 4 extremities, no focal deficits noted SKIN: No rashes. - Labs CBC & Chem 7: 08/31/20 07:17 08/31/20 07:17 Labs: Microbiology - Last 24 Hours (Table) 08/26/20 16:37 Blood Culture - Final Blood No Growth after 144 hours 08/30/20 09:59 Blood Culture - Preliminary Blood No Growth after 48 hours Assessment and Plan Assessment: -possible aspiration pneumonia -Hyperkalemia due to renal failure, improving -Leukocytosis, improving -Altered mental status, toxic encephalopathy possibly because of opiate overdose -Acute upper GI bleed secondary to possible gastritis -Anion gap metabolic acidosis probably lactic acidosis which is improved with no clear evidence of sepsis at this time -Acute renal failure on chronic kidney disease stage II acute renal failure secondary to prerenal azotemia maybe even acute tubular necrosis -Hypertension -history of rheumatoid arthritis -Depression Plan: Continue with current medications and antibiotics. Continue to wean FiO2 as tolerated. Remove indwelling Marie catheter and monitor for retention. Multiple medical consultations following including nephrology, pulmonary, and psychiatry. Social work also following as patient is unable to make appropriate decisions regarding her care and safety for safe discharge plan and will need to review further options. Patient continues to be on high flow nasal cannula at 4 L and a prescription was provided for home oxygen to case management. Due to multiple complex medical issues, prognosis is guarded. Further recommendations to follow based on the clinical course of the patient.
[2020-09-02] MEDS: valACYclovir HCL 1,000 MG TABLET PO SCH ×2 (17:19→20:04)
[2020-09-02] MEDS: SODIUM CHLORIDE 0.9% 1,000 ML IV SCH (18:46)
[2020-09-02] MEDS: ACETAMINOPHEN TAB 325 MG TAB PO PRN (20:04)
[2020-09-02] MEDS: OLANZapine 5 MG TAB PO SCH (20:04)
[2020-09-03] MEDS: PANTOPRAZOLE 40 MG/10 ML VIAL IVP SCH (07:39)
[2020-09-03] MEDS: LEVOFLOXACIN 500 MG TAB PO SCH (07:39)
[2020-09-03] MEDS: HEPARIN SODIUM,PORCINE/PF 5,000 UNIT/0.5 ML SYRINGE SQ SCH ×2 (07:39→20:19)
[2020-09-03] MEDS: TAMSULOSIN 0.4 MG CAP.ER.24H PO SCH (07:39)
[2020-09-03] MEDS: DULoxetine HCL 60 MG CAPSULE.DR PO SCH (07:40)
[2020-09-03] MEDS: valACYclovir HCL 1,000 MG TABLET PO SCH ×3 (07:40→20:19)
[2020-09-03] MEDS: FLUTICASONE 50MCG/SPRAY NASAL 16GM EA NOSTRIL SCH (07:40)
[2020-09-03] MEDS: busPIRone HCl 10 MG TAB PO SCH ×2 (07:40→20:20)
[2020-09-03] MEDS: ACETAMINOPHEN TAB 325 MG TAB PO PRN ×3 (09:36→20:20)
--- NOTE | 2020-09-03 17:02 | P.PN ---
Subjective Progress Note Date: 09/03/20 69-year-old female presented to the ED with altered mental status. The patient was confused. The patient was found to be wandering around in [place] in her apartment.. The patient was able to answer questions upon frequent questionings. The patient's was complaining of some shortness of breath. Es sentially the history was limited and patient himself was very poor in her history providing ability. Pupils are constricted. She was found to have anion gap metabolic acidosis with elevated lactic acid level. White cell count was 36. Chest x-ray showed normal pulmonary infiltrates. Aspiration was considered and the patient was given Levaquin. The patient was also found to have an acute kidney injury in the creatinine was up to 6.5. He was 77 and the patient has anion gap metabolic acidosis with a serum bicarb of 12. The blood gas showed a pH of 7.25 with a pCO2 of 31 and pO2 of 69 and this was on FiO2 of 45%. The patient also had +1 bilirubin and +1 protein and her UA, negative for any infection, urine toxin was positive for opiates, the COVID 19 testing was negative. The patient was started on IV fluids and currently the patient is receiving normal saline at the rate of 130 mL an hour. The patient was given a dose of Levaquin in the emergency department. She was placed also on Levaquin. CAT scan of the brain showed mild patchy burden of chronic small vessel ischemic disease. No acute abnormalities noted. The ultrasound the kidneys showed no evidence of hydronephrosis. The patient is known to have RA and hypertension. The patient is currently on 10 L by nasal cannula to maintain saturation above 90%. Overnight, the patient was given IV fluids and the patient was also given bicarb infusion after being given normal saline. The patient was seen by nephrology. Renal function is improving and the patient is producing adequate amount of urine output. Oxygenation is still impaired and the patient on 10 L of oxygen by nasal cannula. She has crackling and there is still consideration of Covid 19 infection. 09/02/2020 Patient is seen and evaluated and follow-up in mentation is improved and patient is more alert and oriented. Patient is being followed by pulmonary along with nephrology and was seen and evaluated by psychiatry. Patient was deemed unable to make appropriate decisions and social work is following with the possibility of needing to obtain guardianship as she lives alone. Patient does have friends and family that live nearby that sporadically check on her but not on a consistent basis. Patient continues to require or liters high flow nasal cannula with oxygen saturation of 94%. Discussed with nursing staff about weaning FiO2 as tolerated and increasing activity as well. Discontinue indwelling Marie catheter and monitor for signs of retention. Patient is very persistent on wanting to leave and go home. Chest x-ray today shows patchy bibasilar infiltrates without significant change. 09/03/2020 Patient is seen in follow-up this morning continues to be maintained on 4 L of oxygen via high flow nasal cannula. Pulmonary and nephrology following. Social work also following as she may require emergency guardianship for possible placement as she lives alone with an unsafe discharge plan at this time. Marie catheter was removed today and will monitor for retention. Working with physical therapy daily and patient continues to refuse rehab. Per nursing staff, Patient stated she was having some discomfort and itchiness in the sacral area which appears to be herpes and patient was started on Valtrex and will con tinue at this time. Patient states that she has had multiple episodes of this rash with outbreaks intermittently for the last few years. Patient could not recall the medication she took for this. Patient reports to some relief after starting Valtrex yesterday. Will continue to monitor closely. Continue to wean FiO2 as tolerated. Review of systems: Constitutional: No reports of fatigue, fever, or chills Cardiovascular: No reports of chest pain or palpitations Respiratory: No reports of shortness of breath or cough GI: No reports of nausea, vomiting, or diarrhea : No reports of dysuria or retention Neurovascular: No reports of weakness or numbness All medications have been reviewed Active Medications Acetaminophen (Acetaminophen Tab 325 Mg Tab) 650 mg PO Q4HR PRN PRN Reason: Fever and/ or Pain Last Admin: 09/03/20 13:32 Dose: 650 mg Documented by: Albuterol Sulfate (Albuterol Hfa Inhaler) 2 puff INHALATION RT-Q4H PRN PRN Reason: shortness of breath Last Admin: 09/02/20 21:02 Dose: 2 puff Documented by: Buspirone HCl (Buspirone Hcl 10 Mg Tab) 10 mg PO BID [facility] Last Admin: 09/03/20 07:40 Dose: 10 mg Documented by: Duloxetine HCl (Duloxetine Hcl 60 Mg Capsule.) 60 mg PO DAILY [facility] Last Admin: 09/03/20 07:40 Dose: 60 mg Documented by: Fluticasone Propionate (Fluticasone 50mcg/[place] Nasal 16gm) 2 spray EA NOSTRIL DAILY [facility] Last Admin: 09/03/20 07:40 Dose: 2 spray Documented by: Haloperidol Lactate (Haloperidol Lactate 5 Mg/Ml 1 Ml Vial) 2.5 mg IM Q8HR PRN PRN Reason: Agitation or Acute Psychosis Last Admin: 08/30/20 02:24 Dose: 2.5 mg Documented by: Heparin Sodium (Porcine) (Heparin Sodium,Porcine/Pf 5,000 Unit/0.5 Ml Syringe) 5,000 unit SQ Q12HR [facility] Last Admin: 09/03/20 07:39 Dose: 5,000 unit Documented by: Sodium Chloride (Saline 0.9%) 1,000 mls @ 20 mls/hr IV .Q24H [facility] Last Admin: 09/02/20 18:46 Dose: Not Given Documented by: Levofloxacin (Levofloxacin 500 Mg Tab) 500 mg PO DAILY [facility] Last Admin: 09/03/20 07:39 Dose: 500 mg Documented by: Miscellaneous Information (Pneumonia Protocol Utilized 1 Each Misc) 1 each PO ONCE PRN PRN Reason: Per Protocol Olanzapine (Olanzapine 5 Mg Tab) 5 mg PO HS [facility] Last Admin: 09/02/20 20:04 Dose: 5 mg Documented by: Pantoprazole Sodium (Pantoprazole 40 Mg Tablet) 40 mg PO BID [facility] Tamsulosin HCl (Tamsulosin 0.4 Mg Cap.Er.24h) 0.4 mg PO PC-BRKFST [facility] Last Admin: 09/03/20 07:39 Dose: 0.4 mg Documented by: Valacyclovir HCl (Valacyclovir Hcl 1,000 Mg Tablet) 1,000 mg PO TID [facility] Last Admin: 09/03/20 15:50 Dose: 1,000 mg Documented by: Objective - Vital Signs Vital signs: Vital Signs Temp 98.2 F 09/03/20 09:47 Pulse 71 09/03/20 09:47 Resp 20 09/03/20 09:47 BP 100/65 09/03/20 09:47 Pulse Ox 94 L 09/03/20 09:47 Intake & Output 09/02/20 09/03/20 09/03/20 18:59 06:59 18:59 Output Total 500 1100 Balance -500 -1100 Weight 54.431 kg Output: Urine 500 1100 Other: Voiding Method Indwelling Catheter Indwelling Catheter # Voids 1 # Bowel Movements 1 - Exam GENERAL: The patient is more alert and oriented 2-3, not in any acute distress. Well developed, well nourished. Temp is 98.2F, pulse is 92, respirations are 19, blood pressures 95/56, oxygen saturation is 94% on 4 L high flow nasal cannula HEENT: PERRLA. EOMI. No scleral icterus. No conjunctival pallor. Normocephalic, atraumatic. No pharyngeal erythema. No thyromegaly. CARDIOVASCULAR: S1 and S2 muffled. PULMONARY: diminished breath sounds bilaterally with A few scattered rhonchi noted bilaterally ABDOMEN: Soft, nontender, nondistended, normoactive bowel sounds. No palpable organomegaly. MUSCULOSKELETAL: No joint swelling or deformity. EXTREMITIES: No cyanosis, clubbing, or pedal edema. NEUROLOGICAL: Able to move all 4 extremities, no focal deficits noted SKIN: Red excoriated lesions with some breaks in the skin noted in the sacral area. - Labs CBC & Chem 7: 08/31/20 07:17 08/31/20 07:17 Labs: Microbiology - Last 24 Hours (Table) 08/30/20 09:59 Blood Culture - Preliminary Blood No Growth after 96 hours Assessment and Plan Assessment: -possible aspiration pneumonia -Hyperkalemia due to renal failure, improving -Herpetic lesions noted on the sacral area -Leukocytosis, improving -Altered mental status, toxic encephalopathy possibly because of opiate overdose -Acute upper GI bleed secondary to possible gastritis -Anion gap metabolic acidosis probably lactic acidosis which is improved with no clear evidence of sepsis at this time -Acute renal failure on chronic kidney disease stage II acute renal failure secondary to prerenal azotemia maybe even acute tubular necrosis -Hypertension -history of rheumatoid arthritis -Depression Plan: Continue with current medications and antibiotics. Continue to wean FiO2 as tolerated. Remove indwelling Marie catheter and monitor for retention. Multiple medical consultations following including nephrology, pulmonary, and psychiatry. Social work also following as patient is unable to make appropriate decisions regarding her care and safety for safe discharge plan and will need to review further options. Possible emergent guardianship may be required. Patient continues to be on high flow nasal cannula at 4 L and a prescription was provided for home oxygen to case management. Herpetic lesions noted on the sacral area and was started on Valtrex. Due to multiple complex medical issues, prognosis is guarded. Further recommendations to follow based on the clinical course of the patient.
[2020-09-03] MEDS: SODIUM CHLORIDE 0.9% 1,000 ML IV SCH (18:49)
[2020-09-03] MEDS: OLANZapine 5 MG TAB PO SCH (20:20)
[2020-09-03] MEDS: PANTOPRAZOLE 40 MG TABLET PO SCH (20:20)
[2020-09-04 06:54] LABS: Basophils # (A) 0.1 k/uL (0-0.2); Basophils % (A) 1 %; Eosinophils # (A) 0.9 k/uL (0-0.7); Eosinophils % (A) 8 %; HGB 10.1 gm/dL (11.4-16.0); Lymphocytes # (A) 1.9 k/uL (1.0-4.8); Lymphocytes % (A) 17 %; MCH 31.7 pg (25.0-35.0); MCHC 32.7 g/dL (31.0-37.0); MCV 96.9 fL (80.0-100.0); Mean Platelet Volume 6.9; Monocytes # (A) 0.9 k/uL (0-1.0); Monocytes % (A) 8 %; Neutrophils # (A) 7.2 k/uL (1.3-7.7); Neutrophils % (A) 64 %; Platelet Count 386 k/uL (150-450); WBC 11.3 k/uL (3.8-10.6)
[2020-09-04 07:08] LABS: African American GFR (CKD) 82 (>60 ml/min/1.73 sqM); Anion Gap 3 mmol/L; Blood Urea Nitrogen 7 mg/dL (7-17); Calcium 8.4 mg/dL (8.4-10.2); Carbon Dioxide 26 mmol/L (22-30); Chloride 111 mmol/L (98-107); Glucose 109 mg/dL (74-99); Non-African American GFR(CKD) 71 (>60 ml/min/1.73 sqM); Potassium 3.6 mmol/L (3.5-5.1); Sodium 140 mmol/L (137-145)
[2020-09-04] MEDS: HEPARIN SODIUM,PORCINE/PF 5,000 UNIT/0.5 ML SYRINGE SQ SCH (08:52)
[2020-09-04] MEDS: PANTOPRAZOLE 40 MG TABLET PO SCH (08:52)
[2020-09-04] MEDS: busPIRone HCl 10 MG TAB PO SCH (08:52)
[2020-09-04] MEDS: LEVOFLOXACIN 500 MG TAB PO SCH (08:52)
[2020-09-04] MEDS: valACYclovir HCL 1,000 MG TABLET PO SCH (08:52)
[2020-09-04] MEDS: TAMSULOSIN 0.4 MG CAP.ER.24H PO SCH (08:52)
[2020-09-04] MEDS: DULoxetine HCL 60 MG CAPSULE.DR PO SCH (08:52)
[2020-09-04] MEDS: FLUTICASONE 50MCG/SPRAY NASAL 16GM EA NOSTRIL SCH (08:53)
[2020-09-04 11:08] VITALS: BP 108/67; PULSE 75; RESP 16; TEMP 97.9
--- NOTE | 2020-09-04 14:16 | P.PN ---
Progress Note - Text Progress Note Date: 09/04/20 Interval History: Patient was seen today for psychiatric follow-up to reevaluate patient's capac ity. Patient has not been receiving Haldol prn lately and has reportedly been more cooperative with nursing staff and taking her medications. Patient apparently has been working with PT/OT and has apparently been cleared to go home with assistance for ADLs and IADLs. Patient appeared to be more cooperative and appropriate with tag writer today. She showed improvement in her impulse control and frustration tolerance. She was more goal oriented in her thought process. She spoke about speaking to other staff members and working with PT and states that she does not need oxygen any longer at home. She claims that she would like to go home today and was able to speak about the risks of a potential fall at home and states that she has a cell phone that she is going to keep with her and noted that the fire department is close to her and that she can reach out to them if needed.she is continuing to refuse rehab and appreciates the risks more today. She claims that her mood is "fine" and denies any depression today. She correctly stated her name and that she was in hospital and knew that today was September 04, 2020 and knows her full name. She states that she is able to sleep better now with the medications. At this time patient denies any suicidal or homical ideations, intent or plan. Patient denies any auditory, visual hallucinations. Patient denies any side effects from the medications and has been compliant with meds. Mental Status Exam: General Appearance: Patient appears to be stated age is alert, improvement in her concentration and is attempting to cooperate. Patient appears to have fair hygiene and grooming wearing hospital gown with improving eye contact. Behavior: Lying in bed with no agitation. more cooperative today Speech: Patient's speech is fluent and nonpressured. Mood/Affect: She reports that her mood is "good" and affect is congruent Suicidality/Homicidality: Denies Perceptions: Denies any auditory or visual hallucinations. Though content/process: more golal oriented. logical. Not endorsing any paranoia or delusions. Memory and concentration: Alert and oriented 3, improvement in her concentration. Judgment and insight: improving mildly Assessment Delirium likely multiple etiologies including acute renal failure, electrolytes, possibly opiates, and infection, resolved. History of depression Plan: -At this time patient DOES NOT meet criteria for inpatient psychiatric admission. -At this time patient DOES have decision making capacity at this time and is unable to reason through and communicate/appreciate the risks, benefits and alternatives to treatment. -Delirium precautions recommended with patient including - avoiding use of narcotics and [employer] sedatives, limit anticholinergic medications when possible, frequent re-orientation, minimize use of restraints, open window shades during the day and close them at night -Would recommend the following medication changes/additions: Continue with BuSpar 10 mg twice a day and Cymbalta 60 mg daily as these are her home dose and medications. Continue with Haldol IM 2.5 mg IM q8prn for agitation. Continue with Zyprexa 5 mg qhs for psychosis/delirium/insomnia. -Communicated plan to patient's nurse and [facility] [place]. -patient will need resources for MH follow up upon d/c -Patient will not be going home with O2 and has been apparently cleared by PT OT. -Home health services consult for help at home with her comorbities and meds. -At this time psychiatry will sign off. -Please contact with any questions.
[2020-09-04] MEDS: ACETAMINOPHEN TAB 325 MG TAB PO PRN (14:50)
--- NOTE | 2020-09-05 09:26 | P.DS ---
Providers Date of admission: 08/26/20 17:41 Expected date of discharge: 09/04/20 Attending physician: Berto Ascencio MD Consults: 08/26/20 17:40 Consult Physician Urgent Consulting Provider: Jolie Miranda Consult Reason/Comments: arf Do you want consulting provider notified?: Yes 08/26/20 17:42 Consult Physician Urgent Consulting Provider: Suyapa Moise Consult Reason/Comments: Dyspnea, pneumonia, sepsis Do you want consulting provider notified?: Yes 08/29/20 09:25 Consult Physician Urgent Consulting Provider: Jeremias Lao Consult Reason/Comments: mental capacity, lives alone, found wandering prior to admit Do you want consulting provider notified?: Yes Primary care physician: Marina Franklin Hospital Course: Final diagnosis -possible aspiration pneumonia -Hyperkalemia due to renal failure, improved -Herpetic lesions noted on the sacral area -Leukocytosis, improving -Altered mental status, toxic encephalopathy possibly because of opiate overdose -Acute upper GI bleed secondary to possible gastritis -Anion gap metabolic acidosis probably lactic acidosis which is improved with no clear evidence of sepsis at this time -Acute renal failure on chronic kidney disease stage II acute renal failure secondary to prerenal azotemia maybe even acute tubular necrosis -Hypertension -history of rheumatoid arthritis -Depression Discharge disposition Patient is being discharged in a stable condition with guarded prognosis to home. Patient will continue with home care in the outpatient setting. Patient will follow-up with Dr. Franklin in the outpatient setting upon discharge. Patient is to continue with Levaquin 500 mg daily for the next 4 days to complete the course. Patient will also continue with albuterol and Symbicort inhalers in the outpatient setting. Patient will need to follow-up with pulmonary in the outpatient setting as well. Total time taken is greater than 35 minutes. Hospital course This is a 70-year-old female who was recently admitted with altered mental status with confusion along with shortness of breath and was being closely monitored. Severe electrolyte abnormalities along with possible acute upper GI bleed and acute renal failure and was being closely monitored. Multiple medical consultations following including nephrology, pulmonary, psychiatry. Patient continued to require oxygen although is currently 95% on room air and not qualifying for home O2. Patient was seen and evaluated by psychiatry and medication adjustments have been made and will follow-up closely in the outpatient setting with [facility] along with her primary care provider Dr. Franklin upon discharge. Patient had herpetic lesions noted on the sacrum area and states she has previous history of this and was started on Valtrex and will continue in the outpatient setting. Will also continue on Levaquin 500 milligrams daily for the next 4 days to complete the course. Currently no reports of chest pain, shortness of breath, or palpitations. Patient is afebrile. No reports of nausea or vomiting and patient is tolerating diet. Patient will be discharged home today. Patient will continue with home care in the outpatient setting. Guarded prognosis. On exam vital signs are stable. Cardio S1, S2 are muffled. Respiratory system shows diminished breath sounds at the bases with no wheezing or rhonchi noted. Abdomen is soft and nontender. Nervous system shows no focal deficits. Please refer to medication reconciliation sheet for a list of medications. Patient Condition at Discharge: Stable Plan - Discharge Summary New Discharge Prescriptions: New Tamsulosin [Flomax] 0.4 mg PO PC-BRKFST 30 Days #30 cap.er.24h valACYclovir HCL [Valtrex] 1,000 mg PO TID 5 Days #15 tablet Albuterol Inhaler [Ventolin Hfa Inhaler] 2 puff INHALATION RT-Q4H PRN 30 Days #1 puff PRN Reason: shortness of breath OLANZapine [ZyPREXA] 5 mg PO HS 30 Days #30 tab Budesonide/Formoterol Fumarate [Symbicort 160-4.5 Mcg Inhaler] 1 puff IH BID 30 Days #1 hfa.aer.ad Levofloxacin [Levaquin] 500 mg PO DAILY 4 Days #4 tab Pantoprazole [Protonix] 40 mg PO DAILY 30 Days #30 tablet. Acetaminophen Tab [Tylenol] 650 mg PO Q4HR PRN tab PRN Reason: Fever And/ Or Pain Continue Furosemide [Lasix] 40 mg PO DAILY Carisoprodol [Soma] 350 mg PO TID DULoxetine HCL [Cymbalta] 60 mg PO DAILY Hydroxychloroquine Sulfate [Plaquenil] 200 mg PO DAILY busPIRone HCl [Buspar] 10 mg PO BID Methotrexate Sod 25mg/Ml [place] 15 mg SQ Q7D Hydrocodone/Acetaminophen [[place] 10-325] 1 tab PO Q4H PRN PRN Reason: Pain Fluticasone Nasal [place] [Flonase Nasal [place]] 2 spr EA NOSTRIL DAILY Sulfamethoxazole/Trimethoprim [Bactrim DS 800-160 mg] 1 tab PO BID Discontinued Enalapril [Vasotec] 10 mg PO DAILY Morphine Sulfate [Ms Contin] 30 mg PO Q12HR PRN PRN Reason: Pain Discharge Medication List Carisoprodol [Soma] 350 mg PO TID 09/03/15 [History] DULoxetine HCL [Cymbalta] 60 mg PO DAILY 09/03/15 [History] Furosemide [Lasix] 40 mg PO DAILY 09/03/15 [History] Hydroxychloroquine Sulfate [Plaquenil] 200 mg PO DAILY 09/03/15 [History] Hydrocodone/Acetaminophen [[place] 10-325] 1 tab PO Q4H PRN 05/01/19 [History] Methotrexate Sod 25mg/Ml [place] 15 mg SQ Q7D 05/01/19 [History] busPIRone HCl [Buspar] 10 mg PO BID 05/01/19 [History] Fluticasone Nasal [place] [Flonase Nasal [place]] 2 spr EA NOSTRIL DAILY 08/26/20 [History] Sulfamethoxazole/Trimethoprim [Bactrim DS 800-160 mg] 1 tab PO BID 08/26/20 [History] Acetaminophen Tab [Tylenol] 650 mg PO Q4HR PRN tab 09/04/20 [Rx] Albuterol Inhaler [Ventolin Hfa Inhaler] 2 puff INHALATION RT-Q4H PRN 30 Days #1 puff 09/04/20 [Rx] Budesonide/Formoterol Fumarate [Symbicort 160-4.5 Mcg Inhaler] 1 puff IH BID 30 Days #1 hfa.aer.ad 09/04/20 [Rx] Levofloxacin [Levaquin] 500 mg PO DAILY 4 Days #4 tab 09/04/20 [Rx] OLANZapine [ZyPREXA] 5 mg PO HS 30 Days #30 tab 09/04/20 [Rx] Pantoprazole [Protonix] 40 mg PO DAILY 30 Days #30 tablet. 09/04/20 [Rx] Tamsulosin [Flomax] 0.4 mg PO PC-BRKFST 30 Days #30 cap.er.24h 09/04/20 [Rx] valACYclovir HCL [Valtrex] 1,000 mg PO TID 5 Days #15 tablet 09/04/20 [Rx] Follow up Appointment(s)/Referral(s): Marina Franklin MD [Primary Care Provider] - 09/09/20 4:45 pm (this will be a telephone visit) Venkatesh Christina DO [Doctor of Osteopathic Medicine] - 09/25/20 2:45 pm (with Cierra Cabrera) [facility], [NON-STAFF] - As Needed Patient Instructions/Handouts: Acute Kidney Injury (DC) Activity/Diet/Wound Care/Special Instructions: Activity Limited until follow-up Follow-up with primary care provider upon discharge Follow-up with pulmonary in the outpatient setting Continue with oxygen 4 L via nasal cannula Continue current diet Discharge Disposition: HOME WITH HOME HEALTH SERVICES
--- NOTE | 2020-09-30 08:35 | CDI ---
Documentation Clarification Form Date: 09/30/2020 07:36:00 AM From: Puneet Duncan Phone: If questions, contact Rena Kumar between 9 am and 5 pm at [phone] Admit Date: 08/26/2020 05:41:00 PM Patient Name: Karyn Schofield Visit Number: [id number] Discharge Date: 09/04/2020 03:34:00 PM ATTENTION: The Clinical Documentation Specialists (CDI) and [facility] Coding Staff appreciate your assistance in clarifying documentation. Please respond to the clarification below the line at the bottom and electronically sign. The CDI & [facility] Coding staff will review the response and follow-up if needed. Please note: Queries are made part of the Legal Health Record. If you have any questions, please contact the author of this message via ITS. Dr. Amanda Green Aspiration pneumonia documented in the H&P, PN, consult and Discharge summary impression possible aspiration pneumonia & Acute hypoxia respiratory failure secondary to pneumonia currently on high f low nasal cannula. Additional clarification regarding the Etiology of aspiration pneumonia is requested if known. Patient admitted with AMS, Difficulty in breathing found to be aspiration pneumonia with acute hypoxic respiratory failure. Altered mental status, toxic encephalopathy possibly because of opiate overdose, In addition the patient has a component of metabolic encephalopathy secondary to acute kidney injury/renal failure -Acute upper GI bleed secondary to possible gastritis -Anion gap metabolic acidosis probably lactic acidosis which is improved with no clear evidence of sepsis at this time. Psych consult impression : Delirium likely multiple etiologies including acute renal failure, electrolytes, possibly opiates, and infection. GI Consult impression : Coffee-ground emesis x1 in the emergency room yesterday, Shortness of breath and chest x-ray showing bilateral pulmonary infiltrates suspicious for pneumonia, possible aspiration. Presently on high-flow nasal cannula at 10 L. COVID-19 was negative. Pulmonology consult impression : acute hypoxic respiratory failure with bilateral pulmonary infiltrates involving the lung bases, consider underlying aspiration. The patient is currently on 10 L O2 by nasal cannula, her Covid 19 testing was negative, he had nevertheless, there is still a high suspicion and I will suggest repeating the study, altered mental status. In addition, the patient has a component of metabolic encephalopathy secondary to acute kidney injury/renal failure GI bleed is suspected and the patient some coffee-ground emesis and the patient is considered to have an underlying upper GI bleeding. History/Risk Factors: Difficulty breathing found to be aspiration pneumonia with acute hypoxic respiratory failure. Clinical Indicators: WBC/Left shift:36.1, 17.7, 17.5, 18.5, 12.8, 11.3. ABG shows pH 7.25, CO2 30.6, O2 68.9. Vitals in ED : T- 98.8 F, Pulse-97, RR-24. O2-87%-94%. X-ray: Chest x-ray showing bilateral pulmonary infiltrates suspicious for pneumonia, possible aspiration. Lung/Breathing assessment : In ED , Respiratory exam: Present: normal lung sounds bilaterally & General appearance: alert, in no apparent distress &In H&P : Chest is clear to auscultation, no wheezing or crackles Treatment: Antibiotics : Levofloxacin IV, O2 : HFNC/NC 4-11L. Please clarify the Etiology of aspirational pneumonia, if known: [ ] Aspiration Pneumonia, Due to food or vomitus [ ] Aspiration Pneumonia, Due to opiate overdose [ ] Other, please specify [ ] Unable to determine Aspiration Pneumonia, Due to opiate overdose MTDD
== END 2020-09-04 15:34 | disposition home health service (06) | DRG 917 ==
LOC: EC 14:54 → 4SSUR 17:41
PROVIDERS: ADMIT Internal Medicine; ATTEND Internal Medicine
DX: T40.601A Poisoning by unspecified narcotics, accidental (unintentional), initial encounter (principal); J69.0 Pneumonitis due to inhalation of food and vomit; G92 Toxic encephalopathy; K29.71 Gastritis, unspecified, with bleeding; N17.0 Acute kidney failure with tubular necrosis; J96.01 Acute respiratory failure with hypoxia; G93.41 Metabolic encephalopathy; E87.2 Acidosis; F05 Delirium due to known physiological condition; B00.89 Other herpesviral infection; E87.5 Hyperkalemia; N18.2 Chronic kidney disease, stage 2 (mild); I12.9 Hypertensive chronic kidney disease with stage 1 through stage 4 chronic kidney disease, or unspecified chronic kidney disease; D50.9 Iron deficiency anemia, unspecified; M06.9 Rheumatoid arthritis, unspecified; Z20.822 Contact with and (suspected) exposure to COVID-19; M19.90 Unspecified osteoarthritis, unspecified site; F41.9 Anxiety disorder, unspecified; F32.9 Major depressive disorder, single episode, unspecified; D72.829 Elevated white blood cell count, unspecified; Z79.899 Other long term (current) drug therapy; Z88.1 Allergy status to other antibiotic agents; Z88.5 Allergy status to narcotic agent; Z88.8 Allergy status to other drugs, medicaments and biological substances; Z90.89 Acquired absence of other organs; Z90.710 Acquired absence of both cervix and uterus; Z87.891 Personal history of nicotine dependence; Z91.83 Wandering in diseases classified elsewhere
CPT/HCPCS: 36415; 36600; 70450; 70490; 71045; 71046; 71250; 76770; 80048; 80053; 80306; 81001; 82140; 82570; 82728; 82803; 82805; 83540; 83550; 83605; 83735; 84300; 84484; 85025; 85027; 85610; 85730; 86769; 87040; 87635; 93005; 94640; 94760; 99291

== ENCOUNTER 2021-03-23 16:28 | Emergency (ER) | payer MEDICARE, BC ==
[2021-03-23 16:34] VITALS: BP 132/90; PULSE 109; RESP 18; TEMP 97
[2021-03-23] MEDS ORDERED: KETOROLAC 15 MG/ML 1 ML VIAL IM STA (16:50)
[2021-03-23] MEDS ORDERED: DIPH,PERTUS(ACELL)TETVAC-LF 0.5 ML VIAL IM ONE (16:50)
--- NOTE | 2021-03-23 17:32 | XR ---
EXAMINATION TYPE: XR hand complete LT DATE OF EXAM: 03/23/2021 COMPARISON: 09/03/2015 HISTORY: Pain TECHNIQUE: 2 views FINDINGS: There is some narrowing of the IP joint spaces. There is narrowing and spurring at the firs t carpometacarpal joint. There is no subluxation. There is no fracture nor dislocation. There is defo rmity of the distal radius and ulna consistent with old fractures. IMPRESSION: Degenerative changes. No acute fracture seen.
[2021-03-23] MEDS ORDERED: DOXYCYCLINE 100 MG CAP PO STA (17:35)
--- NOTE | 2021-03-23 17:38 | ED ---
Animal Bite HPI - General Chief Complaint: Animal Bite Stated Complaint: Dog Bite on L Hand Time Seen by Provider: 03/23/21 16:46 Source: patient, RN notes reviewed Mode of arrival: ambulatory Limitations: no limitations - History of Present Illness Initial Comments: Patient is a 70-year-old female that presents to the emergency department stating that she was bit by her dog on the left hand. She notes that she was trying to trim his hair when he turned around and snapped at her. She notes that the dog is older and has several health complications and didn't mean to do it on purpose. Patient notes that she does not want sutures at this time. She notes that she cleaned the areas well and would just like a tetanus shot and antibiotics. She notes that it is also about a 8 out of 10 for pain. She is otherwise well-appearing. She denied any issues or complaints. She denied chest pain shortness of breath headache nausea vomiting diarrhea constipation fever fatigue chills. - Related Data Home Medications Medication Instructions Recorded Confirmed Carisoprodol [Soma] 350 mg PO TID 09/03/15 03/23/21 DULoxetine HCL [Cymbalta] 60 mg PO DAILY 09/03/15 03/23/21 Furosemide [Lasix] 40 mg PO BID 09/03/15 03/23/21 Hydroxychloroquine Sulfate 200 mg PO DAILY 09/03/15 03/23/21 [Plaquenil] Hydrocodone/Acetaminophen [[place] 1 tab PO Q6H PRN 05/01/19 03/23/21 10-325] busPIRone HCl [Buspar] 10 mg PO BID 05/01/19 03/23/21 Fluticasone Nasal [place] [Flonase 2 spr EA NOSTRIL DAILY PRN 08/26/20 03/23/21 Nasal [place]] Calcium Carbonate [Calcium] 600 mg PO DAILY 03/23/21 03/23/21 Cyanocobalamin (Vitamin B-12) 1,000 mcg PO DAILY 03/23/21 03/23/21 [Vitamin B-12] Famotidine 20 mg PO BID 03/23/21 03/23/21 Folic Acid 0.4 mg PO DAILY 03/23/21 03/23/21 Methotrexate 250mg/10ml 125 ml IM FR 03/23/21 03/23/21 Previous Rx's Medication Instructions Recorded Doxycycline Monohydrate [Monodox] 100 mg PO Q12HR #20 cap 03/23/21 Allergies Allergy/AdvReac Type Severity Reaction Status Date / Time adalimumab [From Humira] Allergy Rash/Hives Verified 03/23/21 17:27 cephalexin monohydrate Allergy Rash/Hives Verified 03/23/21 17:27 [From Keflex] meperidine HCl [From Demerol] AdvReac Nausea & Verified 03/23/21 17:27 Vomiting TB Med Allergy Unknown Uncoded 03/23/21 16:34 Review of Systems ROS Statement: Those systems with pertinent positive or pertinent negative responses have been documented in the HPI. ROS Other: All systems not noted in ROS Statement are negative. Past Medical History Past Medical History: Hypertension, Rheumatoid Arthritis (RA) History of Any Multi-Drug Resistant Organisms: None Reported Past Surgical History: Hysterectomy, Joint Replacement, Tonsillectomy Past Psychological History: No Psychological Hx Reported Smoking Status: Former smoker Past Alcohol Use History: None Reported Past Drug Use History: None Reported General Exam Limitations: no limitations General appearance: alert, in no apparent distress Head exam: Present: atraumatic, normocephalic, normal inspection Eye exam: Present: normal appearance, PERRL, EOMI. Absent: scleral icterus, conjunctival injection, periorbital swelling ENT exam: Present: normal exam, mucous membranes moist Neck exam: Present: normal inspection Respiratory exam: Present: normal lung sounds bilaterally. Absent: respiratory distress, wheezes, rales, rhonchi, stridor Cardiovascular Exam: Present: regular rate, normal rhythm, normal heart sounds. Absent: systolic murmur, diastolic murmur, rubs, gallop, clicks Extremities exam: Present: normal inspection, full ROM, normal capillary refill. Absent: tenderness, pedal edema, joint swelling, calf tenderness Neurological exam: Present: alert, oriented X3 Psychiatric exam: Present: normal affect, normal mood Skin exam: Present: warm, dry, intact, normal color. Absent: rash Expanded Type of lesion: Present: laceration (21 cm lacerations to the thenar aspect of the left hand, one 1 cm laceration to the dorsal aspect of the left hip. Margins well approximated, nonbleeding.) Course Vital Signs 03/23/21 16:31 Temperature 97.0 F L Pulse Rate 109 H Respiratory 18 Rate Blood Pressure 132/90 O2 Sat by Pulse 98 Oximetry Medical Decision Making - Medical Decision Making 70-year-old female with dog bite to left hand. Tetanus, 100 mg of doxycycline, 15 mg of Toradol ordered. X-ray left hand negative for any acute fractures. Patient is declining sutures at this time as wounds are well approximated nonbleeding. Antibiotics sent to pharmacy. Case discussed with Dr. David, patient discharge home. - Radiology Data Radiology results: report reviewed, image reviewed X-ray left hand: Degenerative changes. No fracture seen. Disposition Clinical Impression: Dog bite Disposition: HOME SELF-CARE Condition: Stable Instructions (If sedation given, give patient instructions): Animal Bite (ED) Additional Instructions: Please return to the Emergency Department if symptoms worsen or any other concerns. Follow-up with primary care in 1-2 days. Keep area clean and dry. Take antibiotics as prescribed until complete. Prescriptions: Doxycycline Monohydrate [Monodox] 100 mg PO Q12HR #20 cap Is patient prescribed a controlled substance at d/c from ED?: No Referrals: Marina Franklin MD [Primary Care Provider] - 1-2 days Time of Disposition: 17:38
== END 2021-03-23 18:29 | disposition home or self-care (01) ==
LOC: EC 16:28
DX: S61.452A Open bite of left hand, initial encounter (principal); I10 Essential (primary) hypertension; M06.9 Rheumatoid arthritis, unspecified; Z88.1 Allergy status to other antibiotic agents; Z88.5 Allergy status to narcotic agent; Z79.899 Other long term (current) drug therapy; Z90.710 Acquired absence of both cervix and uterus; Z87.891 Personal history of nicotine dependence; W54.0XXA Bitten by dog, initial encounter
CPT/HCPCS: 99283; 90471; 96372; 73130; 90715; J1885